=== PATIENT | female | born 1930 | race Caucasian/White ===

== ENCOUNTER → 2017-04-02 | Outpatient (CLI) | payer MEDICARE ==
[2014-11-16 15:46] VITALS: BMI 31.6
[~2017-04-02] MED LIST: ACET-2007 PO; ALEN70TA43 PO; ASPI-1471 PO; ASPI81TA86 PO; ATOR20TA65 PO; AZIT-17 PO; BISA-71 PO; BLOO-1777 MC; BLOO1EAC MC; BLOO1STR16 MC; CALC-488 PO; CARB15DR74 OP; CEFU250T67 PO; CEPH-13 PO; CHOL10005 PO; CHOL100052 PO; CHOL200038 PO; DOCU-416 PO; FLU IM; FLU150 PO; FURO-45 PO; FURO-47 PO; GLIM2TAB43 PO; GLIM4TAB50 PO; INSU100I30 SQ; INSU100I30 SUBQ; LANC-1295 MC; LANI SUBQ; LEV112 PO; LEVO-3 PO; LID5T TP; LOR5/325 PO; LOVA40TA89 PO; MAGN296S6 PO; METF-410 PO; METF-415 PO; MIRA50TA PO; MOM PO; NITR-105 PO; NYST15CR32 TP; ONDA4TAB PO; ONDA4TAB9 PO; OXYB10TA21 PO; OXYGENHOME INH; PHEN200T32 PO; PNEU0.5D3 IM; POLY17PO25 PO; POTA-23 PO; POTA10CA40 PO; POTA20TA85 PO; RIS150PT PO; SIMV-54 PO; SOLI10TA8 PO; SPIR25TA76 PO; SPIR25TA78 PO; SULF-198 PO; TERB250T74 PO; TRAM-420 PO; TRAM-627 PO; WARF-18 PO; WARF2.5T11 PO; WARF2TAB81 PO; WARF3TAB35 PO; WARF3TAB43 PO; WARF6TAB36 PO; [UNRECOGNIZED DRUG - CODE] EXT
== END ==
LOC: LAB 09:08
PROVIDERS: ATTEND Emergency Medicine
DX: J02.9 Acute pharyngitis, unspecified (principal)
CPT/HCPCS: 87070

== ENCOUNTER → 2017-04-09 | Outpatient (CLI) | payer MEDICARE ==
[2014-11-16 15:46] VITALS: BMI 31.6
[~2017-04-09] MED LIST changes: +MENT7.6L2 PO
== END ==
LOC: ZZSPRING 03:12
PROVIDERS: ATTEND Emergency Medicine
DX: R07.0 Pain in throat (principal); E11.9 Type 2 diabetes mellitus without complications

== ENCOUNTER → 2017-04-09 | Outpatient (CLI) | payer MEDICARE ==
[2014-11-16 15:46] VITALS: BMI 31.6
[2017-04-09 08:51] LABS: INR 2.54
== END ==
LOC: ZZSPRING 03:12
PROVIDERS: ATTEND Pharmacist Pharmacotherapy
DX: I26.99 Other pulmonary embolism without acute cor pulmonale (principal); Z79.01 Long term (current) use of anticoagulants
CPT/HCPCS: 36415; 85610

== ENCOUNTER → 2017-04-16 | Outpatient (CLI) | payer MEDICARE ==
[2014-11-16 15:46] VITALS: BMI 31.6
== END ==
LOC: LAB 02:34
PROVIDERS: ATTEND Emergency Medicine
DX: E11.9 Type 2 diabetes mellitus without complications (principal)
CPT/HCPCS: 36415; 83036

== ENCOUNTER → 2017-05-07 | Outpatient (CLI) | payer MEDICARE ==
[2014-11-16 15:46] VITALS: BMI 31.6
[~2017-05-07] MED LIST changes: -WARF-18 PO; +WARF3TAB14 PO; -WARF3TAB43 PO; +WARF5TAB23 PO
[2017-05-07 08:46] LABS: INR 2.32
== END ==
LOC: ZZSPRING 02:59
PROVIDERS: ATTEND Pharmacist Pharmacotherapy
DX: I26.99 Other pulmonary embolism without acute cor pulmonale (principal)
CPT/HCPCS: 36415; 85610

== ENCOUNTER → 2017-06-04 | Outpatient (CLI) | payer MEDICARE ==
[2014-11-16 15:46] VITALS: BMI 31.6
[2017-06-04 08:48] LABS: INR 1.45
== END ==
LOC: ZZSPRING 06-03 07:58
PROVIDERS: ATTEND Pharmacist Pharmacotherapy
DX: I26.99 Other pulmonary embolism without acute cor pulmonale (principal); Z79.01 Long term (current) use of anticoagulants
CPT/HCPCS: 36415; 85610

== ENCOUNTER → 2017-06-11 | Outpatient (CLI) | payer MEDICARE ==
[2014-11-16 15:46] VITALS: BMI 31.6
[2017-06-11 08:29] LABS: INR 2.31
== END ==
LOC: ZZSPRING 06-10 09:37
PROVIDERS: ATTEND Pharmacist Pharmacotherapy
DX: Z51.81 Encounter for therapeutic drug level monitoring (principal); I26.99 Other pulmonary embolism without acute cor pulmonale; Z79.01 Long term (current) use of anticoagulants
CPT/HCPCS: 36415; 85610

== ENCOUNTER → 2017-07-09 | Outpatient (CLI) | payer MEDICARE ==
[2014-11-16 15:46] VITALS: BMI 31.6
[~2017-07-09] MED LIST changes: +WARF2TAB13 PO; -WARF2TAB81 PO; +WARF6TAB13 PO; -WARF6TAB36 PO
[2017-07-09 08:42] LABS: INR 2.67
== END ==
LOC: ZZSPRING 00:18
PROVIDERS: ATTEND Pharmacist Pharmacotherapy
DX: I26.99 Other pulmonary embolism without acute cor pulmonale (principal); Z79.01 Long term (current) use of anticoagulants
CPT/HCPCS: 36415; 85610

== ENCOUNTER → 2017-08-06 | Outpatient (CLI) | payer MEDICARE ==
[2014-11-16 15:46] VITALS: BMI 31.6
[~2017-08-06] MED LIST changes: -METF-410 PO; +METF-411 PO
[2017-08-06 08:51] LABS: INR 3.05
== END ==
LOC: ZZSPRING 00:59
PROVIDERS: ATTEND Pharmacist Pharmacotherapy
DX: Z51.81 Encounter for therapeutic drug level monitoring (principal); I26.99 Other pulmonary embolism without acute cor pulmonale
CPT/HCPCS: 36415; 85610

== ENCOUNTER → 2017-09-03 | Outpatient (CLI) | payer MEDICARE ==
[2014-11-16 15:46] VITALS: BMI 31.6
[2017-09-03 09:24] LABS: INR 3.32
== END ==
LOC: ZZSPRING 00:43
PROVIDERS: ATTEND Pharmacist Pharmacotherapy
DX: I26.99 Other pulmonary embolism without acute cor pulmonale (principal)
CPT/HCPCS: 36415; 85610

== ENCOUNTER → 2017-09-17 | Outpatient (CLI) | payer MEDICARE ==
[2014-11-16 15:46] VITALS: BMI 31.6
[2017-09-17 08:49] LABS: INR 3.36
== END ==
LOC: ZZSPRING 01:37
PROVIDERS: ATTEND Pharmacist Pharmacotherapy
DX: I26.99 Other pulmonary embolism without acute cor pulmonale (principal)
CPT/HCPCS: 36415; 85610

== ENCOUNTER → 2017-10-01 | Outpatient (CLI) | payer MEDICARE ==
[2014-11-16 15:46] VITALS: BMI 31.6
[~2017-10-01] MED LIST changes: -SPIR25TA78 PO; +SPIR25TA80 PO
[2017-10-01 08:52] LABS: INR 3.19
== END ==
LOC: ZZSPRING 00:19
PROVIDERS: ATTEND Pharmacist Pharmacotherapy
DX: I26.99 Other pulmonary embolism without acute cor pulmonale (principal)
CPT/HCPCS: 36415; 85610

== ENCOUNTER → 2017-10-29 | Outpatient (CLI) | payer MEDICARE ==
[2014-11-16 15:46] VITALS: BMI 31.6
[2017-10-29 08:51] LABS: INR 1.17
== END ==
LOC: ZZSPRING 00:57
PROVIDERS: ATTEND Pharmacist Pharmacotherapy
DX: Z51.81 Encounter for therapeutic drug level monitoring (principal); Z79.01 Long term (current) use of anticoagulants; I26.99 Other pulmonary embolism without acute cor pulmonale
CPT/HCPCS: 36415; 85610

== ENCOUNTER → 2017-11-12 | Outpatient (CLI) | payer MEDICARE ==
[2014-11-16 15:46] VITALS: BMI 31.6
[2017-11-12 08:25] LABS: INR 4.09
== END ==
LOC: ZZSPRING 05:49
PROVIDERS: ATTEND Pharmacist Pharmacotherapy
DX: Z51.81 Encounter for therapeutic drug level monitoring (principal); Z79.01 Long term (current) use of anticoagulants
CPT/HCPCS: 36415; 85610

== ENCOUNTER → 2017-11-19 | Outpatient (CLI) | payer MEDICARE ==
[2014-11-16 15:46] VITALS: BMI 31.6
[2017-11-20 08:12] LABS: INR 3.7
== END ==
LOC: ZZSPRING 01:08
PROVIDERS: ATTEND Pharmacist Pharmacotherapy
DX: I26.99 Other pulmonary embolism without acute cor pulmonale (principal)
CPT/HCPCS: 36415; 85610

== ENCOUNTER → 2017-12-03 | Outpatient (CLI) | payer MEDICARE ==
[2014-11-16 15:46] VITALS: BMI 31.6
[~2017-12-03] MED LIST changes: -METF-411 PO; -METF-415 PO; +METF-450 PO; +METF-451 PO
== END ==
LOC: ZZSPRING 06:04
PROVIDERS: ATTEND Emergency Medicine
DX: E03.9 Hypothyroidism, unspecified (principal); E11.9 Type 2 diabetes mellitus without complications; M85.80 Other specified disorders of bone density and structure, unspecified site
CPT/HCPCS: 82040; 82247; 82306; 82310; 82374; 82435; 82465; 82565; 82947; 83036; 83718; 84075; 84132; 84155; 84295; 84443; 84450; 84460; 84478; 84520; 85027

== ENCOUNTER → 2017-12-10 | Outpatient (CLI) | payer MEDICARE ==
[2014-11-16 15:46] VITALS: BMI 31.6
[~2017-12-10] MED LIST changes: +AMOX-559 PO
[2017-12-10 08:24] LABS: INR 1.43
== END ==
LOC: ZZSPRING 02:00
PROVIDERS: ATTEND Pharmacist Pharmacotherapy
DX: I26.99 Other pulmonary embolism without acute cor pulmonale (principal)
CPT/HCPCS: 36415; 85610

== ENCOUNTER → 2017-12-10 | Outpatient (CLI) | payer MEDICARE ==
[2014-11-16 15:46] VITALS: BMI 31.6
[2017-12-10 16:30] LABS: PLATELET COUNT, AUTOMATED 291 K/uL (150-450)
== END ==
LOC: LAB 14:54
PROVIDERS: ATTEND Emergency Medicine
DX: L03.90 Cellulitis, unspecified (principal)
CPT/HCPCS: 36415; 82310; 82374; 82435; 82565; 82947; 84132; 84295; 84520; 85025; 86140

== ENCOUNTER 2017-12-13 09:40 | Outpatient (RCR) | payer MEDICARE ==
[2014-11-16 15:46] VITALS: BMI 31.6
[2017-12-13] MEDS ORDERED: LIDOCAINE/SOD BICARB 8.4% SYR ID PRN (09:50)
[2017-12-13] MEDS ORDERED: NS(*) 0.9% 100 ML BAG 100 ML IVPB PRN (09:50)
[2017-12-13] MEDS ORDERED: DEXTROSE 5%(*) 100 ML BAG 100 ML IVPB PRN (09:50)
[2017-12-13 10:01] VITALS: BP 145/75
[2017-12-13] MEDS ORDERED: FUROSEMIDE 40 MG/4 ML VIAL IVP ONE (10:15)
[2017-12-13] MEDS ORDERED: POTASSIUM CHL 20 MEQ TABCR PO ONE (10:15)
[2017-12-19] MEDS ORDERED: ALEN70SO PO (16:01)
[2017-12-19] MEDS ORDERED: WARF3TAB14 PO (16:01)
[2017-12-19] MEDS ORDERED: DEXT1DRO15 OP (16:19)
[2017-12-19] MEDS ORDERED: MOM PO (16:19)
[2017-12-19] MEDS ORDERED: ONDA4TAB9 PO (16:19)
[2017-12-19] MEDS ORDERED: POLY17PO25 PO (16:19)
[2017-12-19] MEDS ORDERED: CALC-488 PO (16:19)
[2017-12-19] MEDS ORDERED: CALC-630 PO (16:19)
[2017-12-19] MEDS ORDERED: GUAI-244 PO (16:19)
[2017-12-23] MEDS ORDERED: CALC-630 PO (13:55)
[2017-12-27] MEDS ORDERED: SULF1TAB24 PO (09:52)
[2017-12-27] MEDS ORDERED: WARF3TAB14 PO (09:52)
[2017-12-31] MEDS ORDERED: GLIM1TAB25 PO (15:03)
[2018-01-01] MEDS ORDERED: FLU180SY11 IM (08:59)
[2018-01-02] MEDS ORDERED: WARF3TAB14 PO (09:51)
[2018-01-17] MEDS ORDERED: DOCU-416 PO (15:55)
== END 2018-01-15 09:32 | disposition home or self-care (01) ==
LOC: SPU 09:40
PROVIDERS: ATTEND Emergency Medicine
DX: L03.90 Cellulitis, unspecified (principal)
CPT/HCPCS: 96365; A9270; J1940

== ENCOUNTER 2017-12-19 12:12 | Inpatient (IN) | payer MEDICARE ==
[~2017-12-19] VITALS: Ht 162.6 cm; Wt 83.9 kg
[~2017-12-19 12:12] MED LIST changes: -ALEN70SO PO; -CALC-630 PO; -DEXT1DRO15 OP; -GUAI-244 PO
[2017-12-19 12:32] VITALS: BP 123/56
[2017-12-19] MEDS ORDERED: POLYETHYLENE GLYCOL 17 GM PKT PO PRN (14:15)
--- NOTE | 2017-12-19 14:31 | History & Physical ---
History of Present Illness Chief Complaint Cellulitis History of Present Illness This patient was directly admitted from the clinic for cellulitis of the right big toe. She first became symptomatic 2 weeks ago after having her toe nail clipped. She reports that the toe became red, swollen, and was draining puss. She was seen at the Urgent Care and was told that a wound culture was positive for MRSA. She was placed on doxycycline at that time, but was not improving. She was changed over to Augmentin and Bactrim by Dr. Hernández on 12/10. She returned for follow up today and it was found that her CRP was increased. History Problems: (1) Type II diabetes mellitus Status: Chronic (2) Overactive bladder Status: Chronic (3) Thromboembolism of deep veins of lower extremity Status: Resolved (4) Pulmonary embolism Status: Resolved (5) Hypothyroid Status: Chronic (6) History of hysterectomy Status: Chronic (7) History of laminectomy Status: Chronic (8) History of tonsillectomy Status: Chronic (9) History of shoulder surgery Status: Chronic (10) History of foot surgery Status: Chronic (11) Presence of vena cava filter Status: Chronic Home Meds Active Scripts Potassium Chloride (POTASSIUM CHLORIDE) 10 Meq Capsule.er, 2 CAP PO QDAY, #180 CAP 3 Refills Prov:TRENT HERNÁNDEZ MD 10/10/17 Spironolactone (SPIRONOLACTONE) 25 Mg Tablet, 0.5 TAB PO DAILY, #45 TAB 3 Refills Prov:MIKO PATTERSON MD 06/27/17 Glimepiride (GLIMEPIRIDE) 4 Mg Tablet, 0.5 TAB PO QDAY, #45 TAB 4 Refills Prov:TRENT HERNÁNDEZ MD 06/18/17 Warfarin Sodium (WARFARIN SODIUM) 3 Mg Tablet, 1-2 TAB PO QDAY, #132 TAB 3 Refills Prov:TRENT HERNÁNDEZ MD 06/13/17 Diaper,Brief,Adult, Disposable (Depend Fit-Flex) 1 Each Each, EA EXT TID, #270 Depend underwear max ABS womens size large Prov:TRENT HERNÁNDEZ MD 05/30/17 Acetaminophen (MAPAP) 325 Mg Tab, 650 MG PO BID PRN for PAIN OR FEVER 100 OR GREATER, #360 TAB 11 Refills Prov:TRENT HERNÁNDEZ MD 04/16/17 Menthol (Cough Drops) 7.6 Mg Lozenge, 1 LOZENGE PO PRN, #1 BOX 0 Refills Prov:TRENT HERNÁNDEZ MD 04/05/17 Docusate Sodium (COLACE) 100 Mg Capsule, 2 CAP PO BID, #360 CAPSULE 4 Refills Prov:TRENT HERNÁNDEZ MD 12/21/16 Solifenacin Succinate (VESICARE) 10 Mg Tablet, 1 TAB PO QDAY, #90 TAB 1 Refill Prov:TRENT HERNÁNDEZ MD 12/21/16 Simvastatin (SIMVASTATIN) 40 Mg Tablet, 40 MG PO HS, #90 TAB 3 Refills Prov:TRENT HERNÁNDEZ MD 12/21/16 Calcium Carbonate (CALCIUM CARBONATE) 500 Mg Tablet, 2 TAB PO DAILY, #180 TAB 3 Refills Prov:TRENT HERNÁNDEZ MD 12/21/16 Levothyroxine Sodium (LEVOTHYROXINE SODIUM) 0.112 Mg Tab, 1 TAB PO QDAY, #90 TAB 4 Refills Prov:TRENT HERNÁNDEZ MD 12/21/16 Blood Sugar Diagnostic (FREESTYLE LITE TEST STRIPS) 1 Each Strip, 1 EACH MC DAILY PRN for as directed, #1 BOX 4 Refills Check blood sugar as needed. Prov:TRENT HERNÁNDEZ MD 12/21/16 Furosemide (FUROSEMIDE) 40 Mg Tablet, 2 TAB PO DAILY, #90 TAB 4 Refills Prov:TRENT HERNÁNDEZ MD 12/21/16 Alendronate Sodium (FOSAMAX) 70 Mg Tablet, 70 MG PO QWK, #12 TAB 4 Refills Prov:TRENT HERNÁNDEZ MD 12/21/16 Cholecalciferol (Vitamin D3) (VITAMIN D3) 1,000 Unit Tablet, 1 TAB PO DAILY, #90 TAB 4 Refills Prov:TRENT HERNÁNDEZ MD 12/21/16 Aspirin (ASPIRIN EC) 81 Mg Tabec, 1 TAB PO QDAY, #90 TAB 4 Refills Prov:TRENT HERNÁNDEZ MD 12/21/16 Polyethylene Glycol 3350 (MIRALAX) 17 Gm Powd.pack, 1 PACK PO PRN, #30 PACK 1 Refill Prov:TRENT HERNÁNDEZ MD 12/21/16 Carboxymethylcellulos/Glycerin (REFRESH OPTIVE EYE DROPS) 15 Ml Drops, 1-2 DROP OP PRN PRN for DISCOMFORT, #1 BOTTLE 6 Refills Prov:TRENT HERNÁNDEZ MD 12/21/16 Oxygen (OXYGEN) Inha, 2 L INH HS, #2 L Prov:TRENT HERNÁNDEZ MD 11/10/15 Discontinued Scripts Sulfamethoxazole/Trimet 800-160 Mg Tab (BACTRIM DS TABLET) 1 Each Tablet, 1 TAB PO Q12H, #14 TAB Prov:TRENT HERNÁNDEZ MD 12/10/17 Amoxicillin/Pot Clav 875-125 Mg Tab (AUGMENTIN 875-125 TABLET) 1 Each Tablet, 1 TAB PO Q12H, #14 TAB Prov:TRENT HERNÁNDEZ MD 12/10/17 Allergies: Coded Allergies: NSAIDS (Non-Steroidal Anti-Inflamma (Verified Allergy, Unknown, 10/10/15) codeine (Verified Allergy, Unknown, 10/10/15) tramadol (Verified Adverse Reaction, Severe, Severe nausea , 04/02/17) Patient History: Cancer of nasal cavity FH: COPD (chronic obstructive pulmonary disease) BROTHER OR SISTER, , Age:Unknown CHILD, , Age:60 years and older CHILD, , Age:60 years and older FH: heart disease FATHER, , Age:80 FH: pneumonia MOTHER, , Age:60 years and older FH: skin cancer No Family History of: FH: Alzheimers disease Hx Smoking: No Smoking Status: Never Smoker Caffeine Intake: Coffee Caffeine/Cups Per Day: 2 cups Hx Alcohol Use: No Hx Substance Use Disorder: No Social Drug Use: Never Review of Systems All Systems Reviewed/Normal: Yes Exam Vital Signs Vital Signs Date Time Temp Pulse Resp B/P (MAP) Pulse Ox O2 Delivery O2 Flow Rate FiO2 12/19/17 12:32 97.9 70 16 123/56 (78) 96 Nasal Cannula 2.0 Neuro: No Gross deficits Eyes: PERRLA Cardiovascular: Regular Rate and Rhythm Respiratory: Other (Diminished breath sounds bilateral.) GI: Abd Soft and Non-Tender Extremities: Other (Bilateral chronic skin changes to both lower legs.) Integumentary: Other (Preexisting wounds on buttocks.) Assessment and Plan Problems: (1) Cellulitis of right toe Assessment & Plan: She developed a cellulitis and open wound on her great toe approximately 2 weeks ago. She has been on treatment with doxycycline and then converted to Augmentin and Bactrim on 12/11. It is reported that a wound culture was positive for MRSA, but no results are available in our system. The wound is now closed with no surrounding erythema. However, her CRP is elevated from what it was previously. A plain radiograph has been ordered to evaluate for bone involvement. We will defer antibiotics at this time. A repeat CRP is ordered for the morning. (2) Abnormal chest x-ray Assessment & Plan: She denies any cough, fever, or other respiratory symptoms. Her x-ray was read as a possible right sided infiltrate, but it really looks unchanged compared to previous studies. (3) History of pulmonary embolism Assessment & Plan: She is on chronic treatment with warfarin, but is supra therapeutic without active bleeding. We will hold her warfarin. Daily INR is ordered. (4) Chronic edema Assessment & Plan: She is on chronic treatment with Lasix and spironolactone. (5) Type II diabetes mellitus Status: Chronic Assessment & Plan: She is on chronic treatment with glimepiride. We have also placed her on sliding scale level #1. (6) Overactive bladder Status: Chronic Assessment & Plan: She is on chronic treatment with Vesicare. Copies to: TRENT HERNÁNDEZ MD ; Venous Thromboembolism Antithrombotics Is Pt On Any Antithrombotics?: Yes BASILIO MENDOZA DO Dec 19, 2017 14:31
--- NOTE | 2017-12-19 15:03 | RADIOLOGY IMAGING REPORT ---
FACILITY: [facility] PATIENT NAME: Keyla Graves : 1930 MR: [id number] V: [id number] EXAM DATE: ORDERING PHYSICIAN: BASILIO MENDOZA TECHNOLOGIST: Location: [facility] [place] Patient: Keyla Graves : 1930 Visit/Account:[id number] Date of Sevice: 12/19/2017 FOOT 3 VIEW RIGHT Indication: Cellulitis Comparison: None Available Findings: No evidence of fracture, dislocation, or acute osseous abnormality of the right foot. The bones are diffusely osteopenic. No erosive changes are identified. Diffuse soft tissue swelling is noted over the dorsum of the foot overlying the metatarsals. There i s a moderate to severe hallux valgus deformity with underlying degenerative change. Bone screws across the medial malleolus. IMPRESSION: 1. No erosive changes are seen to suggest underlying osteomyelitis. Moderate to severe soft tissue s welling is noted over the dorsum of the foot without underlying bony abnormality. Report Dictated By: Elliott Good at 12/19/2017 2:58 PM Report E-Signed By: Elliott Good at 12/19/2017 3:00 PM WSN:[email or web address]
[2017-12-19] MEDS ORDERED: WARF3TAB14 PO (16:01)
[2017-12-19] MEDS ORDERED: ALEN70SO PO (16:01)
[2017-12-19] MEDS ORDERED: ONDA4TAB9 PO (16:19)
[2017-12-19] MEDS ORDERED: CALC-630 PO (16:19)
[2017-12-19] MEDS ORDERED: DEXT1DRO15 OP (16:19)
[2017-12-19] MEDS ORDERED: CALC-488 PO (16:19)
[2017-12-19] MEDS ORDERED: MOM PO (16:19)
[2017-12-19] MEDS ORDERED: POLY17PO25 PO (16:19)
[2017-12-19] MEDS ORDERED: GUAI-244 PO (16:19)
[2017-12-19 16:41] VITALS: BP 101/42
[2017-12-19 19:29] VITALS: BP 103/49
[2017-12-19] MEDS: SIMVASTATIN 40 MG TAB PO SCH (21:32)
[2017-12-19] MEDS: ACETAMINOPHEN 325 MG TAB PO PRN (21:32)
[2017-12-20] VITALS (11 sets, daily range): BP systolic 40–118; BP diastolic 38–59; Ht 162.6 cm; Wt 83.9 kg
[2017-12-20 06:03] LABS: PLATELET COUNT, AUTOMATED 241 K/uL (150-450)
[2017-12-20 06:30] LABS: INR 6.22
[2017-12-20] MEDS: LEVOTHYROXINE SOD 0.112 MG TAB PO SCH (07:22)
[2017-12-20] MEDS ORDERED: FUROSEMIDE 80 MG TAB PO SCH (09:00)
[2017-12-20] MEDS ORDERED: SPIRONOLACTONE 25 MG TAB PO SCH (09:00)
[2017-12-20] MEDS ORDERED: NS(*) 0.9% 500 ML BAG 500 ML ONE ×2 (09:37→11:21)
[2017-12-20] MEDS ORDERED: PHYTONADIONE 5 MG TAB PO ONE (09:50)
[2017-12-20] MEDS ORDERED: VANCOMYCIN(*) 1 GM VIAL 2 GM in NS(*) 0.9% 250 ML BAG 250 ML IVPB ONE (10:00)
[2017-12-20] MEDS: SOLIFENACIN SUCCINATE 5 MG TAB PO SCH (10:03)
[2017-12-20] MEDS: ACETAMINOPHEN 325 MG TAB PO PRN ×2 (10:03→17:02)
[2017-12-20] MEDS: GLIMEPIRIDE 2 MG TAB PO SCH (10:03)
[2017-12-20] MEDS: POTASSIUM CHL 10 MEQ TABCR PO SCH (10:10)
[2017-12-20] MEDS: INSULIN HUM LISPRO 100 UN/ML 3 ML VIAL SUBQ PRN ×3 (11:38→20:47)
--- NOTE | 2017-12-20 11:48 | Hospitalist Progress Note ---
Subjective Progress Notes Subjective The patient states she is having severe pain in her R great toe. She states it ached all night. She states the pain is getting worse. She denies cough or shortness of breath. She states she has had urinary urgency and dribbling which is new for her as well. Physical Exam Vital Signs Date Time Temp Pulse Resp B/P (MAP) Pulse Ox O2 Delivery O2 Flow Rate FiO2 12/20/17 11:02 99.0 67 16 84/44 (57) 90 Nasal Cannula 1.0 Intake and Output 12/20/17 07:00 Intake Total 220 ml Output Total 200 ml Balance 20 ml Intake Oral 220 ml Output Urine Total 200 ml # Voids 1 General Appearance: Alert, Awake, Other (Appears ill.) Neuro: No Gross deficits Eyes: PERRLA Cardiovascular: Regular Rate and Rhythm Respiratory: Clear to Auscultation GI: Soft and Non-Tender Extremities: Warm, Other (Chronic venous stasis changes bilaterally. Trace to 1+ edema.) Integumentary: Other (R great toe bright red, swollen and with increased warmth to the touch. Very tender to light touch. No obvious drainage. Buttocks with purplish discoration and superficial "abrasions" bilaterally. No redness or drainage.) Psych: Alert & Oriented X3, Appropriate Mood & Affect Result Diagram: 12/20/1754512/20/17545 Assessment and Plan Problems: (1) Cellulitis of right toe Assessment & Plan: She developed a cellulitis and open wound on her great toe approximately 2 weeks ago. She has been on treatment with doxycycline and then converted to Augmentin and Bactrim on 12/11. Wound culture (12/07 [facility]) is positive for MRSA and Acinetobacter. The wound is now closed with surrounding erythema, increased warmth and marked tenderness to palpation. Her CRP has increased from 2.1 on 12/10/17 to 18.5 today. A plain radiograph showed no evidence of bone involvement. Based on her culture results from 12/07, will start Vancomycin and Unasyn to cover (see above). (2) Abnormal chest x-ray Assessment & Plan: She denies any cough, fever, or other respiratory symptoms. Her x-ray was read as a possible right sided infiltrate, but it has not appreciably changed compared to previous studies. (3) History of pulmonary embolism Assessment & Plan: She is on chronic treatment with warfarin, but is supra therapeutic at INR > 6. She has some bruising, has dropped her BP, and has decu bitus ulcers over her sacral area that may need debriding. For these reasons, will treat with vitamin K today. We will hold her warfarin. Daily INR is ordered. She does have an IVC filter in place. (4) Chronic edema Assessment & Plan: She is on chronic treatment with Lasix and spironolactone which are on hold due to systolic BPs in the 80s. (5) Type II diabetes mellitus Status: Chronic Assessment & Plan: She is on chronic treatment with glimepiride. We have also placed her on sliding scale level #1. (6) Overactive bladder Status: Chronic Assessment & Plan: She is on chronic treatment with Vesicare. She complains of increased urgency and dribbling. UA and culture ordered, cath specimen, but the patient refused. (7) Hypotension Status: Acute Assessment & Plan: Etiology unclear. Will hold diuretics, give a 500cc bolus of NS, recheck H/H to make sure she is not having blood loss due to supratherapeutic INR and check a lactate to see if she is developing sepsis. (8) Decubitus ulcer of sacral area Status: Acute Assessment & Plan: PT wound care to stage. They will provide recs for offloading the sacrum and follow the wounds. Time Spent on Plan of Care: < 30 min Exam Sepsis Risk: No Definite Risk BRUCE BONNER MD Dec 20, 2017 11:48
--- NOTE | 2017-12-20 12:40 | EKG ---
FAC[place]: [facility] [place] PATIENT NAME: HIREN PRITCHETT : [id number] MR: [id number] V: [id number] EXAM DATE: ORDERING PHYSICIAN: BRUCE BONNER TECHNOLOGIST: Test Reason : CHEST PAIN Blood Pressure : / mmHG Vent. Rate : 068 BPM Atrial Rate : 068 BPM P-R Int : 164 ms QRS Dur : 086 ms QT Int : 402 ms P-R-T Axes : 050 067 042 degrees QTc Int : 427 ms Normal sinus rhythm Normal ECG When compared with ECG of 09-NOV-2014 10:52, No significant change was found Confirmed by BRUCE LINK ([id number]) on 12/20/2017 1:35:07 PM Referred By: Confirmed By:BRUCE LINK
[2017-12-20] MEDS: AMPICILLIN/SULBACT (*) 3 GM VL 3 GM in NS(*) 0.9% 100 ML BAG 100 ML IVPB SCH ×2 (12:41→17:16)
[2017-12-20 16:02] LABS: PLATELET COUNT, AUTOMATED 240 K/uL (150-450)
[2017-12-20] MEDS: NS(*) 0.9% 1000 ML BAG 1,000 ML IV PRN (19:29)
[2017-12-20] MEDS: SIMVASTATIN 40 MG TAB PO SCH (20:43)
[2017-12-21 00:16] VITALS: BP 106/48
[2017-12-21] MEDS: AMPICILLIN/SULBACT (*) 3 GM VL 3 GM in NS(*) 0.9% 100 ML BAG 100 ML IVPB SCH ×4 (00:16→17:36)
[2017-12-21 04:12] VITALS: BP 111/48
[2017-12-21] MEDS: LEVOTHYROXINE SOD 0.112 MG TAB PO SCH (06:08)
[2017-12-21 06:09] LABS: PLATELET COUNT, AUTOMATED 246 K/uL (150-450)
[2017-12-21 06:10] LABS: INR 1.52
[2017-12-21 07:35] VITALS: BP 103/52
[2017-12-21] MEDS ORDERED: INFLUENZA VIRUS VAC 0.5ML SYR IM ONLY ONE (09:00)
[2017-12-21] MEDS ORDERED: VANCOMYCIN(*) 1 GM VIAL 1 GM, VANCOMYCIN (*) 0.5 GM VIAL 0.25 GM in NS(*) 0.9% 250 ML B... IVPB SCH (10:00)
[2017-12-21] MEDS: SOLIFENACIN SUCCINATE 5 MG TAB PO SCH (10:25)
[2017-12-21] MEDS: GLIMEPIRIDE 2 MG TAB PO SCH (10:25)
[2017-12-21] MEDS: POTASSIUM CHL 10 MEQ TABCR PO SCH (10:25)
[2017-12-21] MEDS: ENOXAPARIN 100 MG/ML SYR SC SCH ×2 (10:26→21:13)
[2017-12-21] MEDS: NS(*) 0.9% 1000 ML BAG 1,000 ML IV PRN (10:40)
--- NOTE | 2017-12-21 10:58 | Hospitalist Progress Note ---
Subjective Progress Notes Subjective She reports "not sure" if feeling any better or worse. Still some low grade temps. Physical Exam Vital Signs Date Time Temp Pulse Resp B/P (MAP) Pulse Ox O2 Delivery O2 Flow Rate FiO2 12/21/17 07:35 99.2 72 20 103/52 (69) 90 Nasal Cannula 3.0 Intake and Output 12/21/17 06:59 Intake Total 1990 ml Balance 1990 ml Intake Oral 536 ml IV Total 1455 ml # Voids 2 General Appearance: Alert, Awake Extremities: Other (Right great toe with some erythema over distal aspect/no open areas or drainage/tender to touch) Integumentary: Generalized Fragile Skin, Other (chronic venous stasis changes both lower extremities/sacral decubitus) Result Diagram: 12/21/1755112/21/17551 Assessment and Plan Problems: (1) Cellulitis of right toe Assessment & Plan: She developed a cellulitis and open wound on her great toe approximately 2 weeks ago. She has been on treatment with doxycycline and then converted to Augmentin and Bactrim on 12/11. Wound culture (12/07 [facility]) is positive for MRSA and Acinetobacter. The wound is now closed with some surrounding erythema, increased warmth and marked tenderness to palpation. Her CRP had also increased. A plain radiograph showed no evidence of bone involvement. Based on her culture results from 12/07, she is on IV Vancomycin and Unasyn. (2) Abnormal chest x-ray Assessment & Plan: She denies any cough, fever, or other respiratory symptoms. Her x-ray was read as a possible right sided infiltrate, but it has not appreciably changed compared to previous studies. The IV antibiotics for her cellulitis would provide coverage if she had a bacterial pneumonia (3) History of pulmonary embolism Assessment & Plan: She is on chronic treatment with warfarin, but was supra therapeutic at INR > 6 yesterday and received some vitamin K yesterday. We did hold her warfarin as well. She does have an IVC filter in place. Her INR is now sub-therapeutic at 1.5. She will be started on SQ Lovenox and resume her warfarin at lower dose. Follow INR. (4) Chronic edema Assessment & Plan: She is on chronic treatment with Lasix and spironolactone which are on hold due to borderline BP readings. Watch closely. (5) Type II diabetes mellitus Status: Chronic Assessment & Plan: She is on chronic treatment with glimepiride. We have also placed her on sliding scale insulin. (6) Overactive bladder Status: Chronic Assessment & Plan: She is on chronic treatment with Vesicare. She complains of increased urgency and dribbling. UA and culture ordered (cath specimen), but the patient refused. (7) Decubitus ulcer of sacral area Status: Acute Assessment & Plan: PT wound care following sacral decubitus. Exam Sepsis Risk: No Definite Risk HAYLEY BONNER MD Dec 21, 2017 10:58
[2017-12-21] MEDS: INSULIN HUM LISPRO 100 UN/ML 3 ML VIAL SUBQ PRN (12:24)
[2017-12-21] MEDS ORDERED: WARFARIN SOD 4 MG TAB PO SCH (13:00)
[2017-12-21 15:14] VITALS: BP 109/46
[2017-12-21 19:35] VITALS: BP 106/50
[2017-12-21] MEDS: SIMVASTATIN 40 MG TAB PO SCH (21:11)
[2017-12-21 23:13] VITALS: BP 106/49
[2017-12-22] MEDS: AMPICILLIN/SULBACT (*) 3 GM VL 3 GM in NS(*) 0.9% 100 ML BAG 100 ML IVPB SCH ×2 (00:18→05:54)
[2017-12-22] MEDS: LEVOTHYROXINE SOD 0.112 MG TAB PO SCH (06:14)
[2017-12-22 06:29] LABS: INR 1.43
[2017-12-22 06:30] LABS: PLATELET COUNT, AUTOMATED 248 K/uL (150-450)
[2017-12-22] MEDS: GLIMEPIRIDE 2 MG TAB PO SCH (08:34)
[2017-12-22] MEDS: POTASSIUM CHL 10 MEQ TABCR PO SCH (08:34)
[2017-12-22] MEDS: ENOXAPARIN 100 MG/ML SYR SC SCH (08:34)
[2017-12-22] MEDS: SOLIFENACIN SUCCINATE 5 MG TAB PO SCH (08:36)
[2017-12-22] MEDS ORDERED: VANCOMYCIN(*) 1 GM VIAL 1 GM, VANCOMYCIN (*) 0.5 GM VIAL 0.25 GM in NS(*) 0.9% 250 ML B... IVPB SCH ×2 (09:00→10:00)
[2017-12-22] MEDS: WARFARIN SOD 3 MG TAB PO SCH (12:34)
[2017-12-22] MEDS: TRIMETH/SULFA DS 160-800MG TAB PO SCH ×2 (12:34→20:55)
--- NOTE | 2017-12-22 12:37 | Hospitalist Progress Note ---
Subjective Progress Notes Subjective 87F admitted for cellulitis of R great toe. Reports improvement in symptoms (pain) minimal 1cm redness on tip of toe. Physical Exam Vital Signs Date Time Temp Pulse Resp B/P (MAP) Pulse Ox O2 Delivery O2 Flow Rate FiO2 12/22/17 09:00 91 Nasal Cannula 2.0 12/22/17 08:02 99.6 71 16 12/21/17 23:13 106/49 (68) Intake and Output 12/22/17 07:00 Intake Total 2333 ml Balance 2333 ml Intake Oral 981 ml IV Total 1352 ml # Voids 5 General Appearance: Alert, Awake, No Acute Distress Neuro: No Gross deficits Eyes: PERRLA ENT: Normal Neck: No Masses Cardiovascular: Normal Rhythm & Peripheral Pulses Respiratory: No Respiratory Distress GI: Soft and Non-Tender Musculoskeletal: No Weakness/Pain (Some L hip pain after previous fall, improving) Extremities: Soft and Non Tender Integumentary: Skin Intact without Lesion / Mass Psych: Alert & Oriented X3 Result Diagram: 12/22/1754712/22/17547 Assessment and Plan Problems: (1) Cellulitis of right toe Assessment & Plan: She developed a cellulitis and open wound on her great toe approximately 2 weeks ago. She has been on treatment with doxycycline and then converted to Augmentin and Bactrim on 12/11. Wound culture (12/07 [facility]) is positive for MRSA and Acinetobacter. The wound is now closed with minimal surrounding erythema. Her CRP had also increased. A plain radiograph showed no evidence of bone involvement. Based on her culture results from 12/07, she was on IV Vancomycin and Unasyn. Narrowed 12.22.2017 to Bactrim. (2) Abnormal chest x-ray Assessment & Plan: She denies any cough, fever, or other respiratory symptoms. Her x-ray was read as a possible right sided infiltrate, but it has not appreciably changed compared to previous studies. (3) History of pulmonary embolism Assessment & Plan: She is on chronic treatment with warfarin, but was supra therapeutic at INR > 6 yesterday and received some vitamin K. We did hold her warfarin as well. She does have an IVC filter in place. Her INR is now sub- therapeutic at 1.5. She resumed her warfarin at lower dose given expected need for decrease with Bactrim. Follow INR. (4) Chronic edema Assessment & Plan: She is on chronic treatment with Lasix and spironolactone which are on hold due to borderline BP readings. Watch closely. (5) Type II diabetes mellitus Status: Chronic Assessment & Plan: She is on chronic treatment with glimepiride. We have also placed her on sliding scale insulin. (6) Overactive bladder Status: Chronic Assessment & Plan: She is on chronic treatment with Vesicare. She complains of increased urgency and dribbling. UA and culture ordered (cath specimen), but the patient refused. (7) Decubitus ulcer of sacral area Status: Acute Assessment & Plan: PT wound care following sacral decubitus. Exam Sepsis Risk: No Definite Risk EVANS TY PISANO DO Dec 22, 2017 12:37
[2017-12-22 15:02] VITALS: BP 121/58
--- NOTE | 2017-12-22 17:23 | Antimicrobial Stewardship ---
Antimicrobial Time Out Antimicrobial Stewardship MD Service: Hospitalist Indications: Cellulitis Antimicrobial Used Patient had a cellulitis and open wound on her great toe approximately 2 weeks ago. She has been on outpatient treatment with doxycycline and then changed to Augmentin and Bactrim on 12/11. Wound culture on 12/07 at [facility] was positive for MRSA and Acinetobacter. According to the hospitalist, the wound is now closed with minimal surrounding erythema. Patient's CRP was elevated on admission to [facility]. No bone involvement per plain radiograph. Based on her culture results from 12/07, she was placed on IV Vancomycin and Unasyn on admission. Patient was switched to Bactrim DS po bid 12/22/2017. Culture Results: Yes (see above) Eligible for PO Conversion Eligable for PO Conversion: Yes Reviewed with Provider Reviewed w/ Provider on Rounds: Yes Date Reviewed w/ Provider: Dec 22, 2017 Comments Comments Discussed patient with hospitalist and recommended a Vancomycin Trough be done due to patient's reduced Crcl of 42.78 ml/min. The level was drawn 2 hours late and was 21.15. The hospitalist felt that the Unasyn and Vanco could be stopped and patient started on Bactrim. Patient should receive Bactrim for 1-2 weeks depending on how the toe is healing. BERTO DIEGO Dec 22, 2017 17:23
[2017-12-22 20:15] VITALS: BP 108/64
[2017-12-22] MEDS: SIMVASTATIN 40 MG TAB PO SCH (20:55)
[2017-12-22] MEDS: INSULIN HUM LISPRO 100 UN/ML 3 ML VIAL SUBQ PRN (20:56)
[2017-12-22 23:03] VITALS: BP 111/56
[2017-12-23 04:09] VITALS: BP 125/56
[2017-12-23] MEDS: LEVOTHYROXINE SOD 0.112 MG TAB PO SCH (05:37)
[2017-12-23 05:56] LABS: INR 1.56
[2017-12-23 05:59] LABS: PLATELET COUNT, AUTOMATED 232 K/uL (150-450)
[2017-12-23 07:19] VITALS: BP 97/48
--- NOTE | 2017-12-23 09:15 | Hospitalist Progress Note ---
Subjective Progress Notes Subjective This patient was admitted for possible pneumonia and cellulitis. She had no acute events overnight. Patient Complains of: Cardiovascular: No: Chest Pain Respiratory: No: Shortness of Breath Physical Exam Vital Signs Date Time Temp Pulse Resp B/P (MAP) Pulse Ox O2 Delivery O2 Flow Rate FiO2 12/23/17 08:22 100.0 12/23/17 07:19 71 14 97/48 (64) 94 Nasal Cannula 12/23/17 04:09 2.0 Intake and Output 12/23/17 07:00 Intake Total 2202.5 ml Balance 2202.5 ml Intake Oral 840 ml IV Total 1362.5 ml # Voids 2 Integumentary: Other (Right great toe with distal erythema.) Result Diagram: 12/23/1752612/23/17526 Assessment and Plan Problems: (1) Cellulitis of right toe Assessment & Plan: She developed a cellulitis and open wound on her great toe approximately 2 weeks ago. She has been on treatment with doxycycline and then converted to Augmentin and Bactrim on 12/11. Wound culture (12/07 [facility]) is positive for MRSA and Acinetobacter. The wound is now closed with minimal surrounding erythema. A plain radiograph was negative for osteo, but her CRP was elevated. We are awaiting a repeat CRP. (2) Abnormal chest x-ray Assessment & Plan: She denies any cough, fever, or other respiratory symptoms. Her x-ray was read as a possible right sided infiltrate, but it has not appreciably changed compared to previous studies. (3) History of pulmonary embolism Assessment & Plan: She is on chronic treatment with warfarin, but was supra therapeutic at INR > 6 yesterday and received some vitamin K. We did hold her warfarin as well. She does have an IVC filter in place. Her INR is now sub- therapeutic at 1.5. She resumed her warfarin at lower dose given expected need for decrease with Bactrim. Follow INR. (4) Chronic edema Assessment & Plan: She is on chronic treatment with Lasix and spironolactone which are on hold due to borderline BP readings. Watch closely. (5) Type II diabetes mellitus Status: Chronic Assessment & Plan: She is on chronic treatment with glimepiride. We have also placed her on sliding scale insulin. (6) Overactive bladder Status: Chronic Assessment & Plan: She is on chronic treatment with Vesicare. She complains of increased urgency and dribbling. UA and culture ordered (cath specimen), but the patient refused. (7) Decubitus ulcer of sacral area Status: Acute Assessment & Plan: PT wound care following sacral decubitus. Exam Sepsis Risk: No Definite Risk BASILIO MENDOZA DO Dec 23, 2017 09:15
[2017-12-23] MEDS: GLIMEPIRIDE 2 MG TAB PO SCH (10:12)
[2017-12-23] MEDS: TRIMETH/SULFA DS 160-800MG TAB PO SCH ×2 (10:13→21:54)
[2017-12-23] MEDS: POTASSIUM CHL 10 MEQ TABCR PO SCH (10:13)
[2017-12-23] MEDS: SOLIFENACIN SUCCINATE 5 MG TAB PO SCH (10:13)
[2017-12-23] MEDS: ENOXAPARIN 40 MG/0.4ML SYR SC SCH (10:14)
[2017-12-23 13:32] VITALS: BP 100/47
[2017-12-23] MEDS: WARFARIN SOD 3 MG TAB PO SCH (13:32)
[2017-12-23] MEDS ORDERED: CALC-630 PO (13:55)
[2017-12-23 16:25] VITALS: BP 111/56
[2017-12-23] MEDS: ACETAMINOPHEN 325 MG TAB PO PRN (18:33)
[2017-12-23 18:48] VITALS: BP 136/61
[2017-12-23] MEDS: SIMVASTATIN 40 MG TAB PO SCH (21:54)
[2017-12-23] MEDS: NYSTATIN 100,000 U/GM PWD 15GM TP SCH (21:55)
[2017-12-23 23:26] VITALS: BP 113/53
[2017-12-24] MEDS: ACETAMINOPHEN 325 MG TAB PO PRN (05:56)
[2017-12-24] MEDS: LEVOTHYROXINE SOD 0.112 MG TAB PO SCH (05:56)
[2017-12-24 06:22] LABS: INR 1.7
[2017-12-24 07:43] VITALS: BP 112/52
[2017-12-24] MEDS: SOLIFENACIN SUCCINATE 5 MG TAB PO SCH (09:47)
[2017-12-24] MEDS: TRIMETH/SULFA DS 160-800MG TAB PO SCH ×2 (09:47→21:32)
[2017-12-24] MEDS: POTASSIUM CHL 10 MEQ TABCR PO SCH (09:47)
[2017-12-24] MEDS: GLIMEPIRIDE 2 MG TAB PO SCH (09:47)
[2017-12-24] MEDS: ENOXAPARIN 40 MG/0.4ML SYR SC SCH (09:48)
--- NOTE | 2017-12-24 12:34 | Hospitalist Progress Note ---
Subjective Progress Notes Subjective She has no complaints. Family is concerned that she is a bit more confused this morning. The patient reports sleeping as she usually does, which is intermittent. Physical Exam Vital Signs Date Time Temp Pulse Resp B/P (MAP) Pulse Ox O2 Delivery O2 Flow Rate FiO2 12/24/17 08:30 Nasal Cannula 2.0 12/24/17 07:43 98.7 64 16 112/52 (72) 94 Intake and Output 12/24/17 07:00 Intake Total 462 ml Balance 462 ml Intake Oral 462 ml # Voids 2 General Appearance: Alert, Awake, No Acute Distress Neuro: Other (Knows the events that led her to the hospital, but doesn't know m onth/year. It isn't clear if she knows that she is in the hospital.) Integumentary: Other (Right great toe with a 1cm diameter erythematous area. It is not tender. Not fluctuant. Over the right sacrum, she has a stage 3 pressure sore. No evidence of discharge or extension of erythema from it.) Result Diagram: 12/23/1752612/23/17526 Assessment and Plan Problems: (1) Cellulitis of right toe Assessment & Plan: She developed a cellulitis and open wound on her great toe approximately 2 weeks ago. She has been on treatment with doxycycline and then converted to Augmentin and Bactrim on 12/11. Wound culture (12/07 [facility]) is positive for MRSA and Acinetobacter. The wound is now closed with minimal surrounding erythema. A plain radiograph was negative for osteo, but her CRP is elevated and hasn't improved much since 12/20. She had a fevers yesterday, so will get blood cultures, echo and try to get an MRI of the foot (she has an IVC filter placed about 10 years ago, so trying to get records about the type). (2) Abnormal chest x-ray Assessment & Plan: She denies any cough, fever, or other respiratory symptoms. Her x-ray was read as a possible right sided infiltrate, but it has not appreciably changed compared to previous studies. (3) History of pulmonary embolism Assessment & Plan: She is on chronic treatment with warfarin, but was supra therapeutic at INR > 6 and received some vitamin K. We did hold her warfarin as well. She does have an IVC filter in place. Her INR is now sub-therapeutic at 1.7. She was resumed her warfarin at lower dose given expected need for decrease with Bactrim. Follow INR. (4) Chronic edema Assessment & Plan: She is on chronic treatment with Lasix and spironolactone which are on hold due to borderline BP readings. Watch closely. (5) Type II diabetes mellitus Status: Chronic Assessment & Plan: She is on chronic treatment with glimepiride. We have also placed her on sliding scale insulin. (6) Overactive bladder Status: Chronic Assessment & Plan: She is on chronic treatment with Vesicare. She complains of increased urgency and dribbling. UA and culture ordered (cath specimen), but the patient refused. (7) Decubitus ulcer of sacral area Status: Acute Assessment & Plan: PT wound care following sacral decubitus. Exam Sepsis Risk: No Definite Risk Problem Qualifiers (1) Decubitus ulcer of sacral area: Pressure injury stage: stage 3 Qualified Codes: L89.153 - Pressure ulcer of sacral region, stage 3 CRISTOFER CORDOBA MD Dec 24, 2017 12:34
[2017-12-24] MEDS: WARFARIN SOD 3 MG TAB PO SCH (13:02)
--- NOTE | 2017-12-24 14:16 | Medical Nutrition Therapy ---
Nutrition Anthropometrics Height (Inches): 64.00 Height (Calculated Centimeters: 162.660527 Weight (Pounds): 185 Weight (Calculated Kilograms): 83.915 Donald Nutrition Score: Adequate Donald Nutrition Risk Score: 15 Dietary Referral Nutrition Risk Factors: Nutrition Risk Comment: Physical Findings Physical Appearance: Obese BMI 30-39 Skin Appearance Skin Appearance: Edema Edema Location Modifier: Both Edema Location: Lower Extremity Type of Edema: Degree of Edema: 1+ Gastrointestinal Symptoms GI Symtoms: Change in Bowel Pattern Tube Present: Bowel Sounds: Recent Bowel Pattern: Stool Characteristics: Nutritional Diagnosis Nutritional Risk Acuity 2: St III or IV Press Ulcer (unstaged but open and possible deep tissue) Nutritional Risk Acuity 3: Fair Appetite Nutritional Risk Acuity 4: Modified Diet Past Medical History: Hypothyroid, pulmonary embolism, IVC filter, overactive bladder, hyperlipidemia, T2DM, HTN, hysterectomy, laminectomy, tonsillectomy, orthopedic surgeries x 2 Nutritional Acuity: 2-Moderate Nutrition Diagnosis: Increased Nutrient Needs Nutrition Etiology: Physiological Causes Nutrition Problem/Etiology/Sym: AEB unstaged pressure ulcer, alb 2.3 Adjusted Energy Requirement Re: 1790 (H-B adj for obesity X 1.3 SF) Protein Requirement: 100 (IBW X 1.6 SF) Fluid Requirement: 2000 (25ml/kg) Diet Type: Diabetic Nutrition Intervention: Cont diet as ordered, Encourage intake, Between meal supplement Drug: Warfarin Do Not Serve Any of the Follow: Broccoli, Brussel Sprouts, Spinach, Motley Lettuce, Cranberry Juice Additional Diet Restrictions: PUT PROTEIN POWDER IN APPROPRIATE FOODS Diet Comment To [facility]: OFFER SF NUTR SUPPLMENTS Nutrition Monitoring & Eval Nutrition Goals: Eat 75-100% Meal Nutrition Follow-Up: Fair Intake RD Patient Assessment Time: [address] Assessment Type: RD Assessment Patient Nutrition Acuity: 2-Moderate Follow Up Date: Dec 28, 2017 Nutritional Comment: 12/20 Pt admitted with cellulist to R toe. Pt is T2DM and on diabetic diet. Pt is eating 50-100% of meal.s BG ranging 107-162. H/h is low. BMI in stage 1 obesity range. Pt has 2+ edema to ankles and feet. Will cont to monitor and encourage intake. BK 12/24 Pt cont on diabetic diet. Intake averge 64% with intake improving 76-100% past 2 days. Pt has unstaged but open pressure ulcer to sacral area. Will offer nutr supplment to increase kcal and protein intakw. Alb 2.3. Will cont to monitor. CIERRA DEMARCO Dec 24, 2017 14:15
[2017-12-24 15:00] VITALS: BP 133/56
[2017-12-24 21:24] VITALS: BP 129/64
[2017-12-24] MEDS: NYSTATIN 100,000 U/GM PWD 15GM TP SCH (21:32)
[2017-12-24] MEDS: SIMVASTATIN 40 MG TAB PO SCH (21:32)
[2017-12-24] MEDS: MELATONIN 3 MG TAB PO SCH (21:32)
[2017-12-24 23:38] VITALS: BP 135/64
[2017-12-25 02:56] VITALS: BP 142/65
[2017-12-25] MEDS: LEVOTHYROXINE SOD 0.112 MG TAB PO SCH (05:37)
[2017-12-25 06:12] LABS: PLATELET COUNT, AUTOMATED 273 K/uL (150-450)
[2017-12-25 06:24] LABS: INR 2.22
[2017-12-25 07:48] VITALS: BP 101/45
[2017-12-25] MEDS: SOLIFENACIN SUCCINATE 5 MG TAB PO SCH (08:49)
[2017-12-25] MEDS: TRIMETH/SULFA DS 160-800MG TAB PO SCH ×2 (08:49→21:03)
[2017-12-25] MEDS: POTASSIUM CHL 10 MEQ TABCR PO SCH (08:49)
[2017-12-25] MEDS: ENOXAPARIN 40 MG/0.4ML SYR SC SCH (08:50)
[2017-12-25] MEDS: DOCUSATE SODIUM 100 MG CAP PO SCH ×2 (09:30→21:00)
[2017-12-25] MEDS: POLYETHYLENE GLYCOL 17 GM PKT PO SCH (09:30)
[2017-12-25] MEDS ORDERED: IOPAMIDOL 76% 75 ML INFUS BTL 75 ML ONE (09:45)
[2017-12-25 11:35] VITALS: BP 126/60
[2017-12-25] MEDS: GLIMEPIRIDE 2 MG TAB PO SCH (11:48)
--- NOTE | 2017-12-25 12:07 | RADIOLOGY IMAGING REPORT ---
FACILITY: [facility] [place] PATIENT NAME: Keyla Graves : 1930 MR: [id number] V: [id number] EXAM DATE: ORDERING PHYSICIAN: HAYLEY BONNER TECHNOLOGIST: Location: [facility] Patient: Keyla Graves : 1930 Visit/Account:[id number] Date of Sevice: 12/25/2017 Examination: Computed tomography right foot without and with contrast HISTORY: Possible soft tissue abscess. Grade 2 abscess. TECHNIQUE: Transaxial computed tomography images are obtained of the right foot before and after the administration of 75 mL Isovue 370. Multiplanar reformatted images are graded coronal and sagittal pl anes. One of the following dose optimization techniques was utilized in the performance of this exam: Autom ated exposure control; adjustment of the mA and/or kV according to the patient's size; or use of an i terative reconstruction technique. Specific details can be referenced in the facility's radiology C T exam operational policy. FINDINGS: There has been previous screw fixation of the medial malleolus of the distal tibia causing metal stre ak artifact in this region. There is circumferential subcutaneous edema about the ankle. No well-defi mireya fluid collection is seen. This edema extends to the dorsum of the forefoot most pronounced along the lateral forefoot. No well-defined fluid collection is seen in this region. There is apparent skin ulceration along the medial margin of the distal great toe seen in different p rojections. No bone destruction or cortical irregularity seen to suggest the possibility of osteomyel itis. No well-defined fluid collection to suggest a great toe abscess. There is an apparent hallux va lgus deformity. Correlate with physical exam. There is a hammertoe deformity of the second toe. Midfoot joint spaces are maintained. 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 There is diffuse atrophy of the intrinsic musculature of the foot compatible with chronic denervation change. IMPRESSION: 1. No evidence of right great toe abscess or bone destruction. 2. Soft tissue swelling circumferentially about the ankle and extending to the dorsal and lateral hin dfoot. No fluid collection or abscess. 3. Atrophy of the intrinsic musculature of the foot consistent with chronic denervation changes. Report Dictated By: Andres Carlisle at 12/25/2017 11:48 AM Report E-Signed By: Andres Carlisle at 12/25/2017 12:03 PM WSN:[id number]
--- NOTE | 2017-12-25 12:20 | Hospitalist Progress Note ---
Subjective Progress Notes Subjective Overall, she reports feeling improved. Still some pain in distal right great toe. Physical Exam Vital Signs Date Time Temp Pulse Resp B/P (MAP) Pulse Ox O2 Delivery O2 Flow Rate FiO2 12/25/17 11:35 98.2 77 20 126/60 (82) 93 Nasal Cannula 2.0 Intake and Output 12/25/17 07:00 Intake Total 880 ml Balance 880 ml Intake Oral 880 ml # Voids 3 General Appearance: Alert, Awake Cardiovascular: Regular Rate and Rhythm Respiratory: Other (few fine rales at both bases improve with deep breathing) Extremities: Other (right great toe with small area of erythema/somewhat tender to touch/possible minimal fluccuence noted) Integumentary: Generalized Fragile Skin, Other (chronic venous stasis changes both LE/sacral decubitii unchanged) Result Diagram: 12/25/1730 12/25/17529 Assessment and Plan Problems: (1) Cellulitis of right toe Assessment & Plan: She developed a cellulitis and open wound on her great toe approximately 2 weeks ago. She had been on treatment with doxycycline and then converted to Augmentin and Bactrim on 12/11. Wound culture (12/07 [facility] is positive for MRSA and Acinetobacter. The wound is now closed with minimal surrounding erythema. A plain radiograph was negative for osteo, but her CRP is elevated and hasn't improved much. She had a fever two days ago. Repeat blood cultures negative thus far. Echocardiogram pending. Unable to get an MRI of the foot - she has an IVC filter placed about 10 years ago of unknown type. Will get CT scan of foot/toes to see if any evidence of abscess/osteomyel itis. (2) Abnormal chest x-ray Assessment & Plan: She denies any cough, fever, or other respiratory symptoms. Her x-ray was read as a possible right-sided infiltrate, but it has not appreciably changed compared to previous studies. (3) History of pulmonary embolism Assessment & Plan: She is on chronic treatment with warfarin, but was supra- therapeutic at INR > 6 and received some vitamin K. We did hold her warfarin as well. She does have an IVC filter in place. Her INR is now "low" therapeutic at 2.22. She was restarted on her warfarin at lower dose (3mg daily) given expected need for decrease with Bactrim. Follow INR. (4) Chronic edema Assessment & Plan: She is on chronic treatment with Lasix and spironolactone which are on hold due to borderline BP readings. Watch closely. (5) Type II diabetes mellitus Status: Chronic Assessment & Plan: She is on chronic treatment with glimepiride. We have also placed her on sliding scale insulin. (6) Overactive bladder Status: Chronic Assessment & Plan: She is on chronic treatment with Vesicare. She complains of increased urgency and dribbling. UA and culture ordered (cath specimen), but the patient refused. (7) Decubitus ulcer of sacral area Status: Acute Assessment & Plan: PT wound care following sacral decubitus. Exam Sepsis Risk: No Definite Risk Problem Qualifiers (1) Decubitus ulcer of sacral area: Pressure injury stage: stage 3 Qualified Codes: L89.153 - Pressure ulcer of sacral region, stage 3 HAYLEY BONNER MD Dec 25, 2017 12:20
[2017-12-25] MEDS: WARFARIN SOD 3 MG TAB PO SCH (13:36)
[2017-12-25 14:34] VITALS: BP 113/53
[2017-12-25 19:57] VITALS: BP 128/59
[2017-12-25] MEDS: NYSTATIN 100,000 U/GM PWD 15GM TP SCH (19:57)
[2017-12-25] MEDS: SIMVASTATIN 40 MG TAB PO SCH (21:03)
[2017-12-25] MEDS: MELATONIN 3 MG TAB PO SCH (21:03)
[2017-12-25 23:40] VITALS: BP 116/62
[2017-12-26 03:59] VITALS: BP 128/61
[2017-12-26] MEDS: LEVOTHYROXINE SOD 0.112 MG TAB PO SCH (06:07)
[2017-12-26 06:08] LABS: PLATELET COUNT, AUTOMATED 318 K/uL (150-450)
[2017-12-26 06:11] LABS: INR 2.36
[2017-12-26 07:39] VITALS: BP 102/56
[2017-12-26] MEDS: POLYETHYLENE GLYCOL 17 GM PKT PO SCH (09:00)
[2017-12-26] MEDS: DOCUSATE SODIUM 100 MG CAP PO SCH ×2 (09:00→21:11)
[2017-12-26] MEDS: TRIMETH/SULFA DS 160-800MG TAB PO SCH ×2 (09:04→21:11)
[2017-12-26] MEDS: SOLIFENACIN SUCCINATE 5 MG TAB PO SCH (09:04)
[2017-12-26] MEDS: ENOXAPARIN 40 MG/0.4ML SYR SC SCH (09:04)
[2017-12-26] MEDS: POTASSIUM CHL 10 MEQ TABCR PO SCH (09:04)
--- NOTE | 2017-12-26 09:54 | Hospitalist Progress Note ---
Subjective Progress Notes Subjective This patient was admitted for cellulitis of the toe. She had no acute events overnight. Patient Complains of: Cardiovascular: No: Chest Pain Respiratory: No: Shortness of Breath Physical Exam Vital Signs Date Time Temp Pulse Resp B/P (MAP) Pulse Ox O2 Delivery O2 Flow Rate FiO2 12/26/17 08:08 93 Nasal Cannula 1.0 12/26/17 07:39 98.3 65 20 102/56 (71) Intake and Output 12/26/17 06:59 Intake Total 928 ml Balance 928 ml Intake Oral 928 ml # Voids 5 # Bowel Movements 2 Cardiovascular: Regular Rate and Rhythm Respiratory: Clear to Auscultation Integumentary: Other (Minimal erythema at tip of great toe.) Result Diagram: 12/26/1755212/26/17552 Assessment and Plan Problems: (1) Cellulitis of right toe Assessment & Plan: She developed a cellulitis and open wound on her great toe approximately 2 weeks ago. She had been on treatment with doxycycline and then converted to Augmentin and Bactrim on 12/11. Wound culture (12/07 [facility]) is positive for MRSA and Acinetobacter. The wound is now closed with minimal surrounding erythema. A plain radiograph was negative for osteo, but her CRP was elevated, but has been improving. She had a fever two days ago. Repeat blood cultures negative thus far. A CT scan was negative for osteomyelitis or abscess. An echocardiogram is still pending. (2) Abnormal chest x-ray Assessment & Plan: She denies any cough, fever, or other respiratory symptoms. Her x-ray was read as a possible right-sided infiltrate, but it has not appreciably changed compared to previous studies. (3) History of pulmonary embolism Assessment & Plan: She is on chronic treatment with warfarin, but was supra- therapeutic at INR > 6 and received some vitamin K. We did hold her warfarin as well. She does have an IVC filter in place. Her INR is now "low" therapeutic at 2.22. She was restarted on her warfarin at lower dose (3mg daily) given expected need for decrease with Bactrim. Follow INR. (4) Chronic edema Assessment & Plan: She is on chronic treatment with Lasix and spironolactone which are on hold due to borderline BP readings. Watch closely. (5) Type II diabetes mellitus Status: Chronic Assessment & Plan: She is on chronic treatment with glimepiride. We have also placed her on sliding scale insulin. (6) Overactive bladder Status: Chronic Assessment & Plan: She is on chronic treatment with Vesicare. She complains of increased urgency and dribbling. UA and culture ordered (cath specimen), but the patient refused. (7) Decubitus ulcer of sacral area Status: Acute Assessment & Plan: PT wound care following sacral decubitus. Exam Sepsis Risk: No Definite Risk Problem Qualifiers (1) Decubitus ulcer of sacral area: Pressure injury stage: stage 3 Qualified Codes: L89.153 - Pressure ulcer of sacral region, stage 3 BASILIO MENDOZA DO Dec 26, 2017 09:54
[2017-12-26 11:44] VITALS: BP 134/62
[2017-12-26] MEDS: WARFARIN SOD 3 MG TAB PO SCH (12:52)
[2017-12-26 14:50] VITALS: BP 126/53
[2017-12-26 19:17] VITALS: BP 123/57
[2017-12-26] MEDS: NYSTATIN 100,000 U/GM PWD 15GM TP SCH (19:26)
[2017-12-26] MEDS: MELATONIN 3 MG TAB PO SCH (21:10)
[2017-12-26] MEDS: SIMVASTATIN 40 MG TAB PO SCH (21:11)
[2017-12-26] MEDS: INSULIN HUM LISPRO 100 UN/ML 3 ML VIAL SUBQ PRN (21:12)
[2017-12-27] MEDS: LEVOTHYROXINE SOD 0.112 MG TAB PO SCH (05:19)
[2017-12-27 06:11] LABS: INR 3.2
[2017-12-27 08:21] VITALS: BP 107/49
[2017-12-27] MEDS: DOCUSATE SODIUM 100 MG CAP PO SCH (09:00)
[2017-12-27] MEDS: POLYETHYLENE GLYCOL 17 GM PKT PO SCH (09:00)
[2017-12-27] MEDS: SOLIFENACIN SUCCINATE 5 MG TAB PO SCH (09:10)
[2017-12-27] MEDS: ENOXAPARIN 40 MG/0.4ML SYR SC SCH (09:10)
[2017-12-27] MEDS: TRIMETH/SULFA DS 160-800MG TAB PO SCH (09:10)
[2017-12-27] MEDS: POTASSIUM CHL 10 MEQ TABCR PO SCH (09:10)
[2017-12-27] MEDS ORDERED: SULF1TAB24 PO (09:52)
[2017-12-27] MEDS ORDERED: WARF3TAB14 PO (09:52)
--- NOTE | 2017-12-27 10:10 | Hospitalist Depart ---
Discharge Summary Reason for Hosp/Final Diag: (1) Cellulitis of right toe Hospital Course & Plan: She developed a cellulitis and open wound on her great toe approximately 2 weeks ago. She had been on treatment with doxycycline and then converted to Augmentin and Bactrim on 12/11. Wound culture (12/07 [facility]) is positive for MRSA and Acinetobacter. The wound is now closed with minimal surrounding erythema. A plain radiograph was negative for osteo, but her CRP was elevated, but has been improving. Repeat blood cultures negative thus far. A CT scan was negative for osteomyelitis or abscess. An echocardiogram was rather unremarkable - no vegetations were seen. She was showing slow, but continual improvement. She will finish a course of oral Bactrim therapy as an outpatient. She will follow up with Dr. Wetzel. (2) Abnormal chest x-ray Hospital Course & Plan: She denies any cough, fever, or other respiratory symptoms. Her x-ray was read as a possible right-sided infiltrate, but it has not appreciably changed compared to previous studies. (3) History of pulmonary embolism Hospital Course & Plan: She is on chronic treatment with warfarin, but was supra-therapeutic at INR > 6 and received some vitamin K. We did initially hold her warfarin as well. She does have an IVC filter in place. Her INR is now in the upper therapeutic range at 3.20. She was restarted on her warfarin at lower dose (3mg daily) as she is on Bactrim for the next 7 days. She will need to follow INR closely with Dr. Wetzel and Dr. Ileana Lin PharmD. (4) Chronic edema Hospital Course & Plan: She is on chronic treatment with Lasix and spironolactone which were initially on hold due to borderline BP readings. She will resume her spironolactone, but we did continue stop the Lasix and potassium supplement. She will need to follow up closely with Dr. Wetzel regarding whether or not to restart.. (5) Type II diabetes mellitus Status: Chronic Hospital Course & Plan: She was on chronic treatment with glimepiride prior to admission. She had some hypoglycemia during admission and was otherwise under very good control while on diet alone. We have stopped her glimepiride. She will need to continue monitoring glucoses. (6) Overactive bladder Status: Chronic Hospital Course & Plan: She is on chronic treatment with Vesicare. (7) Decubitus ulcer of sacral area Status: Acute Hospital Course & Plan: PT wound care following sacral decubitus. Departure Weight (Pounds): 185 Result Diagram: 12/26/17 0553 12/26/17 0553 Item Value Date Time White Blood Count 9.2 k/uL 12/20/17 0546 Hemoglobin 11.3 g/dL L 12/20/17 0546 Hematocrit 33.8 % L 12/20/17 0546 Platelet Count 241 K/uL 12/20/17 0546 Sodium Level 136 mmol/L L 12/20/17 0546 Potassium Level 3.9 mmol/L 12/20/17 0546 Chloride Level 101 mmol/L 12/20/17 0546 Carbon Dioxide Level 28 mmol/L 12/20/17 0546 Blood Urea Nitrogen 21 mg/dl H 12/20/17 0546 Creatinine 1.00 mg/dl 12/20/17 0546 Glomerular Filtration Rate Calc 52.4 12/20/17 0546 Random Glucose 98 mg/dl 12/20/17 0546 Calcium Level 7.9 mg/dl L 12/20/17 0546 C-Reactive Protein 18.5 mg/dl H 12/20/17 0546 Lactate 1.1 mmol/L 12/20/17 1028 C-Reactive Protein 16.4 mg/dl H 12/21/17 0552 Prothrombin Time 18.9 seconds H 12/23/17 0527 Prothromb Time International Ratio 1.56 12/23/17 0527 Prothromb Time International Ratio 1.70 12/24/17 0533 Prothrombin Time 20.1 seconds H 12/24/17 0533 Prothrombin Time 25.0 seconds H 12/25/17 0530 Prothromb Time International Ratio 2.22 12/25/17 0530 Prothromb Time International Ratio 2.36 12/26/17 0553 Prothrombin Time 26.2 seconds H 12/26/17 0553 Prothrombin Time 33.5 seconds H 12/27/17 0543 Prothromb Time International Ratio 3.20 12/27/17 0543 Prothrombin Time 57.0 seconds H 12/20/17 0546 Prothromb Time International Ratio 6.22 *H 12/20/17 0546 Prothromb Time International Ratio 1.52 12/21/17 0552 Prothrombin Time 18.5 seconds H 12/21/1752 Prothrombin Time 17.6 seconds H 12/22/1748 Prothromb Time International Ratio 1.43 12/22/1748 [facility] *LIVE* [address] [place] [address] IRINEO DEUTSCH M.D., DIRECTOR OF LABORATORY SERVICES TY METCALF M.D., PATHOLOGIST RUN DATE: 12/26/17 Specimen Inquiry Report PAGE 1 RUN TIME: 1000 PATIENT: KEYAL PRITCHETT ACCT: [id number] LOC: MED U: [id number] AGE/SX: 87/F ROOM: [facility] RE12/19/[address]: BASILIO MENDOZA DO : 1930 BED: 275 DIS: STATUS: ADM IN TLOC: SPEC #: [id number] SUMAYA: 12/24/17 STATUS: RES REQ #: [id number] RECD: 12/24/[address]: CRISTOFER CORDOBA MD SOURCE: BLOOD ENTR: 12/24/17-[address]: BASILIO MENDOZA DO [facility]: TRENT WETZEL MD ORDERED: CULT BLOOD --- --------- Procedure Result Verified BLOOD CULTURE Preliminary 12/26/17-1000 NO GROWTH AFTER 2 DAYS, REINCUBATED [facility] *LIVE* [address] [place] [address] IRINEO DEUTSCH M.D., DIRECTOR OF LABORATORY SERVICES TY METCALF M.D., PATHOLOGIST RUN DATE: 12/26/17 Specimen Inquiry Report PAGE 1 RUN TIME: 1000 PATIENT: KEYLA PRITCHETT ACCT: [id number] LOC: MED U: [id number] AGE/SX: 87/F ROOM: 2275 RE12/19/[address]: BASILIO MENDOZA DO : 1930 BED: 275 DIS: STATUS: ADM IN TLOC: SPEC #: [id number] SUMAYA: 12/24/17 STATUS: RES REQ #: [id number] RECD: 12/24/[address] [facility] [address]: CRISTOFER CORDOBA MD SOURCE: BLOOD ENTR: 12/24/17 [facility] DR: BASILIO MENDOZA DO [facility]: TRENT WETZEL MD ORDERED: CULT BLOOD Procedure Result Verified BLOOD CULTURE Preliminary 12/26/17-999 NO GROWTH AFTER 2 DAYS, REINCUBATED Imaging PATIENT NAME: Keyla Pritchett : 1930 MR: [id number] V: [id number] EXAM DATE: ORDERING PHYSICIAN: HAYLEY BONNER TECHNOLOGIST: Location: [facility] Patient: Keyla Pritchett : 1930 Visit/Account:[id number] Date of Sevice: 12/25/2017 Examination: Computed tomography right foot without and with contrast HISTORY: Possible soft tissue abscess. Grade 2 abscess. TECHNIQUE: Transaxial computed tomography images are obtained of the right foot before and after the administration of 75 mL Isovue 370. Multiplanar reformatted images are graded coronal and sagittal planes. One of the following dose optimization techniques was utilized in the perf ormance of this exam: Automated exposure control; adjustment of the mA and/or kV according to the patient's size; or use of an iterative reconstruction technique. Specific details can be referenced in the facility's radiology CT exam operational policy. FINDINGS: There has been previous screw fixation of the medial malleolus of the distal tibia causing metal streak artifact in this region. There is circumferential subcutaneous edema about the ankle. No well-defined fluid collection is seen. This edema extends to the dorsum of the forefoot most pronounced along the lateral forefoot. No well-defined fluid collection is seen in this region. There is apparent skin ulceration along the medial margin of the distal great toe seen in different projections. No bone destruction or cortical irregularity seen to suggest the possibility of osteomyelitis. No well-defined fluid collection to suggest a great toe abscess. There is an apparent hallux valgus deformity. Correlate with physical exam. There is a hammertoe deformity of the second toe. Midfoot joint spaces are maintained. 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 There is diffuse atrophy of the intrinsic musculature of the foot compatible with chronic denervation change. IMPRESSION: 1. No evidence of right great toe abscess or bone destruction. 2. Soft tissue swelling circumferentially about the ankle and extending to the dorsal and lateral hindfoot. No fluid collection or abscess. 3. Atrophy of the intrinsic musculature of the foot consistent with chronic denervation changes. Report Dictated By: Andres Carlisle at 12/25/2017 11:48 AM Report E-Signed By: Andres Carlisle at 12/25/2017 12:03 PM WSN:[id number] PATIENT NAME: Keyla Pritchett : 1930 MR: [id number] V: [id number] EXAM DATE: [id number] ORDERING PHYSICIAN: BASILIO MENDOZA TECHNOLOGIST: Location: [facility] Patient: Keyla Pritchett : 1930 Visit/Account:[id number] Date of Sevice: 12/19/2017 FOOT 3 VIEW RIGHT Indication: Cellulitis Comparison: None Available Findings: No evidence of fracture, dislocation, or acute osseous abnormality of the right foot. The bones are diffusely osteopenic. No erosive changes are identified. Diffuse soft tissue swelling is noted over the dorsum of the foot overlying the metatarsals. There is a moderate to severe hallux valgus deformity with underlying degenerative change. Bone screws across the medial malleolus. IMPRESSION: 1. No erosive changes are seen to suggest underlying osteomyelitis. Moderate to severe soft tissue swelling is noted over the dorsum of the foot without underlying bony abnormality. Report Dictated By: Elliott Good at 12/19/2017 2:58 PM Report E-Signed By: Elliott Good at 12/19/2017 3:00 PM WSN:[id number] EKG PATIENT NAME: KEYLA PRITCHETT : [id number] MR: [id number] V: [id number] EXAM DATE: ORDERING PHYSICIAN: BRUCE BONNER TECHNOLOGIST: Test Reason : CHEST PAIN Blood Pressure : / mmHG Vent. Rate : 068 BPM Atrial Rate : 068 BPM P-R Int : 164 ms QRS Dur : 086 ms QT Int : 402 ms P-R-T Axes : 050 067 042 degrees QTc Int : 427 ms Normal sinus rhythm Normal ECG When compared with ECG of 09-NOV-2014 10:52, No significant change was found Confirmed by BRUCE LINK ([id number]) on 12/20/2017 1:35:07 PM Referred By: Confirmed By:BRUCE LINK Condition: Improved Discharge: Assisted Living PT/OT Follow Up For: PT Evaluation and Treat, OT Evaluation and Treat Follow-Up Labs: Finger Sticks (2-4 times a day), INR (on Saturday12/30/[address] Wetzel/Dr[address] Ileana Lin PharmD) Time Spent: > 30 min Discharge Instructions Home Meds Active Scripts Sulfamethoxazole/Trimethoprim (SULFAMETHOXAZOLE-TMP DS TABLET) 1 Each Tablet, 1 EACH PO BID for 7 Days, #14 TAB 0 Refills Prov:HAYLEY BONNER MD 12/27/17 Warfarin Sodium (WARFARIN SODIUM) 3 Mg Tablet, 3 MG PO QDAY@13 for 30 Days, #30 TAB 1 Refill Prov:HAYLEY BONNER MD 12/27/17 Calcium Carbonate (OYSTER SHELL CALCIUM) 500 Mg Tablet, 1000 MG PO DAILY, #180 T AB 3 Refills Prov:TRENT WETZEL MD 12/23/17 Spironolactone (SPIRONOLACTONE) 25 Mg Tablet, 0.5 TAB PO DAILY, #45 TAB 3 Refills Prov:MIKO PATTERSON MD 06/27/17 Diaper,Brief,Adult, Disposable (Depend Fit-Flex) 1 Each Each, EA EXT TID, #270 Depend underwear max ABS womens size large Prov:TRENT WETZEL MD 05/30/17 Acetaminophen (MAPAP) 325 Mg Tab, 650 MG PO BID PRN for PAIN OR FEVER 100 OR GREATER, #360 TAB 11 Refills Prov:TRENT WETZEL MD 04/16/17 Menthol (Cough Drops) 7.6 Mg Lozenge, 1 LOZENGE PO PRN, #1 BOX 0 Refills Prov:TRENT WETZEL MD 04/05/17 Docusate Sodium (COLACE) 100 Mg Capsule, 2 CAP PO BID, #360 CAPSULE 4 Refills Prov:TRENT WETZEL MD 12/21/16 Solifenacin Succinate (VESICARE) 10 Mg Tablet, 1 TAB PO QDAY, #90 TAB 1 Refill Prov:TRENT WETZEL MD 12/21/16 Simvastatin (SIMVASTATIN) 40 Mg Tablet, 40 MG PO HS, #90 TAB 3 Refills Prov:TRENT WETZEL MD 12/21/16 Levothyroxine Sodium (LEVOTHYROXINE SODIUM) 0.112 Mg Tab, 1 TAB PO QDAY, #90 TAB 4 Refills Prov:TRENT WETZEL MD 12/21/16 Blood Sugar Diagnostic (FREESTYLE LITE TEST STRIPS) 1 Each Strip, 1 EACH MC DAILY PRN for as directed, #1 BOX 4 Refills Check blood sugar as needed. Prov:TRENT WETZEL MD 12/21/16 Cholecalciferol (Vitamin D3) (VITAMIN D3) 1,000 Unit Tablet, 1 TAB PO DAILY, #90 TAB 4 Refills Prov:TRENT WETZEL MD 12/21/16 Aspirin (ASPIRIN EC) 81 Mg Tabec, 1 TAB PO QDAY, #90 TAB 4 Refills Prov:TRENT WETZEL MD 12/21/16 Polyethylene Glycol 3350 (MIRALAX) 17 Gm Powd.pack, 1 PACK PO PRN, #30 PACK 1 Refill Prov:TRENT WETZEL MD 12/21/16 Oxygen (OXYGEN) Inha, 2 L INH HS, #2 L Prov:TRENT WETZEL MD 11/10/15 Reported Medications Magnesium Hydroxide (MILK OF MAGNESIA) 400 Mg/5 Ml Oral.susp, 15-30 ML PO PRN for CONSTIPATION MDD 2 doses in 24 hrs, BOTTLE 12/19/17 Ondansetron (ONDANSETRON ODT) 4 Mg Tab.rapdis, 4 MG PO Q12H PRN for NAUSEA 12/19/17 Dextran 70/Hypromellose (ARTIFICIAL TEARS) 1 Each Droperette, 1 EACH OP TID Also PRN from dry eyes 12/19/17 Alendronate Sodium (ALENDRONATE SODIUM) 70 Mg/75 Ml Solution, 70 MG PO QWK, ML Give 70mg early every Saturday before breakfast and stay upright for 1/2hr. 12/19/17 Discontinued Reported Medications Guaifenesin (ROBAFEN) 100 Mg/5 Ml Liquid, 5 ML PO Q4H PRN for COUGH MDD 4 doses in 24hrs 12/19/17 Warfarin Sodium (WARFARIN SODIUM) 3 Mg Tablet, 1-1.5 TAB PO QDAY, TAB 4.5mg Sun, Mon, , Sat, , Sat 3mg Saturday12/19/17 Calcium Carbonate (CALCIUM CARBONATE) 500 Mg Tablet, 1500 MG PO Q2H PRN for HEARTBURN MDD 10 tabs in 24hrs 12/19/17 Discontinued Scripts Potassium Chloride (POTASSIUM CHLORIDE) 10 Meq Capsule.er, 2 CAP PO QDAY, #180 CAP 3 Refills Prov:TRENT WETZEL MD 10/10/17 Glimepiride (GLIMEPIRIDE) 4 Mg Tablet, 0.5 TAB PO QDAY, #45 TAB 4 Refills Prov:TRENT WETZEL MD 06/18/17 Furosemide (FUROSEMIDE) 40 Mg Tablet, 2 TAB PO DAILY, #90 TAB 4 Refills Prov:TRENT WETZEL MD 12/21/16 Follow up Referrals: Internal Medicine @ [facility] with TRENT WETZEL MD Diet: Diabetic Activity: As Tolerated, With Walker, No Exertion Special Instructions: Continue home oxygen. Follow up with Dr. Wetzel in next 5-10 days or sooner if any problems. Follow up with Dr. Wetzel's office for protime/INR on Saturday12/30/17. Copies to: TRENT WETZEL MD; ILEANA LIN PHARMD ; Venous Thromboembolism Antithrombotics Is Pt On Any Antithrombotics?: Yes [id number] Certification Face to Face Home Health Certification Institutional Provider conducted the [id number] encounter. Electronic Undersigning Physician Certifies Home Health. I certify that the patient has been under my care and that I had a [id number] encounter that meets the physician [id number]-[id number] encounter requirements with this patient. This patient is home-bound due to safety issues and continues to require assistance with ADL's. I certify that based on my findings, that PT/OT, Nursing, Aides are medically necessary: Date Face to Face Conducted: Dec 27, 2017 Problem Qualifiers (1) Decubitus ulcer of sacral area: Pressure injury stage: stage 3 Qualified Codes: L89.153 - Pressure ulcer of sacral region, stage 3 HAYLEY BONNER MD Dec 27, 2017 10:10
[2017-12-27] MEDS: WARFARIN SOD 3 MG TAB PO SCH (13:00)
== END 2017-12-27 13:50 | disposition home or self-care (01) | DRG 602 ==
LOC: MED 12:12
PROVIDERS: ADMIT Family Medicine; ATTEND Family Medicine
DX: L03.031 Cellulitis of right toe (principal); L89.153 Pressure ulcer of sacral region, stage 3; E11.9 Type 2 diabetes mellitus without complications; N32.81 Overactive bladder; I87.8 Other specified disorders of veins; R79.1 Abnormal coagulation profile; E03.9 Hypothyroidism, unspecified; R60.9 Edema, unspecified; Z79.01 Long term (current) use of anticoagulants; Z79.84 Long term (current) use of oral hypoglycemic drugs; Z86.711 Personal history of pulmonary embolism; Z86.718 Personal history of other venous thrombosis and embolism; Z90.710 Acquired absence of both cervix and uterus; Z95.828 Presence of other vascular implants and grafts; Z88.8 Allergy status to other drugs, medicaments and biological substances; Z86.14 Personal history of Methicillin resistant Staphylococcus aureus infection
CPT/HCPCS: 36415; 36416; 71046; 80202; 82040; 82247; 82310; 82374; 82435; 82565; 82947; 82948; 83605; 83880; 84075; 84132; 84155; 84295; 84450; 84460; 84520; 85025; 85379; 85610; 86140; 87040; 93005; 93306; 97161; 97162; 97165; J0295; J1650; J3370; J7030; J7040; J7050; Q9967

== ENCOUNTER → 2017-12-19 | Outpatient (CLI) | payer MEDICARE ==
[2014-11-16 15:46] VITALS: BMI 31.6
[~2017-12-19] MED LIST changes: +ALEN70SO PO; +CALC-630 PO; +DEXT1DRO15 OP; +GUAI-244 PO
[2017-12-19 11:15] LABS: PLATELET COUNT, AUTOMATED 294 K/uL (150-450)
[2017-12-19 11:22] LABS: INR 6.79
--- NOTE | 2017-12-19 13:01 | RADIOLOGY IMAGING REPORT ---
FACILITY: [facility] PATIENT NAME: Keyla Graves : 1930 MR: [id number] V: [id number] EXAM DATE: ORDERING PHYSICIAN: TRENT HERNÁNDEZ TECHNOLOGIST: [facility] [place] Patient: Keyla Graves : 1930 Visit/Account:[id number] Date of Sevice: 12/19/2017 ADDENDUM #1 Results were discussed with TRENT HERNÁNDEZ at 12/19/2017 1:02 PM. Report Dictated By: Elliott Good at 12/19/2017 1:02 PM Report E-Signed By: Elliott Good at 12/19/2017 1:02 PM ORIGINAL REPORT CHEST PA AND LAT INDICATION: dyspnea COMPARISON: November 17, 2014 FINDINGS: Heart size within normal limits. There is a hazy opacity present within the right upper lobe. Chronic interstitial changes are reiden tified at the lung bases. There is no pneumothorax or pleural effusion. IMPRESSION: 1. Hazy right upper lobe opacity concerning for infiltrate 2. Stable chronic interstitial changes at the lung bases Report Dictated By: Elliott Good at 12/19/2017 12:50 PM Report E-Signed By: Elliott Good at 12/19/2017 12:57 PM WSN:[email or web address]
== END ==
LOC: LAB 10:42
PROVIDERS: ATTEND Emergency Medicine
DX: R91.8 Other nonspecific abnormal finding of lung field (principal); L03.90 Cellulitis, unspecified; R06.00 Dyspnea, unspecified
CPT/HCPCS: 36415; 71046; 82310; 82374; 82435; 82565; 82947; 83880; 84132; 84295; 84520; 85025; 85379; 85610; 86140

== ENCOUNTER → 2017-12-24 | Outpatient (CLI) | payer MEDICARE ==
[2017-12-20 13:07] VITALS: BMI 31.8
[~2017-12-24] MED LIST changes: +ALEN70SO PO; +CALC-630 PO; +DEXT1DRO15 OP; +GUAI-244 PO
== END ==
LOC: ZZSPRING 00:21
PROVIDERS: ATTEND Pharmacist Pharmacotherapy
DX: I26.99 Other pulmonary embolism without acute cor pulmonale (principal)

== ENCOUNTER → 2017-12-30 | Outpatient (CLI) | payer MEDICARE ==
[2017-12-20 13:07] VITALS: BMI 31.8
[~2017-12-30] MED LIST changes: +GLIM1TAB25 PO; +SULF1TAB24 PO
[2017-12-30 13:52] LABS: INR 3.01
== END ==
LOC: LAB 10:33
PROVIDERS: ATTEND Emergency Medicine
DX: E11.9 Type 2 diabetes mellitus without complications (principal); Z79.01 Long term (current) use of anticoagulants
CPT/HCPCS: 36415; 82040; 82247; 82310; 82374; 82435; 82565; 82947; 84075; 84132; 84155; 84295; 84450; 84460; 84520; 85610

== ENCOUNTER → 2018-01-02 | Outpatient (CLI) | payer MEDICARE ==
[2017-12-20 13:07] VITALS: BMI 31.8
[~2018-01-02] MED LIST changes: +FLU180SY11 IM
[2018-01-02 10:41] LABS: PLATELET COUNT, AUTOMATED 480 K/uL (150-450)
== END ==
LOC: LAB 10:08
PROVIDERS: ATTEND Emergency Medicine
DX: D64.9 Anemia, unspecified (principal); E83.52 Hypercalcemia; L53.9 Erythematous condition, unspecified
CPT/HCPCS: 36415; 82040; 82247; 82310; 82374; 82435; 82565; 82607; 82746; 82947; 83540; 83550; 84075; 84132; 84155; 84295; 84450; 84460; 84520; 85025; 86140

== ENCOUNTER → 2018-01-07 | Outpatient (CLI) | payer MEDICARE ==
[2017-12-20 13:07] VITALS: BMI 31.8
[2018-01-07 08:31] LABS: INR 2.16
== END ==
LOC: ZZSPRING 01-06 15:45
PROVIDERS: ATTEND Pharmacist Pharmacotherapy
DX: Z51.81 Encounter for therapeutic drug level monitoring (principal); Z86.711 Personal history of pulmonary embolism; Z79.01 Long term (current) use of anticoagulants
CPT/HCPCS: 36415; 85610; 86140

== ENCOUNTER → 2018-01-14 | Outpatient (CLI) | payer MEDICARE ==
[2017-12-20 13:07] VITALS: BMI 31.8
== END ==
LOC: ZZSPRING 02:43
PROVIDERS: ATTEND Emergency Medicine
DX: R09.02 Hypoxemia (principal); L03.116 Cellulitis of left lower limb; L03.115 Cellulitis of right lower limb
CPT/HCPCS: 36415; 82040; 82247; 82310; 82374; 82435; 82565; 82607; 82746; 82947; 83540; 83550; 84075; 84132; 84155; 84295; 84450; 84460; 84520; 85027

== ENCOUNTER → 2018-01-14 | Outpatient (CLI) | payer MEDICARE ==
[2017-12-20 13:07] VITALS: BMI 31.8
[2018-01-14 08:20] LABS: INR 2.48
== END ==
LOC: ZZSPRING 02:43
PROVIDERS: ATTEND Pharmacist Pharmacotherapy
DX: I26.99 Other pulmonary embolism without acute cor pulmonale (principal)
CPT/HCPCS: 83970; 85610

== ENCOUNTER → 2018-01-14 | Outpatient (CLI) | payer MEDICARE ==
[2017-12-20 13:07] VITALS: BMI 31.8
--- NOTE | 2018-01-14 11:41 | RADIOLOGY IMAGING REPORT ---
FACILITY: [facility] [place] PATIENT NAME: Keyla Graves : 1930 MR: [id number] V: [id number] EXAM DATE: ORDERING PHYSICIAN: TRENT HERNÁNDEZ TECHNOLOGIST: Location: [facility] [place] Patient: Keyla Graves : 1930 Visit/Account:[id number] Date of Sevice: 01/14/2018 Exam type: CHEST PA AND LAT History: Abnormal chest X ray on 12/19 Comparison: 12/19/2017. Findings: There is mild chronic peribronchial thickening bilaterally. There is no evidence of focal infiltrate s, pleural effusions or pulmonary edema. The cardiac silhouette appears stable. There are moderate spondylotic changes of the thoracic spine IMPRESSION: 1. Chronic peribronchial thickening bilaterally although no focal infiltrates identified Report Dictated By: Riri Bright MD at 01/14/2018 11:34 AM Report E-Signed By: Riri Bright MD at 01/14/2018 11:35 AM WSN:[id number]
== END ==
LOC: RAD 09:54
PROVIDERS: ATTEND Family Medicine
DX: R93.89 Abnormal findings on diagnostic imaging of other specified body structures (principal)
CPT/HCPCS: 71046

== ENCOUNTER → 2018-01-22 | Outpatient (REF) | payer MEDICARE ==
[2017-12-20 13:07] VITALS: BMI 31.8
== END ==
LOC: ZZSPRING 16:30
PROVIDERS: ATTEND Emergency Medicine
DX: R09.02 Hypoxemia (principal); L03.115 Cellulitis of right lower limb; L03.116 Cellulitis of left lower limb
CPT/HCPCS: 82274

== ENCOUNTER → 2018-01-28 | Outpatient (CLI) | payer MEDICARE ==
[2017-12-20 13:07] VITALS: BMI 31.8
[2018-01-28 08:09] LABS: INR 2.69
== END ==
LOC: ZZSPRING 01:37
PROVIDERS: ATTEND Pharmacist Pharmacotherapy
DX: Z51.81 Encounter for therapeutic drug level monitoring (principal); Z79.01 Long term (current) use of anticoagulants; Z86.711 Personal history of pulmonary embolism
CPT/HCPCS: 36415; 85610

== ENCOUNTER 2018-02-14 14:38 | Emergency (ER) | payer MEDICARE ==
[2017-12-20 13:07] VITALS: BMI 31.8
--- NOTE | 2018-02-14 15:04 | ER Report ---
History and Physical Time Seen By MD: 15:05 Hx. of Stated Complaint: PATIENT REPORTS THAT SHE WAS SENT OVER BY HER PRIMARY CARE PROVIDER FOR A CONCERN ABOUT AN INFECTION IN HER LEG. PATIENT REPORTS THAT HER LEGS HAVE BEEN LIKE THIS FOR YEARS HPI/ROS CHIEF COMPLAINT: crackles in lungs, leg changes HISTORY OF PRESENT ILLNESS: Patient is an 87 year old female that came to the ED from [facility]. Patient states a new nurse told her her legs were a lot worse but patient states the nurse has never seen her legs before. Patient feels that her legs are unchanged. Patient also states the nurses heard crackles in the bases of her lungs. Patient states she was in the hospital about one week ago and has been on 2 L NC since that time. Patient does not feel like she is ill. REVIEW OF SYSTEMS: General: No fevers/chills Respiratory: No cough, no dyspnea. Cardiovascular: No chest pain, no palpitations. Gastrointestinal: No vomiting, no abdominal pain. Musculoskeletal: No back pain. Allergies: Coded Allergies: NSAIDS (Non-Steroidal Anti-Inflamma (Verified Allergy, Unknown, 10/10/15) codeine (Verified Allergy, Unknown, 10/10/15) tramadol (Verified Adverse Reaction, Severe, Severe nausea , 04/02/17) Home Meds Active Scripts Aspirin (ASPIRIN EC) 81 Mg Tabec, 1 TAB PO QDAY, #90 TAB 4 Refills Prov:TRENT HERNÁNDEZ MD 02/12/18 Spironolactone (SPIRONOLACTONE) 25 Mg Tablet, 1 TAB PO DAILY, #30 TAB 3 Refills Prov:TRENT HERNÁNDEZ MD 01/28/18 Docusate Sodium (COLACE) 100 Mg Capsule, 2 CAP PO BID, #360 CAPSULE 3 Refills Prov:TRENT HERNÁNDEZ MD 01/17/18 Warfarin Sodium (WARFARIN SODIUM) 3 Mg Tablet, 3 MG PO QDAY@13 for 30 Days, #90 TAB 3 Refills Prov:TRENT HERNÁNDEZ MD 01/02/18 Glimepiride (GLIMEPIRIDE) 1 Mg Tablet, 1 MG PO QDAY, #90 TAB 3 Refills Prov:TRENT HERNÁNDEZ MD 12/31/17 Calcium Carbonate (OYSTER SHELL CALCIUM) 500 Mg Tablet, 1000 MG PO DAILY, #180 TAB 3 Refills Prov:TRENT HERNÁNDEZ MD 12/23/17 Diaper,Brief,Adult, Disposable (Depend Fit-Flex) 1 Each Each, EA EXT TID, #270 Depend underwear max ABS womens size large Prov:TRENT HERNÁNDEZ MD 05/30/17 Acetaminophen (MAPAP) 325 Mg Tab, 650 MG PO BID PRN for PAIN OR FEVER 100 OR GREATER, #360 TAB 11 Refills Prov:TRENT HERNÁNDEZ MD 04/16/17 Menthol (Cough Drops) 7.6 Mg Lozenge, 1 LOZENGE PO PRN, #1 BOX 0 Refills Prov:TRENT HERNÁNDEZ MD 04/05/17 Solifenacin Succinate (VESICARE) 10 Mg Tablet, 1 TAB PO QDAY, #90 TAB 1 Refill Prov:TRENT HERNÁNDEZ MD 12/21/16 Simvastatin (SIMVASTATIN) 40 Mg Tablet, 40 MG PO HS, #90 TAB 3 Refills Prov:TRENT HERNÁNDEZ MD 12/21/16 Levothyroxine Sodium (LEVOTHYROXINE SODIUM) 0.112 Mg Tab, 1 TAB PO QDAY, #90 TAB 4 Refills Prov:TRENT HERNÁNDEZ MD 12/21/16 Blood Sugar Diagnostic (FREESTYLE LITE TEST STRIPS) 1 Each Strip, 1 EACH MC DAILY PRN for as directed, #1 BOX 4 Refills Check blood sugar as needed. Prov:TRENT HERNÁNDEZ MD 12/21/16 Cholecalciferol (Vitamin D3) (VITAMIN D3) 1,000 Unit Tablet, 1 TAB PO DAILY, #90 TAB 4 Refills Prov:TRENT HERNÁNDEZ MD 12/21/16 Polyethylene Glycol 3350 (MIRALAX) 17 Gm Powd.pack, 1 PACK PO PRN, #30 PACK 1 Refill Prov:TRENT HERNÁNDEZ MD 12/21/16 Oxygen (OXYGEN) Inha, 2 L INH HS, #2 L Prov:TRENT HERNÁNDEZ MD 11/10/15 Reported Medications Magnesium Hydroxide (MILK OF MAGNESIA) 400 Mg/5 Ml Oral.susp, 15-30 ML PO PRN for CONSTIPATION MDD 2 doses in 24 hrs, BOTTLE 12/19/17 Ondansetron (ONDANSETRON ODT) 4 Mg Tab.rapdis, 4 MG PO Q12H PRN for NAUSEA 12/19/17 Dextran 70/Hypromellose (ARTIFICIAL TEARS) 1 Each Droperette, 1 EACH OP TID Also PRN from dry eyes 12/19/17 Alendronate Sodium (ALENDRONATE SODIUM) 70 Mg/75 Ml Solution, 70 MG PO QWK, ML Give 70mg early every Saturday before breakfast and stay upright for 1/2hr. 12/19/17 Past Medical/Surgical History Patient past medical history of neuropathy, edema, internal carotid artery aneurysm, DVT, hypertension, hypercholesterolemia, pulmonary embolism, constipation, arthritis, diabetes type II, and hypothyroidism. Patient has a surgical history of appendectomy, hysterectomy, laminectomy, right ankle leg, and surgeries on each arm. Hx Smoking: No Smoking Status: Never Smoker Hx Substance Use Disorder: No Hx Alcohol Use: No Physical Exam General Appearance: The patient is alert, has no immediate need for airway protection and no current signs of toxicity. Respiratory: Chest is non tender, lungs crackles bilaterally in the bases Cardiac: regular rate and rhythm Gastrointestinal: Abdomen is soft and non tender, no masses, bowel sounds normal. Lower extremities: 1+ pitting edema, pedal pulses palpable [DIFFERENTIAL DIAGNOSIS: After history and physical exam differential diagnosis was considered for pneumonia, bronchitis, congestive heart failure. Medical Decision Making Data Points Result Diagram: 02/14/18 1537 02/14/18 1537 Laboratory Hematology Test 02/14/18 15:37 Red Blood Count 4.46 M/uL (4.17-5.56) Mean Corpuscular Volume 90.1 fL (80.0-96.0) Mean Corpuscular Hemoglobin 30.2 pg (26.0-33.0) Mean Corpuscular Hemoglobin Concent 33.5 g/dL (32.0-36.0) Red Cell Distribution Width 14.5 % (11.5-14.5) Mean Platelet Volume 7.9 fL (7.2-11.1) Neutrophils (%) (Auto) 62.8 % (39.4-72.5) Lymphocytes (%) (Auto) 22.9 % (17.6-49.6) Monocytes (%) (Auto) 9.1 % (4.1-12.4) Eosinophils (%) (Auto) 4.0 % (0.4-6.7) Basophils (%) (Auto) 1.2 % (0.3-1.4) Nucleated RBC Relative Count (auto) 0.0 /100WBC Neutrophils # (Auto) 6.8 K/uL (2.0-7.4) Lymphocytes # (Auto) 2.5 K/uL (1.3-3.6) Monocytes # (Auto) 1.0 K/uL (0.3-1.0) Eosinophils # (Auto) 0.4 K/uL (0.0-0.5) Basophils # (Auto) 0.1 K/uL (0.0-0.1) Nucleated RBC Absolute Count (auto) 0.01 K/uL Sodium Level 137 mmol/L (137-145) Potassium Level 4.4 mmol/L (3.5-5.0) Chloride Level 104 mmol/L (98-107) Carbon Dioxide Level 26 mmol/L (22-31) Blood Urea Nitrogen 24 mg/dl (7-18) Creatinine 0.90 mg/dl (0.52-1.04) Glomerular Filtration Rate Calc 59.2 Random Glucose 135 mg/dl (75-110) Calcium Level 9.7 mg/dl (8.4-10.2) Total Bilirubin 0.2 mg/dl (0.2-1.3) Aspartate Amino Transf (AST/SGOT) 20 U/L (0-35) Alanine Aminotransferase (ALT/SGPT) 14 U/L (0-56) Alkaline Phosphatase 119 U/L (0-126) B-Type Natriuretic Peptide 123 pg/ml (0-100) Total Protein 7.1 g/dl (6.3-8.2) Albumin 3.7 g/dl (3.5-5.0) Chemistry Test 02/14/18 15:37 White Blood Count 10.9 k/uL (4.5-11.0) Red Blood Count 4.46 M/uL (4.17-5.56) Hemoglobin 13.5 g/dL (12.0-16.0) Hematocrit 40.2 % (34.0-47.0) Mean Corpuscular Volume 90.1 fL (80.0-96.0) Mean Corpuscular Hemoglobin 30.2 pg (26.0-33.0) Mean Corpuscular Hemoglobin Concent 33.5 g/dL (32.0-36.0) Red Cell Distribution Width 14.5 % (11.5-14.5) Platelet Count 271 K/uL (150-450) Mean Platelet Volume 7.9 fL (7.2-11.1) Neutrophils (%) (Auto) 62.8 % (39.4-72.5) Lymphocytes (%) (Auto) 22.9 % (17.6-49.6) Monocytes (%) (Auto) 9.1 % (4.1-12.4) Eosinophils (%) (Auto) 4.0 % (0.4-6.7) Basophils (%) (Auto) 1.2 % (0.3-1.4) Nucleated RBC Relative Count (auto) 0.0 /100WBC Neutrophils # (Auto) 6.8 K/uL (2.0-7.4) Lymphocytes # (Auto) 2.5 K/uL (1.3-3.6) Monocytes # (Auto) 1.0 K/uL (0.3-1.0) Eosinophils # (Auto) 0.4 K/uL (0.0-0.5) Basophils # (Auto) 0.1 K/uL (0.0-0.1) Nucleated RBC Absolute Count (auto) 0.01 K/uL Glomerular Filtration Rate Calc 59.2 Calcium Level 9.7 mg/dl (8.4-10.2) Total Bilirubin 0.2 mg/dl (0.2-1.3) Aspartate Amino Transf (AST/SGOT) 20 U/L (0-35) Alanine Aminotransferase (ALT/SGPT) 14 U/L (0-56) Alkaline Phosphatase 119 U/L (0-126) B-Type Natriuretic Peptide 123 pg/ml (0-100) Total Protein 7.1 g/dl (6.3-8.2) Albumin 3.7 g/dl (3.5-5.0) EKG/Imaging Imaging EXAMINATION: Chest radiographs 2 views HISTORY: Crackles in lungs. COMPARISON: Chest radiographs from 12/19/2017 and 01/14/2018. FINDINGS: PA and lateral views of the chest are submitted. Lines/tubes: None. Lungs/pleura: There are a few coarse reticular opacities peripherally at the lung bases which are similar to previous exams. No focal consolidation or pleural effusion. Heart: Negative. Mediastinum: Atherosclerotic calcifications of the aorta. Bony structures/body wall: Negative. Visualized upper abdomen: An IVC filter is visualized on the lateral image. IMPRESSION: 1. Coarse reticular opacities at the lung bases are similar to previous exams and are suspicious for chronic fibrosis. 2. No radiographic evidence of acute cardiopulmonary disease. Report Dictated By: Renetta Banegas MD at 02/14/2018 4:01 PM Report E-Signed By: Renetta Banegas MD at 02/14/2018 4:05 PM ED Course/Re-evaluation ED Course Patient was brought from [facility] via their bus. Patient was placed in a room. History and physical was obtained. Differential diagnoses were considered. Upon examination, patient lungs were found to have crackles bi laterally in the bases. Patient lower legs were 1+ edema. Patient stated her legs were unchanged. Venipuncture was performed and a CMP, CBC, and BNP was obtained. Lab work was unremarkable. Chest x-ray was obtain. Opacities were visualized at the bases of the lungs but they are similar to previous exams. Results were discussed with the patient. Patient would like to go back to [facility]. Patient warnings signs were given and discharged back to [facility]. Decision to Disposition Date: Feb 14, 2018 Decision to Disposition Time: 16:30 Depart Departure Impression: Primary Impression: Dehydration Condition: Improved Disposition: HOME OR SELF-CARE Referrals: JOLYNN LIN PHARMD (PCP) Patient Instructions: Dehydration (ED) Additional Instructions: Try increasing your fluid intake. Get plenty of rest. Continue with normal activities. Follow up with your Primary care Provider in the next week. Return to the ER if condition worsens. BRET MONTALVO Feb 14, 2018 15:04
[2018-02-14 15:46] LABS: PLATELET COUNT, AUTOMATED 271 K/uL (150-450)
--- NOTE | 2018-02-14 16:09 | RADIOLOGY IMAGING REPORT ---
FACILITY: [facility] PATIENT NAME: Keyla Graves : 1930 MR: [id number] V: [id number] EXAM DATE: ORDERING PHYSICIAN: BRET MONTALVO TECHNOLOGIST: Location: [facility] Patient: Keyla Graves : 1930 Visit/Account:[id number] Date of Sevice: 02/14/2018 EXAMINATION: Chest radiographs 2 views HISTORY: Crackles in lungs. COMPARISON: Chest radiographs from 12/19/2017 and 01/14/2018. FINDINGS: PA and lateral views of the chest are submitted. Lines/tubes: None. Lungs/pleura: There are a few coarse reticular opacities peripherally at the lung bases which are si milar to previous exams. No focal consolidation or pleural effusion. Heart: Negative. Mediastinum: Atherosclerotic calcifications of the aorta. Bony structures/body wall: Negative. Visualized upper abdomen: An IVC filter is visualized on the lateral image. IMPRESSION: 1. Coarse reticular opacities at the lung bases are similar to previous exams and are suspicious for chronic fibrosis. 2. No radiographic evidence of acute cardiopulmonary disease. Report Dictated By: Renetta Banegas MD at 02/14/2018 4:01 PM Report E-Signed By: Renetta Banegas MD at 02/14/2018 4:05 PM WSN:[id number]
[2018-02-17] MEDS ORDERED: ALEN70TA2 PO (11:12)
== END 2018-02-14 16:40 | disposition home or self-care (01) ==
LOC: ER 15:07
DX: E86.0 Dehydration (principal); R60.0 Localized edema
CPT/HCPCS: 71046; 82040; 82247; 82310; 82374; 82435; 82565; 82947; 83880; 84075; 84132; 84155; 84295; 84450; 84460; 84520; 85025; 99283

== ENCOUNTER → 2018-02-25 | Outpatient (CLI) | payer MEDICARE ==
[2017-12-20 13:07] VITALS: BMI 31.8
[~2018-02-25] MED LIST changes: +ALEN70TA2 PO
[2018-02-25 08:29] LABS: INR 1.51
== END ==
LOC: ZZSPRING 01:22
PROVIDERS: ATTEND Pharmacist Pharmacotherapy
DX: Z51.81 Encounter for therapeutic drug level monitoring (principal); Z79.01 Long term (current) use of anticoagulants; Z86.711 Personal history of pulmonary embolism
CPT/HCPCS: 36415; 85610

== ENCOUNTER → 2018-03-20 | Outpatient (CLI) | payer MEDICARE ==
[2017-12-20 13:07] VITALS: BMI 31.8
[~2018-03-20] MED LIST changes: +CIPR-214 PO; +LACT237L63 PO
[2018-03-20 08:21] LABS: INR 3.89
== END ==
LOC: ZZSPRING 01:10
PROVIDERS: ATTEND Pharmacist Pharmacotherapy
DX: Z86.711 Personal history of pulmonary embolism (principal)
CPT/HCPCS: 36415; 85610

== ENCOUNTER → 2018-03-25 | Outpatient (CLI) | payer MEDICARE ==
[2017-12-20 13:07] VITALS: BMI 31.8
[~2018-03-25] MED LIST changes: +BARIUM SULFATE 176 GM BTL PO ONE; +BARIUM SULFATE 340 GM POWD ONE; +CARB15DR95 OP
--- NOTE | 2018-03-25 16:00 | RADIOLOGY IMAGING REPORT ---
[place] [facility] [place] NAME: Keyla Graves : 1930 MR: [id number] V: [id number] EXAM DATE: ORDERING PHYSICIAN: TRENT HERNÁNDEZ TECHNOLOGIST: Location: [facility] [place] Patient: Keyla Graves : 1930 Visit/Account:[id number] Date of Sevice: 03/25/2018 Exam type: ESOPHAGRAM History: Dysphasia Comparison: None. Findings: Single contrast esophagram was performed with thin barium only. The patient was unable to stand and had difficulty laying on the table. The patient drank thin barium through a straw while laying in th e right lateral decubitus position. 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 There also appear to be subtle indentations along the posterior wall the upper thoracic esophagus likely related to adjacent anterior osteophytes with in the thoracic spine. There is a small hiatal hernia with mild narrowing at the lower esophageal sp hincter. There appear to be spontaneous retrograde reflux of barium from the midesophagus into the u pper esophagus. No mucosal erosions were identified. The dose area product was 262.23 micro-Newman pe r meter squared IMPRESSION: 1. Study was limited due to the patient's inability to stand and difficulty laying on the fluoroscop y table. 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 There also appear to be subtle indentations along the posterior wall the upper thoracic esophagus likely re lated to adjacent anterior osteophytes within the thoracic spine Small hiatal hernia with mild narrowing at the lower esophageal sphincter There appear to be spontaneous retrograde reflux of barium from the midesophagus into the upper esoph tobin Report Dictated By: Riri Bright MD at 03/25/2018 3:52 PM Report E-Signed By: Riri Bright MD at 03/25/2018 3:56 PM WSN:[id number]
== END ==
LOC: RAD 03-17 03:54
PROVIDERS: ATTEND Emergency Medicine
DX: K44.9 Diaphragmatic hernia without obstruction or gangrene (principal); R13.10 Dysphagia, unspecified; K21.9 Gastro-esophageal reflux disease without esophagitis
CPT/HCPCS: 74220

== ENCOUNTER → 2018-04-01 | Outpatient (CLI) | payer MEDICARE ==
[2017-12-20 13:07] VITALS: BMI 31.8
[~2018-04-01] MED LIST changes: -ALEN70TA2 PO; +ALEN70TA46 PO; -BARIUM SULFATE 176 GM BTL PO ONE; -BARIUM SULFATE 340 GM POWD ONE
[2018-04-01 08:47] LABS: INR 2.03
== END ==
LOC: ZZSPRING 00:39
PROVIDERS: ATTEND Pharmacist Pharmacotherapy
DX: Z86.711 Personal history of pulmonary embolism (principal)
CPT/HCPCS: 36415; 85610

== ENCOUNTER → 2018-04-09 | Outpatient (CLI) | payer MEDICARE ==
[2017-12-20 13:07] VITALS: BMI 31.8
== END ==
LOC: LAB 10:13
PROVIDERS: ATTEND Surgery
DX: E11.9 Type 2 diabetes mellitus without complications (principal)
CPT/HCPCS: 36415; 83036

== ENCOUNTER → 2018-04-22 | Outpatient (CLI) | payer MEDICARE ==
[2017-12-20 13:07] VITALS: BMI 31.8
[2018-04-22 09:02] LABS: INR 2.48
== END ==
LOC: ZZSPRING 01:06
PROVIDERS: ATTEND Pharmacist Pharmacotherapy
DX: I82.409 Acute embolism and thrombosis of unspecified deep veins of unspecified lower extremity (principal)
CPT/HCPCS: 36415; 85610

== ENCOUNTER → 2018-05-06 | Outpatient (CLI) | payer MEDICARE ==
[2017-12-20 13:07] VITALS: BMI 31.8
[2018-05-06 08:41] LABS: INR 4.28
== END ==
LOC: ZZSPRING 01:15
PROVIDERS: ATTEND Pharmacist Pharmacotherapy
DX: I82.402 Acute embolism and thrombosis of unspecified deep veins of left lower extremity (principal); Z86.711 Personal history of pulmonary embolism
CPT/HCPCS: 36415; 85610

== ENCOUNTER → 2018-05-08 | Outpatient (CLI) | payer MEDICARE ==
[2017-12-20 13:07] VITALS: BMI 31.8
[~2018-05-08] MED LIST changes: +CALC1TAB24 PO; +DOCU100T13 PO
[2018-05-08 14:46] LABS: INR 2.68
== END ==
LOC: LAB 14:13
PROVIDERS: ATTEND Pharmacist Pharmacotherapy
DX: I82.409 Acute embolism and thrombosis of unspecified deep veins of unspecified lower extremity (principal); Z86.711 Personal history of pulmonary embolism
CPT/HCPCS: 36415; 85610

== ENCOUNTER → 2018-05-15 | Outpatient (CLI) | payer MEDICARE ==
[2017-12-20 13:07] VITALS: BMI 31.8
[~2018-05-15] MED LIST changes: +PANT40TA65 PO
[2018-05-15 13:45] LABS: INR 1.21
== END ==
LOC: LAB 12:49
PROVIDERS: ATTEND Surgery
DX: Z51.81 Encounter for therapeutic drug level monitoring (principal); Z86.711 Personal history of pulmonary embolism; Z79.01 Long term (current) use of anticoagulants
CPT/HCPCS: 36415; 85610

== ENCOUNTER 2018-05-16 02:00 | Day surgery (SDC) | payer MEDICARE ==
[2017-12-20 13:07] VITALS: Ht 162.6 cm; Wt 70.8 kg
[2018-05-16] VITALS (8 sets, daily range): BP systolic 94–133; BP diastolic 47–64
[~2018-05-16] VITALS: Ht 162.6 cm; Wt 70.8 kg
[~2018-05-16 02:00] MED LIST changes: -PANT40TA65 PO
[2018-05-16] MEDS ORDERED: NORMOSOL R SOLN(*) 1000 ML BAG 1,000 ML IV PRN (08:40)
[2018-05-16] MEDS ORDERED: GLYCOPYRROLATE 0.2MG/ML 1 ML INJ ONE (08:46)
[2018-05-16] MEDS ORDERED: KETAMINE HCL 500 MG/10 ML VIAL ONE (08:46)
[2018-05-16] MEDS ORDERED: PROPOFOL EMUL(*) 10MG/ML 20 ML 40 ML ONE (08:46)
[2018-05-16] MEDS ORDERED: LIDOCAINE/SOD BICARB 8.4% SYR ID ONE (09:10)
[2018-05-16] MEDS ORDERED: MIDAZOLAM 2 MG/2 ML VIAL IVP PRN (09:15)
--- NOTE | 2018-05-16 10:04 | NUR ---
4242 SBAR REPORT WAS RECEIVED FROM DR. LANDRUM AND JESES MIJARES. PATIENT IS IN A SEMIFOWLERS POSITION. SHE IS ON 3 LITERS NASAL CANNULA. LUNGS ARE DIMINISHED IN THE BASES. SHE IS COUGHING FREQUENTLY. BOWEL SOUNDS ARE ACTIVE. SHE HAS SWELLING IN HER LOWER LEGS AND BRUISING ON B. ARMS. SHE DENIES ANY PAIN OR NAUSEA AT THIS TIME. 1005 PATIENT IS STILL COUGHING FREQUENTLY.
--- NOTE | 2018-05-16 10:10 | NUR ---
1009 PATIENT BEGAN DRINKING WATER
[2018-05-16] MEDS ORDERED: PANT40TA65 PO (10:12)
--- NOTE | 2018-05-16 10:14 | Short(Outpt) Discharge Summary ---
Discharge Summary Reason for Hosp/Final Diag: (1) Dysphagia Hospital Course & Plan: pt presented for egd. she tolerated the procedure adequately. path pending. pt will be discharged when criteria met. Discharge Instructions Home Meds Active Scripts Pantoprazole Sodium (PANTOPRAZOLE SODIUM) 40 Mg Tablet.dr, 1 TAB PO DAILY, #60 CAP 1 Refill Prov:CAIN PADILLA 05/16/18 Sulfamethoxazole/Trimet 800-160 Mg Tab (BACTRIM DS TABLET) 1 Each Tablet, 1 TAB PO Q12H, #14 TAB Prov:TRENT HERNÁNDEZ MD 05/06/18 Warfarin Sodium (WARFARIN SODIUM) 3 Mg Tablet, 3 MG PO QDAY for 30 Days, #30 TAB 5 Refills Prov:JOLYNN LIN PHARMD 03/28/18 Alendronate Sodium (ALENDRONATE SODIUM) 70 Mg Tablet, 1 TAB PO QWEEK for 90 Days, #12 TAB 3 Refills Give dose early every Saturday morning before breakfast, and remain upright for half an hour. Prov:TRENT HERNÁNDEZ MD 02/17/18 Aspirin (ASPIRIN EC) 81 Mg Tabec, 1 TAB PO QDAY, #90 TAB 4 Refills Prov:TRENT HERNÁNDEZ MD 02/12/18 Glimepiride (GLIMEPIRIDE) 1 Mg Tablet, 1 MG PO QDAY, #90 TAB 3 Refills Prov:TRENT HERNÁNDEZ MD 12/31/17 Calcium Carbonate (OYSTER SHELL CALCIUM) 500 Mg Tablet, 1000 MG PO DAILY, #180 TAB 3 Refills Prov:TRENT HERNÁNDEZ MD 12/23/17 Diaper,Brief,Adult, Disposable (Depend Fit-Flex) 1 Each Each, EA EXT TID, #270 Depend underwear max ABS womens size large Prov:TRENT HERNÁNDEZ MD 05/30/17 Acetaminophen (MAPAP) 325 Mg Tab, 650 MG PO BID PRN for PAIN OR FEVER 100 OR GREATER, #360 TAB 11 Refills Prov:TRENT HERNÁNDEZ MD 04/16/17 Solifenacin Succinate (VESICARE) 10 Mg Tablet, 1 TAB PO QDAY, #90 TAB 1 Refill Prov:TRENT HERNÁNDEZ MD 12/21/16 Simvastatin (SIMVASTATIN) 40 Mg Tablet, 40 MG PO HS, #90 TAB 3 Refills Prov:TRENT HERNÁNDEZ MD 12/21/16 Levothyroxine Sodium (LEVOTHYROXINE SODIUM) 0.112 Mg Tab, 1 TAB PO QDAY, #90 TAB 4 Refills Prov:TRENT HERNÁNDEZ MD 12/21/16 Blood Sugar Diagnostic (FREESTYLE LITE TEST STRIPS) 1 Each Strip, 1 EACH MC DAILY PRN for as directed, #1 BOX 4 Refills Check blood sugar as needed. Prov:TRENT HERNÁNDEZ MD 12/21/16 Cholecalciferol (Vitamin D3) (VITAMIN D3) 1,000 Unit Tablet, 1 TAB PO DAILY, #90 TAB 4 Refills Prov:TRENT HERNÁNDEZ MD 12/21/16 Oxygen (OXYGEN) Inha, 2 L INH HS, #2 L Prov:TRENT HERNÁNDEZ MD 11/10/15 Reported Medications Spironolactone (SPIRONOLACTONE) 25 Mg Tablet, 25 MG PO QDAY, TAB 05/09/18 Docusate Sodium (DOCUSATE SODIUM) 100 Mg Tablet, 2 TAB PO BID 05/09/18 Calcium Carbonate/Mag Hydrox (ANTACID CHEWABLE TABLET) 1 Each Tab.chew, 750 MG PO PRN, TAB.CHEW 05/09/18 Ondansetron 4 Mg Odt (ONDANSETRON 4 MG ODT) 4 Mg Tab.rapdis, 4 MG PO Q12H PRN for NAUSEA 12/19/17 Dextran 70/Hypromellose (ARTIFICIAL TEARS) 1 Each Droperette, 1 EACH OP TID Also PRN from dry eyes 12/19/17 Discontinued Scripts Ciprofloxacin 500 Mg Tab (CIPROFLOXACIN 500 MG TAB) 500 Mg Tablet, 500 MG PO Q12H, #10 TAB 0 Refills Prov:TRENT HERNÁNDEZ MD 03/05/18 Diet: Regular Activity: As Tolerated Special Instructions: we will call you in 10 days with biopsy results. CAIN PADILLA May 16, 2018 10:14
[2018-05-16] MEDS ORDERED: LABETALOL HCL 25 MG/5 ML SYRINGE ONE (10:17)
[2018-05-16] MEDS ORDERED: METOPROLOL TART 5 MG/5 ML VIAL ONE (10:17)
--- NOTE | 2018-05-16 10:34 | NUR ---
1025 PATIENT STATES SHE WAS COLD. WARM BLANKETS WERE APPLIED 1031 PATIENT BEGAN EATING PUDDING AND IS TOLERATING THIS WELL
--- NOTE | 2018-05-16 11:45 | NUR ---
1145 CALLED REPORT TO NURSE KALEN AT [facility]: FINDINGS, PLAN, POST-OP ACTIONS, AND NEW PRESCRIPTION. ALL QUESTIONS ANSWERED.
--- NOTE | 2018-05-16 11:54 | NUR ---
1110 BEGAN DOING ORTHOSTATICS WITH PATIENT. SHE DENIES ANY DIZZINESS OR LIGHTHEADEDNESS 1111 IV WAS SALINE LOCKED. BEGAN HELPING PATIENT GET DRESSED WHILE SHE WAS SITTING 1124 PATIENT WAS DRESSED AND STOOD FOR ORTHOSTATICS. SHE WAS ABLE TO STAND WITH ASSISTANCE AND WAS ABLE TO MOVE TO HER WHEELCHAIR AFTERWARDS. 1138 IV WAS DC'D WITH CATH INTACT 1140 SBAR REPORT WAS GIVEN TO HOWARD QUIROZ. LUNGS WERE DIMINISHED IN THE BASES. SHE DENIES ANY PAIN OR NAUSEA. SHE REMAINS ON 2 LITERS NASAL CANNULA. SEE DISCHARGE ASSESSMENT. 1154 PATIENT WAS DC'D VIA WHEELCHAIR AND WAS ACCOMPANIED JOVANNA METER READING CLERK AND Irma QUIROZ RN.
== END 2018-05-16 11:54 | disposition home or self-care (01) ==
LOC: OR 02:00
PROVIDERS: ATTEND Surgery
DX: K21.0 Gastro-esophageal reflux disease with esophagitis (principal); K29.70 Gastritis, unspecified, without bleeding; K25.9 Gastric ulcer, unspecified as acute or chronic, without hemorrhage or perforation; K26.3 Acute duodenal ulcer without hemorrhage or perforation
CPT/HCPCS: 36416; 43239; 43249; 82948; 87077; 88305; 88313; 88344; C1726; J2250; J2704; J3490

== ENCOUNTER → 2018-05-22 | Outpatient (CLI) | payer MEDICARE ==
[2017-12-20 13:07] VITALS: BMI 31.8
[~2018-05-22] MED LIST changes: +PANT40TA65 PO
[2018-05-22 13:38] LABS: INR 1.69
== END ==
LOC: LAB 13:04
PROVIDERS: ATTEND Pharmacist Pharmacotherapy
DX: Z51.81 Encounter for therapeutic drug level monitoring (principal); Z79.01 Long term (current) use of anticoagulants; Z86.711 Personal history of pulmonary embolism
CPT/HCPCS: 36415; 85610

== ENCOUNTER → 2018-06-02 | Outpatient (REF) | payer MEDICARE ==
[2017-12-20 13:07] VITALS: BMI 31.8
[~2018-06-02] MED LIST changes: +OSE75 PO
== END ==
LOC: ZZSPRING 14:52
PROVIDERS: ATTEND Nurse Practitioner Family
DX: R60.0 Localized edema (principal)

== ENCOUNTER → 2018-06-03 | Outpatient (CLI) | payer MEDICARE ==
[2017-12-20 13:07] VITALS: BMI 31.8
== END ==
LOC: ZZSPRING 01:25
PROVIDERS: ATTEND Nurse Practitioner Family
DX: R60.0 Localized edema (principal)
CPT/HCPCS: 36415; 82040; 82247; 82310; 82374; 82435; 82565; 82947; 84075; 84132; 84155; 84295; 84450; 84460; 84520; 85027

== ENCOUNTER → 2018-06-10 | Outpatient (CLI) | payer MEDICARE ==
[2017-12-20 13:07] VITALS: BMI 31.8
[2018-06-10 08:55] LABS: INR 1.73
== END ==
LOC: ZZSPRING 01:31
PROVIDERS: ATTEND Pharmacist Pharmacotherapy
DX: Z86.711 Personal history of pulmonary embolism (principal)
CPT/HCPCS: 36415; 85610

== ENCOUNTER → 2018-06-24 | Outpatient (CLI) | payer MEDICARE ==
[2017-12-20 13:07] VITALS: BMI 31.8
[2018-06-24 08:22] LABS: INR 1.45
== END ==
LOC: ZZSPRING 01:35
PROVIDERS: ATTEND Pharmacist Pharmacotherapy
DX: Z51.81 Encounter for therapeutic drug level monitoring (principal); Z86.711 Personal history of pulmonary embolism; Z79.01 Long term (current) use of anticoagulants
CPT/HCPCS: 36415; 85610

== ENCOUNTER → 2018-07-01 | Outpatient (CLI) | payer MEDICARE ==
[2017-12-20 13:07] VITALS: BMI 31.8
[2018-07-01 08:33] LABS: INR 1.31
== END ==
LOC: ZZSPRING 02:12
PROVIDERS: ATTEND Pharmacist Pharmacotherapy
DX: Z86.711 Personal history of pulmonary embolism (principal)
CPT/HCPCS: 36415; 85610

== ENCOUNTER → 2018-07-08 | Outpatient (CLI) | payer MEDICARE ==
[2017-12-20 13:07] VITALS: BMI 31.8
[2018-07-08 08:37] LABS: INR 2.16
== END ==
LOC: ZZSPRING 02:36
PROVIDERS: ATTEND Pharmacist Pharmacotherapy
DX: Z51.81 Encounter for therapeutic drug level monitoring (principal); Z86.711 Personal history of pulmonary embolism
CPT/HCPCS: 36415; 85610

== ENCOUNTER → 2018-07-22 | Outpatient (CLI) | payer MEDICARE ==
[2017-12-20 13:07] VITALS: BMI 31.8
[2018-07-22 08:27] LABS: INR 1.9
== END ==
LOC: ZZSPRING 01:00
PROVIDERS: ATTEND Pharmacist Pharmacotherapy
DX: Z51.81 Encounter for therapeutic drug level monitoring (principal); Z86.711 Personal history of pulmonary embolism; Z79.01 Long term (current) use of anticoagulants
CPT/HCPCS: 36415; 85610

== ENCOUNTER → 2018-08-05 | Outpatient (CLI) | payer MEDICARE ==
[2017-12-20 13:07] VITALS: BMI 31.8
[~2018-08-05] MED LIST changes: -CALC-488 PO; +CALC-743 PO
[2018-08-05 08:44] LABS: INR 3.18
== END ==
LOC: ZZSPRING 16:15
PROVIDERS: ATTEND Pharmacist Pharmacotherapy
DX: Z51.81 Encounter for therapeutic drug level monitoring (principal); Z79.01 Long term (current) use of anticoagulants; Z86.711 Personal history of pulmonary embolism
CPT/HCPCS: 36415; 85610

== ENCOUNTER → 2018-09-02 | Outpatient (CLI) | payer MEDICARE ==
[2017-12-20 13:07] VITALS: BMI 31.8
[2018-09-02 08:54] LABS: INR 3.57
== END ==
LOC: ZZSENDIN 08:05
PROVIDERS: ATTEND Pharmacist Pharmacotherapy
DX: I82.409 Acute embolism and thrombosis of unspecified deep veins of unspecified lower extremity (principal)
CPT/HCPCS: 36415; 85610

== ENCOUNTER → 2018-09-02 | Outpatient (CLI) | payer MEDICARE ==
[2017-12-20 13:07] VITALS: BMI 31.8
== END ==
LOC: ZZSPRING 01:36
PROVIDERS: ATTEND Nurse Practitioner Family
DX: Z02.9 Encounter for administrative examinations, unspecified (principal)
CPT/HCPCS: 36415; 85610

== ENCOUNTER → 2018-09-09 | Outpatient (CLI) | payer MEDICARE ==
[2017-12-20 13:07] VITALS: BMI 31.8
[2018-09-09 09:16] LABS: INR 2.33
== END ==
LOC: ZZSPRING 02:03
PROVIDERS: ATTEND Pharmacist Pharmacotherapy
DX: I82.409 Acute embolism and thrombosis of unspecified deep veins of unspecified lower extremity (principal)
CPT/HCPCS: 36415; 85610

== ENCOUNTER → 2018-09-23 | Outpatient (CLI) | payer MEDICARE ==
[2017-12-20 13:07] VITALS: BMI 31.8
[2018-09-23 08:42] LABS: INR 2.73
== END ==
LOC: ZZSPRING 00:59
PROVIDERS: ATTEND Emergency Medicine
DX: I82.409 Acute embolism and thrombosis of unspecified deep veins of unspecified lower extremity (principal)
CPT/HCPCS: 36415; 85610

== ENCOUNTER → 2018-10-14 | Outpatient (CLI) | payer MEDICARE ==
[2017-12-20 13:07] VITALS: BMI 31.8
[~2018-10-14] MED LIST changes: +CEFT1VIA63 IV
== END ==
LOC: ZZSPRING
PROVIDERS: ATTEND Emergency Medicine
DX: R60.9 Edema, unspecified (principal)
CPT/HCPCS: 36415; 82310; 82374; 82435; 82565; 82947; 84132; 84295; 84520

== ENCOUNTER → 2018-10-21 | Outpatient (CLI) | payer MEDICARE ==
[2017-12-20 13:07] VITALS: BMI 31.8
[~2018-10-21] MED LIST changes: -CEFT1VIA63 IV
[2018-10-21 08:52] LABS: INR 2.49
== END ==
LOC: ZZSPRING 01:25
PROVIDERS: ATTEND Pharmacist Pharmacotherapy
DX: Z51.81 Encounter for therapeutic drug level monitoring (principal); Z86.711 Personal history of pulmonary embolism; Z79.01 Long term (current) use of anticoagulants
CPT/HCPCS: 36415; 85610

== ENCOUNTER 2018-10-28 11:32 | Inpatient (IN) | payer MEDICARE ==
[2017-12-20 13:07] VITALS: Ht 172.7 cm; Wt 83.0 kg
[2018-10-28] VITALS (21 sets, daily range): BP systolic 66–131; BP diastolic 34–53
[~2018-10-28] VITALS: Ht 172.7 cm; Wt 83.0 kg
[2018-10-28] MEDS ORDERED: NS(*) 0.9% 500 ML BAG 500 ML IV ONE (11:40)
--- NOTE | 2018-10-28 11:40 | ER Report ---
History and Physical Time Seen By MD: 11:36 HPI/ROS CHIEF COMPLAINT: Bilateral leg pain HISTORY OF PRESENT ILLNESS: 87-year-old female patient presents to emergency room with complaint of bilateral lower leg pain. Patient states this been going on for quite some time. States that they've gotten more swollen. States the pain is worsened today. She states she's not talked with her primary care provider about this. She denies having fevers, but states she is always cold. She denies any nausea, vomiting or diarrhea. Patient states pain is significant. She has not taken any medication for this. Patient was referred up by the assisted living where she is at with altered mental status. REVIEW OF SYSTEMS: Respiratory: No cough, no dyspnea. Cardiovascular: No chest pain, no palpitations. Gastrointestinal: No vomiting, no abdominal pain. Musculoskeletal: As noted above Allergies: Coded Allergies: NSAIDS (Non-Steroidal Anti-Inflamma (Verified Allergy, Unknown, 10/28/18) codeine (Verified Allergy, Unknown, 10/28/18) tramadol (Verified Adverse Reaction, Severe, Severe nausea , 10/28/18) Home Meds Active Scripts Levothyroxine Sodium (LEVOTHYROXINE SODIUM) 0.112 Mg Tab, 1 TAB PO QDAY, #90 TAB 3 Refills Prov:TRENT HERNÁNDEZ MD 10/24/18 Pantoprazole Sodium (PANTOPRAZOLE SODIUM) 40 Mg Tablet.dr, 1 TAB PO DAILY, #90 CAP 3 Refills Prov:TRENT HERNÁNDEZ MD 10/23/18 Simvastatin (SIMVASTATIN) 40 Mg Tablet, 40 MG PO HS, #90 TAB 3 Refills Prov:TRENT HERNÁNDEZ MD 09/11/18 Diaper,Brief,Adult, Disposable (Depend Fit-Flex) 1 Each Each, EA EXT TID, #270 Depend underwear max ABS womens size large Prov:TRENT HERNÁNDEZ MD 07/23/18 Cholecalciferol (Vitamin D3) (VITAMIN D3) 1,000 Unit Tablet, 1 TAB PO DAILY, #90 TAB 4 Refills Prov:TRENT HERNÁNDEZ MD 07/23/18 Spironolactone (SPIRONOLACTONE) 25 Mg Tablet, 25 MG PO QDAY, #90 TAB 1 Refill Prov:TRENT HERNÁNDEZ MD 06/24/18 Solifenacin Succinate (VESICARE) 10 Mg Tablet, 1 TAB PO QDAY, #90 TAB 1 Refill Prov:TRENT HERNÁNDEZ MD 06/11/18 Alendronate Sodium (ALENDRONATE SODIUM) 70 Mg Tablet, 1 TAB PO QWEEK for 90 Days, #12 TAB 3 Refills Give dose early every Saturday morning before breakfast, and remain upright for half an hour. Prov:TRENT HERNÁNDEZ MD 02/17/18 Aspirin (ASPIRIN EC) 81 Mg Tabec, 1 TAB PO QDAY, #90 TAB 4 Refills Prov:TRENT HERNÁNDEZ MD 02/12/18 Glimepiride (GLIMEPIRIDE) 1 Mg Tablet, 1 MG PO QDAY, #90 TAB 3 Refills Prov:TRENT HERNÁNDEZ MD 12/31/17 Calcium Carbonate (OYSTER SHELL CALCIUM) 500 Mg Tablet, 1000 MG PO DAILY, #180 TAB 3 Refills Prov:TRENT HERNÁNDEZ MD 12/23/17 Acetaminophen (MAPAP) 325 Mg Tab, 650 MG PO BID PRN for PAIN OR FEVER 100 OR GREATER, #360 TAB 11 Refills Prov:TRENT HERNÁNDEZ MD 04/16/17 Blood Sugar Diagnostic (FREESTYLE LITE TEST STRIPS) 1 Each Strip, 1 EACH MC DAILY PRN for as directed, #1 BOX 4 Refills Check blood sugar as needed. Prov:TRENT HERNÁNDEZ MD 12/21/16 Oxygen (OXYGEN) Inha, 2 L INH HS, #2 L Prov:TRENT HERNÁNDEZ MD 11/10/15 Reported Medications Polyethylene Glycol 3350 (MIRALAX) 17 Gm Powd.pack, 17 GM PO QDAY, PKT 10/28/18 Warfarin Sodium (WARFARIN SODIUM) 3 Mg Tablet, 4.5 MG PO MON,WED,FRI, TAB 10/28/18 Warfarin Sodium (WARFARIN SODIUM) 3 Mg Tablet, 3 MG PO SAT,SAT,SAT,SAT, TAB 10/28/18 Docusate Sodium (DOCUSATE SODIUM) 100 Mg Tablet, 2 TAB PO BID 05/09/18 Calcium Carbonate/Mag Hydrox (ANTACID CHEWABLE TABLET) 1 Each Tab.chew, 750 MG PO PRN, TAB.CHEW 05/09/18 Ondansetron 4 Mg Odt (ONDANSETRON 4 MG ODT) 4 Mg Tab.rapdis, 4 MG PO Q12H PRN for NAUSEA 12/19/17 Dextran 70/Hypromellose (ARTIFICIAL TEARS) 1 Each Droperette, 1 EACH OP TID Also PRN from dry eyes 12/19/17 Discontinued Scripts Furosemide (FUROSEMIDE) 40 Mg Tablet, 2 TAB PO DAILY, #60 TAB 11 Refills Prov:TRENT HERNÁNDEZ MD 10/22/18 Oseltamivir Phosphate (TAMIFLU) 75 Mg Cap, 75 MG PO DAILY, #7 CAP Prov:TRENT HERNÁNDEZ MD 05/26/18 Warfarin Sodium (WARFARIN SODIUM) 3 Mg Tablet, 3 MG PO QDAY for 30 Days, #30 TAB 5 Refills Prov:JOLYNN LIN PHARMD 03/28/18 Past Medical/Surgical History Patient has a past medical history of diabetic neuropathy, edema, hyper lipidemia, pulmonary embolus, overactive bladder, osteopenia, ulcer on lower leg, type 2 diabetes, chronic phlebitis, DVT, cellulitis. Patient has surgical history of vena cava filter, fibroids, right ankle fracture, laminectomy. Patient has a family medical history of COPD, heart disease, pneumonia, skin cancer, Alzheimer's. Reviewed Nurses Notes: Yes Hx Smoking: No Smoking Status: Never Smoker Hx Substance Use Disorder: No Hx Alcohol Use: No Constitutional Vital Sign - Last 24 Hours 10/28/18 10/28/18 10/28/18 10/28/18 11:46 12:00 12:30 13:00 Temp 98.7 Pulse 110 108 104 108 Resp 18 B/P (MAP) 140/74 120/47 (71) 142/38 (72) Pulse Ox 95 95 94 93 O2 Delivery Nasal Cannula 10/28/18 14:51 B/P (MAP) 155/148 (150) Physical Exam General Appearance: The patient is alert, has no immediate need for airway protection and no current signs of toxicity. Respiratory: Chest is non tender, lungs are clear to auscultation. Cardiac: regular rate and rhythm Gastrointestinal: Abdomen is soft and tender in bilateral lower quadrants, no masses, bowel sounds normal. Musculoskeletal: Neck: Neck is supple and non tender. Extremities have full range of motion and are non tender. Patient has swelling, heat to the left lower leg, swelling to the right lower leg. Patient has significant tenderness to palpation bilateral legs. Skin: No rashes or lesions. DIFFERENTIAL DIAGNOSIS: After history and physical exam differential diagnosis was considered for cellulitis, congestive heart failure, fracture, lower extremity edema. Medical Decision Making Data Points Result Diagram: 10/28/18 1217 10/28/18 1217 Laboratory Hematology Test 10/28/18 12:17 White Blood Count 16.4 k/uL (4.5-11.0) H Red Blood Count 4.97 M/uL (4.17-5.56) Hemoglobin 14.5 g/dL (12.0-16.0) Hematocrit 43.5 % (34.0-47.0) Mean Corpuscular Volume 87.5 fL (80.0-96.0) Mean Corpuscular Hemoglobin 29.2 pg (26.0-33.0) Mean Corpuscular Hemoglobin Concent 33.4 g/dL (32.0-36.0) Red Cell Distribution Width 15.4 % (11.5-14.5) H Platelet Count 272 K/uL (150-450) Mean Platelet Volume 7.9 fL (7.2-11.1) Neutrophils (%) (Auto) 95.1 % (39.4-72.5) H Lymphocytes (%) (Auto) 2.6 % (17.6-49.6) L Monocytes (%) (Auto) 2.1 % (4.1-12.4) L Eosinophils (%) (Auto) 0.0 % (0.4-6.7) L Basophils (%) (Auto) 0.2 % (0.3-1.4) L Nucleated RBC Relative Count (auto) 0.0 /100WBC Neutrophils # (Auto) 15.5 K/uL (2.0-7.4) H Lymphocytes # (Auto) 0.4 K/uL (1.3-3.6) L Monocytes # (Auto) 0.3 K/uL (0.3-1.0) Eosinophils # (Auto) 0.0 K/uL (0.0-0.5) Basophils # (Auto) 0.0 K/uL (0.0-0.1) Nucleated RBC Absolute Count (auto) 0.01 K/uL Chemistry Test 10/28/18 00:00 10/28/18 12:17 Thyroid Stimulating Hormone (TSH) 1.85 uIU/ml (0.46-4.68) Sodium Level 139 mmol/L (137-145) Potassium Level 3.9 mmol/L (3.5-5.0) Chloride Level 98 mmol/L (98-107) Carbon Dioxide Level 26 mmol/L (22-31) Blood Urea Nitrogen 34 mg/dl (7-18) Creatinine 1.00 mg/dl (0.52-1.04) Glomerular Filtration Rate Calc 52.4 Random Glucose 230 mg/dl (75-110) Calcium Level 9.0 mg/dl (8.4-10.2) Total Bilirubin 0.7 mg/dl (0.2-1.3) Aspartate Amino Transf (AST/SGOT) 27 U/L (0-35) Alanine Aminotransferase (ALT/SGPT) 15 U/L (0-56) Alkaline Phosphatase 129 U/L (0-126) Ammonia < 9 UMOL/L (9-33) Troponin I 0.023 ng/ml B-Type Natriuretic Peptide 66 pg/ml (0-100) Total Protein 7.9 g/dl (6.3-8.2) Albumin 4.4 g/dl (3.5-5.0) Toxicology Test 10/28/18 12:17 10/28/18 15:03 Serum Alcohol < 10 mg/dl Urine Opiates Screen Negative Urine Barbiturates Screen Negative Ur Tricyclic Antidepressants Screen Negative Urine Phencyclidine Screen Negative Urine Amphetamines Screen Negative Urine Benzodiazepines Screen Negative Urine Cocaine Screen Negative Urine Cannabinoids Screen Positive Urinalysis Test 10/28/18 15:03 Urine Color Straw Urine Clarity Slightly-cloudy Urine pH 5.0 pH (4.8-9.5) Urine Specific [place] 1.009 Urine Protein Negative mg/dL (NEGATIVE) Urine Glucose (UA) Negative mg/dL (NEGATIVE) Urine Ketones Negative mg/dL (NEGATIVE) Urine Blood Small (NEGATIVE) Urine Nitrite Negative (NEGATIVE) Urine Bilirubin Negative (NEGATIVE) Urine Urobilinogen Negative mg/dL (0.2-1.9) Urine Leukocyte Esterase Moderate (NEGATIVE) Urine RBC 2 /HPF (0-2/HPF) Urine WBC 160 /HPF (0-5/HPF) Urine Squamous Epithelial Cells Few /LPF (NONE-FEW) Urine Bacteria Negative /HPF (NONE-FEW) Urine Hyaline Casts Few /LPF (NONE-FEW) Urine Mucus None /HPF (NONE-FEW) EKG/Imaging EKG Interpretation 12 lead EKG: Rhythm: Sinus tachycardia with a ventricular rate of 110 bpm [place]: normal QRS: normal ST segments: Nonspecific ST abnormality. Imaging Exam type: CHEST SINGLE AP History: AMS Comparison: February 14, 2018. Findings: Chronic interstitial changes are again seen throughout the lungs. There is no evidence of acute pulmonary consolidation pleural effusions or overt pulmonary edema. Cardiac silhouette is normal in size. IMPRESSION: 1. Chronic interstitial changes noted throughout the lungs Report Dictated By: Riri Bright MD at 10/28/2018 1:22 PM Report E-Signed By: Riri Bright MD at 10/28/2018 1:[address] scan without contrast HISTORY: AMS COMPARISONS: None TECHNIQUE: Non-contrast head CT was performed with sagittal and coronal reformations. One of the following dose optimization techniques was utilized in the performance of this exam: automated exposure control; adjustment of the mA and/or kV according to patient size; or use of iterative reconstruction techniqu e. Specific details can be referenced in the facility's radiology CT exam operational policy. FINDINGS: There is no intracranial hemorrhage, hydrocephalus or midline shift. The basal cisterns, newman-white differentiation, and convexity sulci are maintained. Cataract postsurgical change noted. Mild parenchymal atrophy. Moderate patchy white matter hypoattenuation. Clear mastoid air cells, small left maxillary sinus mucous retention cyst and normal osseous structures. IMPRESSION: No acute intracranial abnormality. Moderate chronic small vessel ischemic change. Report Dictated By: Sudeep Guardado MD at 10/28/2018 2:22 PM Report E-Signed By: Sudeep Guardado MD at 10/28/2018 2:31 PM Examination: Computed tomography left tibia-fibula with contrast HISTORY: Cellulitis. Evaluate for soft tissue abscess. TECHNIQUE: Transaxial computed tomography images are obtained of the left lower leg following the administration of 75 mL Isovue-370. Multiplanar reformatted images were created in the coronal and sagittal planes. One of the following dose optimization techniques was utilized in the performance of this exam: Automated exposure control; adjustment of the mA and/or kV according to the patient's size; or use of an iterative reconstruction technique. Specific details can be referenced in the facility's radiology CT exam operational policy. COMPARISON: None. FINDINGS: Beginning just distal to the knee joint, there is circumferential subcutaneous edema identified within the lower leg. There is circumferential skin thickening identified. These findings progressively worsen distally towards the ankle. No well-defined fluid collection is seen to suggest an abscess. There are no flecks of gas within the soft tissues. There is atrophy involving the medial head of the gastrocnemius musculature. This is either reflective of chronic denervation change or possibly an old injury. The lateral head appears intact. The distal soleus musculature also demonstrates fatty atrophy consistent with chronic denervation change or prior injury. The anterior and lateral compartment musculature is maintained. The skin thickening and circumferential edema extends about the included hindfoot and dorsum of the midfoot. No evidence of acute fracture of the tibia or the fibula. At the knee joint, there are changes of meniscal chondrocalcinosis. No definitive joint effusion. Tibiotalar joint and subtalar joints at the ankle appear intact. IMPRESSION: 1. Circumferential skin thickening and subcutaneous edema involving the left lower leg. This is most pronounced within the distal third of the lower leg extending about the ankle and the included foot. This would be consistent with the stated history of cellulitis. No evidence of soft tissue abscess, fluid collection or soft tissue gas. 2. Fatty atrophy of the medial head of the gastrocnemius muscle as well as the distal soleus musculature within the posterior compartment. Appearance would favor chronic denervation change. This could also be sequela of an old injury. Correlate clinically. Report Dictated By: Andres Carlisle at 10/28/2018 4:43 PM Report E-Signed By: Andres Carlisle at 10/28/2018 4:52 PM Exam type: PICC LINE INSERTION, US GUIDANCE VASCULAR ACCESS History: iv access, sepsis Comparison: None. Findings: Informed consent was obtained. The patient's right arm was prepped and draped usual sterile fashion. Local anesthesia was accomplished with 1% lidocaine. Under direct and continuous sonographic guidance the patent right brachial vein was accessed with a micropuncture needle. Guidewire was inserted through the needle with the distal tip resting in superior vena cava under fluoroscopic and sonographic guidance. Needle was removed and a peel-away sheath was advanced over the guidewire. The guidewire was removed and a 31 cm long trimmed 5 [place] double lumen power PICC was inserted via the peel-away sheath with the distal tip resting at the caval atrial junction. The peel-away sheath was removed. Both lumens of power PICC were flushed with 5 mL of saline flush. The proximal portion PICC line was adhered to the patient's arm the sterile dressing. Sonographic images were saved to PACS. The procedure was accomplished without apparent competition. The dose area product was 25.18 micro-Newman per meter squared. IMPRESSION: 1. Successful placement of a 31 cm long trimmed 5 Norwegian double lumen power PICC inserted via the patent right brachial vein with the distal tip resting at the caval atrial junction Report Dictated By: Riri Bright MD at 10/28/2018 5:00 PM Report E-Signed By: Riri Bright MD at 10/28/2018 5:03 PM ED Course/Re-evaluation ED Course Patient was admitted to an exam room, history and physical were obtained. Differential diagnoses were considered. On examination lungs are clear, heart is regular, abdomen is soft and nontender. Patient does have seemed have swelling and heat especially to the left lower extremity. Patient was tachycardic. An IV was started, CBC, CMP, lactate, EKG, troponin, chest x-ray, CT scan of the head was done. I did order blood cultures. Those were obtained after the patient had a PICC line placed. We will able to get a 22-gauge IV started in the left hand. That was accidentally DC'd. Lactate came back at 4.1. Patient had a creatinine of one. Patient was started on cefazolin. I did discuss the case with Dr. Rodriguez, hospitalist, who did come down to the emergency room evaluated the patient. He requested that a CT scan of the lower leg be done to look for a gas producing bacteria. Those were ordered but he did accept the patient for a dmission. Patient was diagnosed with sepsis and cellulitis. Decision to Disposition Date: Oct 28, 2018 Decision to Disposition Time: 14:39 Depart Departure Latest Vital Signs Vital Signs Date Time Temp Pulse Resp B/P (MAP) Pulse Ox O2 Delivery O2 Flow Rate FiO2 10/28/18 14:51 155/148 (150) 10/28/18 13:00 108 93 10/28/18 11:46 98.7 18 Nasal Cannula Impression: Primary Impression: Sepsis Additional Impression: Cellulitis Condition: Condition Unchanged Disposition: Admitted from ER Referrals: TRENT HERNÁNDEZ MD (PCP) Problem Qualifiers Primary Impression: Sepsis Sepsis type: sepsis due to unspecified organism Sepsis acute organ dy sfunction status: without acute organ dysfunction Qualified Codes: A41.9 - Sepsis, unspecified organism Additional Impression: Cellulitis Site of cellulitis: extremity Site of cellulitis of extremity: lower extremity Laterality: left Qualified Codes: L03.116 - Cellulitis of left lower limb BRET MONTALVO Oct 28, 2018 11:40
[2018-10-28 12:33] LABS: PLATELET COUNT, AUTOMATED 272 K/uL (150-450)
[2018-10-28] MEDS ORDERED: NS(*) 0.9% 1000 ML BAG 1,000 ML IV ONE (13:00)
[2018-10-28] MEDS ORDERED: CEFAZOLIN IVP ONE (13:00)
[2018-10-28] MEDS ORDERED: WATER STERILE IVP ONE (13:00)
--- NOTE | 2018-10-28 13:27 | EKG ---
FACILITY: [facility] PATIENT NAME: HIREN PRITCHETT : [id number] MR: [id number] V: [id number] EXAM DATE: ORDERING PHYSICIAN: BRET MONTALVO TECHNOLOGIST: Test Reason : AMS Blood Pressure : / mmHG Vent. Rate : 110 BPM Atrial Rate : 110 BPM P-R Int : 160 ms QRS Dur : 084 ms QT Int : 334 ms P-R-T Axes : 061 060 048 degrees QTc Int : 452 ms Sinus tachycardia Nonspecific ST and T wave abnormality Abnormal ECG When compared with ECG of 20-DEC-2017 12:32, Vent. rate has increased BY 42 BPM Confirmed by CRISTOFER CORDOBA ([id number]) on 10/28/2018 10:01:09 PM Referred By: Confirmed By:CRISTOFER CORDOBA
--- NOTE | 2018-10-28 13:32 | RADIOLOGY IMAGING REPORT ---
FACILITY: [facility] [place] PATIENT NAME: Keyla Graves : 1930 MR: [id number] V: [id number] EXAM DATE: ORDERING PHYSICIAN: BRET MONTALVO TECHNOLOGIST: Location: [facility] [place] Patient: Keyla Graves : 1930 Visit/Account:[id number] Date of Sevice: 10/28/2018 Exam type: CHEST SINGLE AP History: AMS Comparison: February 14, 2018. Findings: Chronic interstitial changes are again seen throughout the lungs. There is no evidence of acute pulm onary consolidation pleural effusions or overt pulmonary edema. Cardiac silhouette is normal in size . IMPRESSION: 1. Chronic interstitial changes noted throughout the lungs Report Dictated By: Riri Bright MD at 10/28/2018 1:22 PM Report E-Signed By: Riri Bright MD at 10/28/2018 1:23 PM WSN:[email or web address]
--- NOTE | 2018-10-28 14:41 | RADIOLOGY IMAGING REPORT ---
FACILITY: [facility] PATIENT NAME: Keyla Graves : 1930 MR: [id number] V: [id number] EXAM DATE: ORDERING PHYSICIAN: BRET MONTALVO TECHNOLOGIST: Location: [facility] Patient: Keyla Graves : 1930 Visit/Account:[id number] Date of Sevice: 10/28/[address] scan without contrast HISTORY: AMS COMPARISONS: None TECHNIQUE: Non-contrast head CT was performed with sagittal and coronal reformations. One of the following dose optimization techniques was utilized in the performance of this exam: autom ated exposure control; adjustment of the mA and/or kV according to patient size; or use of iterative reconstruction technique. Specific details can be referenced in the facility's radiology CT exam ope rational policy. FINDINGS: There is no intracranial hemorrhage, hydrocephalus or midline shift. The basal cisterns, gonzales-white differentiation, and convexity sulci are maintained. Cataract postsurgical change noted. Mild parench ymal atrophy. Moderate patchy white matter hypoattenuation. Clear mastoid air cells, small left maxillary sinus mucous retention cyst and normal osseous structur es. IMPRESSION: No acute intracranial abnormality. Moderate chronic small vessel ischemic change. Report Dictated By: Sudeep Guardado MD at 10/28/2018 2:22 PM Report E-Signed By: Sudeep Guardado MD at 10/28/2018 2:31 PM WSN:[email or web address]
[2018-10-28] MEDS ORDERED: INFLUENZA VIRUS VAC 0.5ML SYR IM ONLY ONE (15:00)
[2018-10-28] MEDS ORDERED: NS 0.9% IV ONE (15:00)
[2018-10-28] MEDS ORDERED: IOPAMIDOL 76% 100 ML INFUS BTL 100 ML ONE (15:36)
[2018-10-28] MEDS ORDERED: WARF3TAB14 PO ×2 (16:01)
[2018-10-28] MEDS ORDERED: POLY17PO25 PO (16:01)
--- NOTE | 2018-10-28 16:04 | History & Physical ---
History of Present Illness History of Present Illness 87yo female with a h/o PE, T2DM, and diabetic neuropathy who came to the ER for confusion and bilateral leg pain. The history is from the ER provider and the patient. She reports about 3 days of bilateral whole leg pain. She was apparently sent to the ER from assisted living because of concern of AMS. She denies nausea, sob, cp, orthopnea, diarrhea, or constipation. She has had some fevers. She is unable to give any more detail about the leg pain. She had follow up with Dr. Wetzel for worsening bilateral LE edema on 10/22. Her furosemide was increased from 40 to 80mg and the spironolactone was continued. In the ER, the patient was given about 400cc of NS and a dose of Cefazolin. Blood cultures were drawn after the Cefazolin because of concern of getting the antibiotics going quickly. History Problems: (1) Type II diabetes mellitus Status: Chronic (2) History of pulmonary embolism Status: Chronic (3) Hypothyroid Status: Chronic (4) Overactive bladder Status: Chronic (5) Grade II diastolic dysfunction Status: Chronic (6) Chronic edema Status: Chronic (7) Presence of vena cava filter Status: Chronic Home Meds Active Scripts Levothyroxine Sodium (LEVOTHYROXINE SODIUM) 0.112 Mg Tab, 1 TAB PO QDAY, #90 TAB 3 Refills Prov:TRENT WETZEL MD 10/24/18 Pantoprazole Sodium (PANTOPRAZOLE SODIUM) 40 Mg Tablet.dr, 1 TAB PO DAILY, #90 CAP 3 Refills Prov:TRENT WETZEL MD 10/23/18 Furosemide (FUROSEMIDE) 40 Mg Tablet, 2 TAB PO DAILY, #60 TAB 11 Refills Prov:TRENT WETZEL MD 10/22/18 Simvastatin (SIMVASTATIN) 40 Mg Tablet, 40 MG PO HS, #90 TAB 3 Refills Prov:TRENT WETZEL MD 09/11/18 Diaper,Brief,Adult, Disposable (Depend Fit-Flex) 1 Each Each, EA EXT TID, #270 Depend underwear max ABS womens size large Prov:TRENT WETZEL MD 07/23/18 Cholecalciferol (Vitamin D3) (VITAMIN D3) 1,000 Unit Tablet, 1 TAB PO DAILY, #90 TAB 4 Refills Prov:TRENT WETZEL MD 07/23/18 Spironolactone (SPIRONOLACTONE) 25 Mg Tablet, 25 MG PO QDAY, #90 TAB 1 Refill Prov:TRENT WETZEL MD 06/24/18 Solifenacin Succinate (VESICARE) 10 Mg Tablet, 1 TAB PO QDAY, #90 TAB 1 Refill Prov:TRENT WETZEL MD 06/11/18 Oseltamivir Phosphate (TAMIFLU) 75 Mg Cap, 75 MG PO DAILY, #7 CAP Prov:TRENT WETZEL MD 05/26/18 Warfarin Sodium (WARFARIN SODIUM) 3 Mg Tablet, 3 MG PO QDAY for 30 Days, #30 TAB 5 Refills Prov:JOLYNN LIN PHARMD 03/28/18 Alendronate Sodium (ALENDRONATE SODIUM) 70 Mg Tablet, 1 TAB PO QWEEK for 90 Days, #12 TAB 3 Refills Give dose early every Saturday morning before breakfast, and remain upright for half an hour. Prov:TRENT WETZEL MD 02/17/18 Aspirin (ASPIRIN EC) 81 Mg Tabec, 1 TAB PO QDAY, #90 TAB 4 Refills Prov:TRENT WETZEL MD 02/12/18 Glimepiride (GLIMEPIRIDE) 1 Mg Tablet, 1 MG PO QDAY, #90 TAB 3 Refills Prov:TRENT WETZEL MD 12/31/17 Calcium Carbonate (OYSTER SHELL CALCIUM) 500 Mg Tablet, 1000 MG PO DAILY, #180 TAB 3 Refills Prov:TRENT WETZEL MD 12/23/17 Acetaminophen (MAPAP) 325 Mg Tab, 650 MG PO BID PRN for PAIN OR FEVER 100 OR GREATER, #360 TAB 11 Refills Prov:TRENT WETZEL MD 04/16/17 Blood Sugar Diagnostic (FREESTYLE LITE TEST STRIPS) 1 Each Strip, 1 EACH MC DAILY PRN for as directed, #1 BOX 4 Refills Check blood sugar as needed. Prov:TRENT WETZEL MD 12/21/16 Oxygen (OXYGEN) Inha, 2 L INH HS, #2 L Prov:TRENT WETZEL MD 11/10/15 Reported Medications Docusate Sodium (DOCUSATE SODIUM) 100 Mg Tablet, 2 TAB PO BID 05/09/18 Calcium Carbonate/Mag Hydrox (ANTACID CHEWABLE TABLET) 1 Each Tab.chew, 750 MG PO PRN, TAB.CHEW 05/09/18 Ondansetron 4 Mg Odt (ONDANSETRON 4 MG ODT) 4 Mg Tab.rapdis, 4 MG PO Q12H PRN for NAUSEA 12/19/17 Dextran 70/Hypromellose (ARTIFICIAL TEARS) 1 Each Droperette, 1 EACH OP TID Also PRN from dry eyes 12/19/17 Allergies: Coded Allergies: NSAIDS (Non-Steroidal Anti-Inflamma (Verified Allergy, Unknown, 10/28/18) codeine (Verified Allergy, Unknown, 10/28/18) tramadol (Verified Adverse Reaction, Severe, Severe nausea , 10/28/18) Patient History: Cancer of nasal cavity FH: COPD (chronic obstructive pulmonary disease) BROTHER OR SISTER, , Age:Unknown CHILD, , Age:60 years and older CHILD, , Age:60 years and older FH: heart disease FATHER, , Age:80 FH: pneumonia MOTHER, , Age:60 years and older FH: skin cancer No Family History of: FH: Alzheimers disease Hx Smoking: No Smoking Status: Never Smoker Caffeine Intake: Coffee Caffeine/Cups Per Day: 2 cups Hx Alcohol Use: No Hx Substance Use Disorder: No Social Drug Use: Never Review of Systems All Systems Reviewed/Normal: Yes, Except as Noted Exam Vital Signs Vital Signs Date Time Temp Pulse Resp B/P (MAP) Pulse Ox O2 Delivery O2 Flow Rate FiO2 10/28/18 11:46 98.7 110 18 140/74 95 Nasal Cannula General Appearance: Alert, Awake, Other (Pale and tired appearing. ) Neuro: Other (Knows where she is and some idea of why she is in the ER.) Cardiovascular: Other (Tachy, reg. No m/r/g) Respiratory: Clear to Auscultation (Breathing comfortably) GI: Abd Soft and Non-Tender Extremities: Edema (2-3+ in ankles to mid shins) Integumentary: Other (Erythema on both shins. Left foot/reynaga with more diffuse erythema and ecchymosis. Some open sores on leg. Very tender to touch on ecchymotic areas. R leg also tender to touch, but not as tender as left. Some erythema on post/lat thigh that was isolated and about midway) Medical Decision Making Data Points Result Diagram: 10/28/18 1217 10/28/18 1217 Item Value Date Time Whole Blood Glucose 283 mg/DL H 11/10/14 1653 Whole Blood Glucose 328 mg/DL H 11/10/14 2105 Whole Blood Glucose 312 mg/DL H 11/11/14 0729 Neutrophils (%) (Auto) 95.1 % H 10/28/18 1217 Lymphocytes (%) (Auto) 2.6 % L 10/28/18 1217 Monocytes (%) (Auto) 2.1 % L 10/28/18 1217 Eosinophils (%) (Auto) 0.0 % L 10/28/18 1217 Basophils (%) (Auto) 0.2 % L 10/28/18 1217 Total Bilirubin 0.7 mg/dl 10/28/18 1217 Aspartate Amino Transf (AST/SGOT) 27 U/L 10/28/18 1217 Alanine Aminotransferase (ALT/SGPT) 15 U/L 10/28/18 1217 Alkaline Phosphatase 129 U/L H 10/28/18 1217 Ammonia < 9 UMOL/L L 10/28/18 1217 Troponin I 0.023 ng/ml 10/28/18 1217 B-Type Natriuretic Peptide 66 pg/ml 10/28/18 1217 Lactate 4.1 mmol/L *H 10/28/18 0000 Thyroid Stimulating Hormone (TSH) 1.85 uIU/ml 10/28/18 0000 Blood Urea Nitrogen 26 mg/dl H 10/14/18 0739 Creatinine 1.00 mg/dl 10/14/18 0739 Blood Urea Nitrogen 34 mg/dl H 10/28/18 1217 Creatinine 1.00 mg/dl 10/28/18 1217 EKG / Imaging EKG Interpretation Vent. Rate : 110 BPM Atrial Rate : 110 BPM P-R Int : 160 ms QRS Dur : 084 ms QT Int : 334 ms P-R-T Axes : 061 060 048 degrees QTc Int : 452 ms Sinus tachycardia T flattening inferiorly When compared with ECG of 20-DEC-2017 12:32, Vent. rate has increased BY [address] of LLE is pending CXR - 1. Chronic interstitial changes noted throughout the lungs Head CT - No acute intracranial abnormality. Moderate chronic small vessel ischemic change. Assessment and Plan Problems: (1) Sepsis Status: Acute Assessment & Plan: She presented with reported mental status changes, an elevated lactate, leukocytosis, and tachycardia. She appears to have LLE cellulitis. She was given Ancef in the ER before the blood cultures were done because of concern about severity of infection. She only received 400cc of IVF resuscitation secondary to loss of IV access. She is currently getting a PICC line. Repeat lactate after the 2100cc NS total bolus. (2) Cellulitis Status: Acute Assessment & Plan: She reports that she has had bilateral leg pain for 3 days prior to admission. The LLE has ecchymosis/erythema/swelling/extreme tenderness from the foot to knee. The erythema appears to be extending above the knee and marked boundaries at the time of my exam. There is an isolated erythematous area on the post/lat thigh. Because of the rapid progression and extreme pain, I asked that a CT be done of the leg to look for evidence of necrotizing fascitis. She will be switched to Unasyn and Vancomycin because she is diabetic. (3) Type II diabetes mellitus Status: Chronic Assessment & Plan: Chronically on glimepiride, which will be held for now. She will be on AC and HS glucose with SSI level 2 to cover. (4) History of pulmonary embolism Status: Chronic Assessment & Plan: She is chronically on warfarin and reportedly has an IVC filter. INR ordered and will check daily. Will reorder warfarin based on INR. (5) Chronic edema Status: Chronic Assessment & Plan: Followed by Dr. Wetzel. Was increased from Lasix 40mg to 80mg and was continued on spironolactone on 10/22. BNP and Troponin wnl. Holding Lasix and spironolactone. (6) Overactive bladder Status: Chronic Assessment & Plan: Holding solifenacin for now. (7) Carotid stenosis Status: Chronic Assessment & Plan: Holding chronic ASA and simvastatin. (8) Grade II diastolic dysfunction Status: Chronic Copies to: TRENT WETZEL MD ; Venous Thromboembolism Antithrombotics Is Pt On Any Antithrombotics?: Yes Exam Sepsis Risk: No Definite Risk CRISTOFER CORDOBA MD Oct 28, 2018 16:04
[2018-10-28] MEDS: AMPICILLIN/SULBACT (*) 3 GM VL 3 GM in NS(*) 0.9% 100 ML MINI-BAG 100 ML IVPB SCH ×2 (16:23→21:40)
[2018-10-28] MEDS: ACETAMINOPHEN(*)1000 MG/100 ML 100 ML IVPB PRN (16:59)
[2018-10-28] MEDS ORDERED: VANCOMYCIN(*) 1 GM VIAL 1 GM, VANCOMYCIN HCL 0.750 GM VIAL 0.75 GM in NS(*) 0.9% 250 ML... IVPB ONE (17:00)
--- NOTE | 2018-10-28 17:00 | RADIOLOGY IMAGING REPORT ---
FACILITY: [facility] [place] PATIENT NAME: Keyla Graves : 1930 MR: [id number] V: [id number] EXAM DATE: ORDERING PHYSICIAN: BRET MONTALVO TECHNOLOGIST: Location: [facility] - [place] Patient: Keyla Graves : 1930 Visit/Account:[id number] Date of Sevice: 10/28/2018 Examination: Computed tomography left tibia-fibula with contrast HISTORY: Cellulitis. Evaluate for soft tissue abscess. TECHNIQUE: Transaxial computed tomography images are obtained of the left lower leg following the adm inistration of 75 mL Isovue-370. Multiplanar reformatted images were created in the coronal and sagit annette planes. One of the following dose optimization techniques was utilized in the performance of this exam: Autom ated exposure control; adjustment of the mA and/or kV according to the patient's size; or use of an i terative reconstruction technique. Specific details can be referenced in the facility's radiology C T exam operational policy. COMPARISON: None. FINDINGS: Beginning just distal to the knee joint, there is circumferential subcutaneous edema identified withi n the lower leg. There is circumferential skin thickening identified. These findings progressively wo rsen distally towards the ankle. No well-defined fluid collection is seen to suggest an abscess. Ther e are no flecks of gas within the soft tissues. There is atrophy involving the medial head of the gastrocnemius musculature. This is either reflectiv e of chronic denervation change or possibly an old injury. The lateral head appears intact. The dista l soleus musculature also demonstrates fatty atrophy consistent with chronic denervation change or pr ior injury. The anterior and lateral compartment musculature is maintained. The skin thickening and circumferential edema extends about the included hindfoot and dorsum of the m idfoot. No evidence of acute fracture of the tibia or the fibula. At the knee joint, there are changes of men iscal chondrocalcinosis. No definitive joint effusion. Tibiotalar joint and subtalar joints at the an kle appear intact. IMPRESSION: 1. Circumferential skin thickening and subcutaneous edema involving the left lower leg. This is most pronounced within the distal third of the lower leg extending about the ankle and the included foot. This would be consistent with the stated history of cellulitis. No evidence of soft tissue abscess, f luid collection or soft tissue gas. 2. Fatty atrophy of the medial head of the gastrocnemius muscle as well as the distal soleus musculat ure within the posterior compartment. Appearance would favor chronic denervation change. This could a lso be sequela of an old injury. Correlate clinically. Report Dictated By: Andres Carlisle at 10/28/2018 4:43 PM Report E-Signed By: Andres Carlisle at 10/28/2018 4:52 PM WSN:[email or web address]
--- NOTE | 2018-10-28 17:02 | Pharmacy Note ---
Vancomycin Management Note Vanco Dosing Note Pharmacy Services Pharmacokinetic Dosing Consult, Vancomycin Pharmacy has been consulted for dosing and monitoring of vancomycin for 87 yo female for cellulitis/sepsis. Pertinent Past Medical History: DM type 2, PE Antibiotics prior to admission; unknown Additional Antimicrobials: unasyn 3g Q6H Start 10/28 Patient Information: Height (cm): 172.7 cm Actual Body Weight (ABW): 72.6kg Pertinent Lab Tests WHITE BLOOD COUNT 16.4 NEUTROPHILS 95.1% BLOOD UREA NITROGEN 34 SCR 1.0 VANCOMYCIN TROUGH VANCOMYCIN RANDOM Culture Results: BLOOD URINE SPUTUM WOUND Assessment: CrCl ~35ml/min Renal function is stable Vancomycin Monitoring Assessment Goal Vancomycin Trough Level: 15-20 Plan: 1) Vancomycin 25 mg/kg loading dose (based on ABW): 1750 mg IV x 1 2) Vancomycin maintenance dose (based on ABW): 1250mg Q24h 3) Vancomycin monitoring: Random vanco level planned for 10/30 at 1600, 1 hour before the 3rd dose. Pharmacy will continue to monitor daily and adjust regimen as appropriate. Thank you for the consult. JAHAIRA RAMÍREZ Oct 28, 2018 17:02
--- NOTE | 2018-10-28 17:11 | RADIOLOGY IMAGING REPORT ---
FACILITY: [facility] - [place] PATIENT NAME: Keyla Graves : 1930 MR: [id number] V: [id number] EXAM DATE: ORDERING PHYSICIAN: BRET MONTALVO TECHNOLOGIST: Location: [facility] [place] Patient: Keyla Graves : 1930 Visit/Account:[id number] Date of Sevice: 10/28/2018 Exam type: PICC LINE INSERTION, US GUIDANCE VASCULAR ACCESS History: iv access, sepsis Comparison: None. Findings: Informed consent was obtained. The patient's right arm was prepped and draped usual sterile fashion. Local anesthesia was accomplished with 1% lidocaine. Under direct and continuous sonographic mariia nce the patent right brachial vein was accessed with a micropuncture needle. Guidewire was inserted through the needle with the distal tip resting in superior vena cava under fluoroscopic and sonograph ic guidance. Needle was removed and a peel-away sheath was advanced over the guidewire. The guidewi re was removed and a 31 cm long trimmed 5 [place] double lumen power PICC was inserted via the peel-aw ay sheath with the distal tip resting at the caval atrial junction. The peel-away sheath was removed . Both lumens of power PICC were flushed with 5 mL of saline flush. The proximal portion PICC line was adhered to the patient's arm the sterile dressing. Sonographic images were saved to PACS. The p rocedure was accomplished without apparent competition. The dose area product was 25.18 micro-Newman p er meter squared. IMPRESSION: 1. Successful placement of a 31 cm long trimmed 5 [place] double lumen power PICC inserted via the pa tent right brachial vein with the distal tip resting at the caval atrial junction Report Dictated By: Riri Bright MD at 10/28/2018 5:00 PM Report E-Signed By: Riri Bright MD at 10/28/2018 5:03 PM WSN:[email or web address]
--- NOTE | 2018-10-28 17:12 | RADIOLOGY IMAGING REPORT ---
FACILITY: [facility] PATIENT NAME: Keyla Graves : 1930 MR: [id number] V: [id number] EXAM DATE: ORDERING PHYSICIAN: BRET MONTALVO TECHNOLOGIST: Location: [facility] Patient: Keyla Graves : 1930 Visit/Account:[id number] Date of Sevice: 10/28/2018 Exam type: PICC LINE INSERTION, US GUIDANCE VASCULAR ACCESS History: iv access, sepsis Comparison: None. Findings: Informed consent was obtained. The patient's right arm was prepped and draped usual sterile fashion. Local anesthesia was accomplished with 1% lidocaine. Under direct and continuous sonographic mariia nce the patent right brachial vein was accessed with a micropuncture needle. Guidewire was inserted through the needle with the distal tip resting in superior vena cava under fluoroscopic and sonograph ic guidance. Needle was removed and a peel-away sheath was advanced over the guidewire. The guidewi re was removed and a 31 cm long trimmed 5 [place] double lumen power PICC was inserted via the peel-aw ay sheath with the distal tip resting at the caval atrial junction. The peel-away sheath was removed . Both lumens of power PICC were flushed with 5 mL of saline flush. The proximal portion PICC line was adhered to the patient's arm the sterile dressing. Sonographic images were saved to PACS. The p rocedure was accomplished without apparent competition. The dose area product was 25.18 micro-Newman p er meter squared. IMPRESSION: 1. Successful placement of a 31 cm long trimmed 5 [place] double lumen power PICC inserted via the pa tent right brachial vein with the distal tip resting at the caval atrial junction Report Dictated By: Riri Bright MD at 10/28/2018 5:00 PM Report E-Signed By: Riri Bright MD at 10/28/2018 5:03 PM WSN:[email or web address]
[2018-10-28 18:15] LABS: INR 3.28
[2018-10-28] MEDS: HYDROCORTISONE 100 MG/2 ML IVP SCH (19:40)
[2018-10-28] MEDS ORDERED: NOREPINE BITAR* 4 MG/4 ML AMP 4 MG in D5W(*) 250 ML BAG 246 ML IV PRN (19:45)
[2018-10-28] MEDS ORDERED: NS(*) 0.9% 500 ML BAG 500 ML ONE (20:06)
--- NOTE | 2018-10-28 20:09 | Miscellaneous Provider Note ---
Miscellaneous Provider Note Note Item Value Date Time Lactate 1.9 mmol/L 10/28/18 1753 Whole Blood Glucose 94 mg/DL 10/28/18 1659 Urine Leukocyte Esterase Moderate H 10/28/18 1503 Urine RBC 2 /HPF 10/28/18 1503 Urine WBC 160 /HPF 10/28/18 1503 Urine Squamous Epithelial Cells Few /LPF 10/28/18 1503 Urine Bacteria Negative /HPF 10/28/18 1503 Prothromb Time International Ratio 3.28 10/28/[address] of LLE - 1. Circumferential skin thickening and subcutaneous edema involving the left lower leg. This is most pronounced within the distal third of the lower leg extending about the ankle and the included foot. This would be consistent with the stated history of cellulitis. No evidence of soft tissue abscess, fluid collection or soft tissue gas. 2. Fatty atrophy of the medial head of the gastrocnemius muscle as well as the distal soleus musculature within the posterior compartment. Appearance would favor chronic denervation change. This could also be sequela of an old injury. Correlate clinically. While finishing NS fluid bolus, her SBP started decreasing into the 70's. She was sleeping but would awaken easily. She has been moved down to the ICU and will be started on Levophed. She is a DNR/DNI. She has been started on hydrocortisone 100mg IV q8osobx. I notified her grandson Jermaine who is the pharmaceutical salesperson per records. CRISTOFER CORDOBA MD Oct 28, 2018 20:09
[2018-10-28] MEDS: LR(*) 1000 ML BAG 1,000 ML IV PRN (20:21)
[2018-10-29] VITALS (86 sets, daily range): BP systolic 66–126; BP diastolic 38–97
[2018-10-29] MEDS ORDERED: NOREPINEPH BITAR 4 MG/4 ML AMP ONE (01:05)
[2018-10-29] MEDS ORDERED: D5W(*) 500 ML BAG 500 ML IV ONE (01:05)
[2018-10-29] MEDS: ACETAMINOPHEN(*)1000 MG/100 ML 100 ML IVPB PRN (01:13)
[2018-10-29] MEDS: LR(*) 1000 ML BAG 1,000 ML IV PRN (01:19)
[2018-10-29] MEDS: HYDROCORTISONE 100 MG/2 ML IVP SCH ×2 (03:15→16:11)
[2018-10-29] MEDS: AMPICILLIN/SULBACT (*) 3 GM VL 3 GM in NS(*) 0.9% 100 ML MINI-BAG 100 ML IVPB SCH ×4 (04:37→22:36)
[2018-10-29 05:06] LABS: PLATELET COUNT, AUTOMATED 246 K/uL (150-450)
[2018-10-29 05:32] LABS: INR 3.73
[2018-10-29] MEDS: LEVOTHYROXINE SOD 0.112 MG TAB PO SCH (06:01)
[2018-10-29] MEDS: INSULIN HUM LISPRO 100 UN/ML 3 ML VIAL SUBQ PRN ×3 (08:35→21:20)
[2018-10-29] MEDS: PANTOPRAZOLE SOD 40 MG TABEC PO SCH (08:35)
--- NOTE | 2018-10-29 08:36 | Hospitalist Progress Note ---
Subjective Progress Notes Subjective She is awake and alert. She reports feeling much improved. Physical Exam Vital Signs Date Time Temp Pulse Resp B/P (MAP) Pulse Ox O2 Delivery O2 Flow Rate FiO2 10/29/18 06:30 71 20 104/53 (70) 93 Nasal Cannula 2.0 10/29/18 03:45 98.2 Intake and Output 10/29/18 07:04 Intake Total 4335 ml Output Total 2100 ml Balance 2235 ml Intake IV Total 4335 ml Output Urine Total 2100 ml General Appearance: Alert, Awake Cardiovascular: Regular Rate and Rhythm Respiratory: Clear to Auscultation GI: Soft and Non-Tender Extremities: Warm Integumentary: Other (Dramatic chronic venous stasis changes of both LE below the knees. LLE has significantly more edema with a few small open areas with serous drainage. Diffuse tenderness with palpation of LLE. She has diminished ROM through ankle, but denies pain.) Psych: Alert & Oriented X3 Result Diagram: 10/29/1845310/29/18453 Assessment and Plan Problems: (1) Sepsis Status: Acute Assessment & Plan: She presented with reported mental status changes, an elevated lactate, leukocytosis, and tachycardia. She appears to have LLE cell ulitis and may have UTI. She was given Ancef in the ER before the blood cultures were done because of concern about severity of infection. She is already growing GNR in her blood cultures. She is now on IV Unasyn and vancomycin. She has required Levophed for BP support as well. She had a PICC line placed yesterday. CT scan of LLE was negative for necrotic changes/abscess. Repeat lactates are now normal. No changes at this time. (2) Cellulitis Status: Acute Assessment & Plan: She reported she had bilateral leg pain for 3 days prior to admission. The LLE has ecchymosis/erythema/swelling/extreme tenderness from the foot to knee. The erythema appeared to have extended above the knee (boundaries marked at the time of initial exam). There was an isolated erythematous area on the posterior/lateral thigh. CT negative for evidence of necrotizing fascitis. She is improved clinically. She is currently on IV Unasyn and Vancomycin. (3) Type II diabetes mellitus Status: Chronic Assessment & Plan: Chronically on glimepiride (will be held for now). She is on AC and HS glucose monitoring with SSI level 2 to cover. (4) History of pulmonary embolism Status: Chronic Assessment & Plan: She is chronically on warfarin and reportedly has an IVC filter. INR ordered and will check daily (up slightly today to 3.73). Will restart warfarin based on INR. (5) Chronic edema Status: Chronic Assessment & Plan: Followed by Dr. Wetzel. Lasix was recently increased 40mg to 80mg daily (and continued on spironolactone). BNP and Troponin in normal range. Holding Lasix and spironolactone at this time. (6) Overactive bladder Status: Chronic Assessment & Plan: Holding solifenacin for now. (7) Carotid stenosis Status: Chronic Assessment & Plan: Holding chronic ASA and simvastatin. (8) Grade II diastolic dysfunction Status: Chronic Exam Sepsis Risk: Severe Sepsis Risk Problem Qualifiers (1) Sepsis: Sepsis type: sepsis due to unspecified organism Sepsis acute organ dysfunction status: without acute organ dysfunction Qualified Codes: A41.9 - Sepsis, unspecified organism (2) Cellulitis: Site of cellulitis: extremity Site of cellulitis of extremity: lower extremity Laterality: left Qualified Codes: L03.116 - Cellulitis of left lower limb HAYLEY BONNER MD Oct 29, 2018 08:36
[2018-10-29] MEDS ORDERED: KCL (*) 20 MEQ/100 ML PREMIX 100 ML IV ONE (08:40)
[2018-10-29] MEDS: ACETAMINOPHEN 325 MG TAB PO PRN ×3 (08:57→23:43)
--- NOTE | 2018-10-29 09:40 | NUR ---
Physical Therapy Impression Non-excisional debridement completed with the use of tweezers to a depth of dermis in order to remove yellow slough and non-viable tissue. Wound cleansed with sterile saline and periwound skin of entire lower leg treated with vasaline moisture barrier with aloe, vit A&D. Edema is already notably improved according to hospitalist report and wound is demonstrating decreased weeping. Pt encouraged to return to previous education for edema and venous insufficiency management, which was reviewed, to include monitoring salt intake, elevation of LE's throughout the day and preferably at night as well, taking medication as prescribed and wearing compression stockings for B) lower legs with donning after shower and lotion application. Pt notes that assisted living staff can facilitate this as well. No further debridement indicated and B) LE's left open to air. Compression wrap not indicated at this time, as weeping is currently controlled and L) LE is painful to touch. PT will certainly consult further if changes develop. Physical Therapy Goals Patient's Goals
[2018-10-29] MEDS: VANCOMYCIN(*) 1 GM VIAL 1 GM, VANCOMYCIN (*) 0.5 GM VIAL 0.25 GM in NS(*) 0.9% 250 ML B... IVPB SCH ×2 (10:15→21:17)
[2018-10-29] MEDS: KCL IV SCH ×2 (10:16→21:16)
[2018-10-29] MEDS: LR IV SCH ×2 (10:16→21:16)
--- NOTE | 2018-10-29 15:45 | Medical Nutrition Therapy ---
Nutrition Anthropometrics Height (Inches): 68.00 Height (Calculated Centimeters: 172.252664 Weight (Pounds): 168 Weight (Calculated Kilograms): 76.430 BMI: 25.6 Donald Nutrition Score: Adequate Donald Nutrition Risk Score: 15 Dietary Referral Nutrition Risk Factors: Nutrition Risk Comment: Physical Findings Physical Appearance: Overweight BMI 25-29 Skin Appearance Skin Appearance: Edema Edema Location Modifier: Both Edema Location: Lower Extremity Type of Edema: Degree of Edema: 2+ Gastrointestinal Symptoms GI Symtoms: Tube Present: Bowel Sounds: Recent Bowel Pattern: Stool Characteristics: Nutritional Diagnosis Nutritional Risk Acuity 2: Sepsis Nutritional Risk Acuity 3: Fair Appetite Nutritional Risk Acuity 4: Modified Diet Past Medical History: Hypothyroid, pulmonary embolism, IVC filter, overactive bladder, hyperlipidemia, T2DM, HTN, hysterectomy, laminectomy, tonsillectomy, orthopedic surgeries x 2 Nutritional Acuity: 2-Moderate Nutrition Diagnosis: Increased Nutrient Needs Nutrition Etiology: Physiological Causes Nutrition Problem/Etiology/Sym: AEB sepsis Energy Requirement: 1864 (MSJ) Protein Requirement: 91.2 (1.2g/kg) Fluid Requirement: 1900 (5850-6293; 25ml/kg/day-30ml/kg/day) Diet Type: Diabetic Nutrition Intervention: Cont diet as ordered Drug: Warfarin Do Not Serve Any of the Follow: Broccoli, Brussel Sprouts, Spinach, [place] Lettuce, Cranberry Juice Diet Comment To RSA: Offer Boost or Ensure Nutrition Monitoring & Eval Nutrition Goals: Eat 75-100% Meal RD Patient Assessment Time: [address] Assessment Type: RD Assessment Patient Nutrition Acuity: 2-Moderate Follow Up Date: Oct 31, 2018 Nutritional Comment: 10/29/2018: Pt admitted for cellulitis, but presents with chronic edema, diabetes, and sepsis. Pt does not report any N&V. Laboratory values indicate: high blood glucose of 168, high WBC of 15, low RBC of 4, and low HGB of 11.7. Pt reported taking Lasix and Warfarin, but medications are on hold. A PICC line was placed as part of the plan to help with the treatment of sepsis. Meal intake has not been reported currently, but a supplement is recommended to help with the increased caloric needs. Will continue to monitor weight, laboratory values, and intake. NICOLE BARRIOS Oct 29, 2018 12:47
[2018-10-29] MEDS ORDERED: VANCOMYCIN(*) 1 GM VIAL 1 GM, VANCOMYCIN (*) 0.5 GM VIAL 0.25 GM in NS(*) 0.9% 250 ML B... IVPB SCH (17:00)
--- NOTE | 2018-10-29 19:56 | Antimicrobial Stewardship ---
Antimicrobial Time Out Antimicrobial Stewardship MD Service: Hospitalist Indications: Cellulitis Antimicrobial Used Unasyn 3g and Vanco IV Start Date: Oct 28, 2018 Culture Results: Yes (gram neg growth - pending sens.) Eligible for PO Conversion Eligable for PO Conversion: No Reviewed with Provider Reviewed w/ Provider on Rounds: No Comments Comments Patient admitted for cellulitis/sepsis and has gram neg organism growing in urine and blood. Patient covered with broad abx until MRSA is ruled out as the cellulitis was purulent. Patient improving clinically and can evaluate for narrowed therapy with continued improvement. JAHAIRA RAMÍREZ Oct 29, 2018 19:56
[2018-10-30] VITALS (86 sets, daily range): BP systolic 84–161; BP diastolic 35–105
[2018-10-30] MEDS: AMPICILLIN/SULBACT (*) 3 GM VL 3 GM in NS(*) 0.9% 100 ML MINI-BAG 100 ML IVPB SCH ×4 (03:25→22:00)
[2018-10-30] MEDS: HYDROCORTISONE 100 MG/2 ML IVP SCH ×2 (03:25→15:22)
[2018-10-30 05:09] LABS: PLATELET COUNT, AUTOMATED 234 K/uL (150-450)
[2018-10-30 05:14] LABS: INR 3.51
[2018-10-30] MEDS: LEVOTHYROXINE SOD 0.112 MG TAB PO SCH (06:04)
[2018-10-30] MEDS: ACETAMINOPHEN 325 MG TAB PO PRN ×3 (06:04→22:19)
[2018-10-30] MEDS: KCL (*) 20 MEQ/100 ML PREMIX 100 ML IV SCH ×2 (08:51→11:37)
[2018-10-30] MEDS: PANTOPRAZOLE SOD 40 MG TABEC PO SCH (08:51)
--- NOTE | 2018-10-30 08:53 | Hospitalist Progress Note ---
Subjective Progress Notes Subjective She reports continued bilateral leg pain. Still on Levophed. Physical Exam Vital Signs Date Time Temp Pulse Resp B/P (MAP) Pulse Ox O2 Delivery O2 Flow Rate FiO2 10/30/18 08:34 73 10/30/18 08:30 16 114/59 (77) 95 10/30/18 08:00 98.0 Nasal Cannula 2.0 Intake and Output 10/30/18 07:04 Intake Total 6270 ml Output Total 1310 ml Balance 4960 ml Intake Oral 2760 ml IV Total 3510 ml Output Urine Total 1310 ml # Bowel Movements 2 General Appearance: Alert, Awake, No Acute Distress Cardiovascular: Regular Rate and Rhythm Respiratory: Clear to Auscultation Extremities: Edema (2+ in legs bilaterally. Much pain with movement of legs bilaterally. Erythema on left leg is within the margins and is now similar to the other leg.) Result Diagram: 10/30/1844310/30/18443 Assessment and Plan Problems: (1) Sepsis Status: Acute Assessment & Plan: She presented with reported mental status changes, an elevated lactate, leukocytosis, and tachycardia. She appears to have LLE cellulitis and may have UTI. She was given Ancef in the ER before the blood cultures were done because of concern about severity of infection. She is jay wing GNR in her blood cultures. She is now on IV Unasyn and vancomycin. She has required Levophed for BP support as well. Weaning it down. She had a PICC line placed on 10/28. CT scan of LLE was negative for necrotic changes/abscess. Repeat lactates are now normal. No changes at this time. (2) Cellulitis Status: Acute Assessment & Plan: She reported she had bilateral leg pain for 3 days prior to admission. The LLE has ecchymosis/erythema/swelling/extreme tenderness from the foot to knee. The erythema appeared to have extended above the knee (boundaries marked at the time of initial exam). There was an isolated erythematous area on the posterior/lateral thigh. CT negative for evidence of necrotizing fascitis. The erythema is now within the boundaries and is similar to the other leg. Wound care is following some skin breakdown on the left. She is currently on IV Unasyn and Vancomycin. (3) Type II diabetes mellitus Status: Chronic Assessment & Plan: Chronically on glimepiride (will be held for now). She is on AC and HS glucose monitoring with SSI level 2 to cover. (4) History of pulmonary embolism Status: Chronic Assessment & Plan: She is chronically on warfarin and reportedly has an IVC filter. INR ordered and will check daily (up slightly today to 3.73). Will restart warfarin based on INR. (5) Chronic edema Status: Chronic Assessment & Plan: Followed by Dr. Wetzel. Lasix was recently increased 40mg to 80mg daily (and continued on spironolactone). BNP and Troponin in normal range. Holding Lasix and spironolactone at this time. When off Levophed, will try to diurese. (6) Overactive bladder Status: Chronic Assessment & Plan: Holding solifenacin for now. (7) Carotid stenosis Status: Chronic Assessment & Plan: Holding chronic ASA and simvastatin. (8) Grade II diastolic dysfunction Status: Chronic Exam Sepsis Risk: No Definite Risk Problem Qualifiers (1) Sepsis: Sepsis type: sepsis due to unspecified organism Sepsis acute organ dysfunction status: without acute organ dysfunction Qualified Codes: A41.9 - Sepsis, unspecified organism (2) Cellulitis: Site of cellulitis: extremity Site of cellulitis of extremity: lower extremity Laterality: left Qualified Codes: L03.116 - Cellulitis of left low er limb CRISTOFER CORDOBA MD Oct 30, 2018 08:53
[2018-10-30] MEDS: INSULIN HUM LISPRO 100 UN/ML 3 ML VIAL SUBQ PRN ×3 (08:59→21:05)
[2018-10-30] MEDS: VANCOMYCIN(*) 1 GM VIAL 1 GM in NS(*) 0.9% 250 ML BAG 250 ML IVPB SCH ×2 (09:17→21:04)
--- NOTE | 2018-10-30 09:51 | Pharmacy Note ---
Vancomycin Management Note Vanco Dosing Note Vanco trough 22.48 on 10/30/18. Reduced dose to 1 gm IV q12h with trough to be drawn on 10/31/18 at 0800. BERTO DIEGO Oct 30, 2018 09:51
[2018-10-30] MEDS ORDERED: LR IV SCH (15:30)
[2018-10-30] MEDS ORDERED: KCL IV SCH (15:30)
[2018-10-30] MEDS: traMADol 50 MG TAB PO PRN (17:58)
[2018-10-30] MEDS: MELATONIN 3 MG TAB PO SCH (21:04)
[2018-10-30] MEDS ORDERED: NOREPINE BITAR* 4 MG/4 ML AMP 4 MG in D5W(*) 250 ML BAG 246 ML IV PRN (22:30)
[2018-10-30] MEDS ORDERED: LEVOPHED KIT (*) 1 IVSOL 1 KIT IV ONE (22:45)
[2018-10-30] MEDS ORDERED: NS(*) 0.9% 500 ML BAG 500 ML ONE (22:53)
[2018-10-31] VITALS (42 sets, daily range): BP systolic 94–132; BP diastolic 37–98
[2018-10-31] MEDS: HYDROCORTISONE 100 MG/2 ML IVP SCH (03:26)
[2018-10-31] MEDS: AMPICILLIN/SULBACT (*) 3 GM VL 3 GM in NS(*) 0.9% 100 ML MINI-BAG 100 ML IVPB SCH ×2 (03:49→10:36)
[2018-10-31 04:55] LABS: PLATELET COUNT, AUTOMATED 248 K/uL (150-450)
[2018-10-31 05:52] LABS: INR 2.87
[2018-10-31] MEDS: LEVOTHYROXINE SOD 0.112 MG TAB PO SCH (06:25)
[2018-10-31] MEDS: PANTOPRAZOLE SOD 40 MG TABEC PO SCH (08:22)
[2018-10-31] MEDS: INSULIN HUM LISPRO 100 UN/ML 3 ML VIAL SUBQ PRN ×2 (08:22→11:36)
[2018-10-31] MEDS: VANCOMYCIN(*) 1 GM VIAL 1 GM in NS(*) 0.9% 250 ML BAG 250 ML IVPB SCH (09:08)
[2018-10-31] MEDS: ACETAMINOPHEN 325 MG TAB PO PRN ×2 (09:12→15:25)
[2018-10-31] MEDS: traMADol 50 MG TAB PO PRN ×2 (09:12→15:24)
--- NOTE | 2018-10-31 09:23 | NUR ---
Occupational Therapy Impression OT evaluation completed. Pt. would benefit from OT services 5x/ week to increase independence with ADL's. Pt. may need to d/c to [facility] subacute rehab/ placement. Occupational Therapy Goals 1. Pt. to perform dressing activities with Mod A. 2. Pt.to perform showering activities with Mod A. 3. Pt. to peform toileting activities with Min A. 4. Pt. to perform grooming/ hygiene with BLANK. Patient's Goal
--- NOTE | 2018-10-31 14:15 | Hospitalist Progress Note ---
Subjective Progress Notes Subjective 88F admitted for sepsis. TEODORO overnight, reports continued pain in leg which is severe and "in the bone". She has pain with even light touch to the LLE. Patient Complains of: Cardiovascular: No: Chest Pain Gastrointestinal: No Nausea, No Vomiting Musculoskeletal: Pain Physical Exam Vital Signs Date Time Temp Pulse Resp B/P (MAP) Pulse Ox O2 Delivery O2 Flow Rate FiO2 10/31/18 13:00 80 21 132/64 (86) 95 Nasal Cannula 2.0 10/31/18 11:30 97.9 Intake and Output 10/31/18 07:04 Intake Total 2624.4 ml Output Total 1220 ml Balance 1404.4 ml Intake Oral 930 ml IV Total 1694.4 ml Output Urine Total 1220 ml # Bowel Movements 3 General Appearance: Alert, Awake, No Acute Distress Neuro: No Gross deficits Cardiovascular: Normal Rhythm & Peripheral Pulses Respiratory: No Respiratory Distress GI: Soft and Non-Tender Extremities: Warm, Pulses, Perfused, Edema (severe to above knee b/l. Venous stasis changes b/l le) Result Diagram: 10/31/18 0435 10/31/18 0435 Assessment and Plan Problems: (1) Sepsis Status: Acute Assessment & Plan: She presented with reported mental status changes, an elevated lactate, leukocytosis, and tachycardia. She appears to have LLE cellulitis. She was given Ancef in the ER before the blood cultures were done because of concern about severity of infection. She is growing Morganella mor ganii in her blood cultures. She is off levophed and BP doing well. She had a PICC line placed on 10/28. CT scan of LLE was negative for necrotic changes/abscess. Repeat lactates are now normal. Unasyn and vancomycin were discontinued based on C&S data. Ceftriaxone started. (2) Cellulitis Status: Acute Assessment & Plan: She reported she had bilateral leg pain for 3 days prior to admission. The LLE has ecchymosis/erythema/swelling/extreme tenderness from the foot to knee. The erythema appeared to have extended above the knee (boundaries marked at the time of initial exam). There was an isolated erythematous area on the posterior/lateral thigh. CT negative for evidence of necrotizing fascitis. The erythema is now within the boundaries and is similar to the other leg. Wound care is following some skin breakdown on the left. (3) Type II diabetes mellitus Status: Chronic Assessment & Plan: Chronically on glimepiride (will be held for now). She is o n AC and HS glucose monitoring with SSI level 2 to cover. (4) History of pulmonary embolism Status: Chronic Assessment & Plan: She is chronically on warfarin and reportedly has an IVC filter. Will restart warfarin based on INR. (5) Chronic edema Status: Chronic Assessment & Plan: Followed by Dr. Wetzel. Lasix was recently increased 40mg to 80mg daily (and continued on spironolactone). BNP and Troponin in normal range. Holding Lasix and spironolactone at this time. (6) Overactive bladder Status: Chronic Assessment & Plan: Holding solifenacin for now. (7) Carotid stenosis Status: Chronic Assessment & Plan: Chronic ASA and simvastatin. (8) Grade II diastolic dysfunction Status: Chronic Exam Sepsis Risk: No Definite Risk Problem Qualifiers (1) Sepsis: Sepsis type: sepsis due to unspecified organism Sepsis acute organ dysfunction status: without acute organ dysfunction Qualified Codes: A41.9 - Sepsis, unspecified organism (2) Cellulitis: Site of cellulitis: extremity Site of cellulitis of extremity: lower extremity Laterality: left Qualified Codes: L03.116 - Cellulitis of left lower limb TY HARP DO Oct 31, 2018 14:15
[2018-10-31] MEDS: CEFTRIAXONE IVP SCH (14:39)
[2018-10-31] MEDS: WATER STERILE IVP SCH (14:39)
--- NOTE | 2018-10-31 15:43 | Medical Nutrition Therapy ---
Nutrition Anthropometrics Height (Inches): 68.00 Height (Calculated Centimeters: 172.096030 Weight (Pounds): 177 Weight (Calculated Kilograms): 80.286 BMI: 25.6 Donald Nutrition Score: Adequate Donald Nutrition Risk Score: 15 Dietary Referral Nutrition Risk Factors: Nutrition Risk Comment: Physical Findings Physical Appearance: Overweight BMI 25-29 Skin Appearance Skin Appearance: Edema Edema Location Modifier: Both Edema Location: Lower Extremity Type of Edema: Degree of Edema: 2+ Gastrointestinal Symptoms GI Symtoms: Tube Present: Bowel Sounds: Hypoactive Recent Bowel Pattern: Stool Characteristics: Nutritional Diagnosis Nutritional Risk Acuity 1: No Appetite Nutritional Risk Acuity 2: Sepsis Past Medical History: Hypothyroid, pulmonary embolism, IVC filter, overactive bladder, hyperlipidemia, T2DM, HTN, hysterectomy, laminectomy, tonsillectomy, orthopedic surgeries x 2 Nutritional Acuity: 1-High Nutrition Diagnosis: Increased Nutrient Needs Nutrition Etiology: Physiological Causes Nutrition Problem/Etiology/Sym: AEB sepsis Energy Requirement: 1864 (MSJ) Protein Requirement: 91.2 (1.2g/kg) Fluid Requirement: 1900 (0470-0800; 25ml/kg/day-30ml/kg/day) Diet Type: Diabetic Nutrition Intervention: Cont diet as ordered Drug: Warfarin Do Not Serve Any of the Follow: Broccoli, Brussel Sprouts, Spinach, [place] Lettuce, Cranberry Juice Diet Comment To RSA: Offer Boost or Ensure Nutrition Monitoring & Eval Nutrition Goals: Eat 75-100% Meal Nutrition Follow-Up: Poor Intake Nutrition Monitoring: Weight, intake RD Patient Assessment Time: [address] Assessment Type: RD Re-Assessment Patient Nutrition Acuity: 2-Moderate Follow Up Date: Nov 03, 2018 Nutritional Comment: 10/29/2018: Pt admitted for cellulitis, but presents with chronic edema, diabetes, and sepsis. Pt does not report any N&V. Laboratory values indicate: high blood glucose of 168, high WBC of 15, low RBC of 4, and low HGB of 11.7. Pt reported taking Lasix and Warfarin, but medications are on hold. A PICC line was placed as part of the plan to help with the treatment of sepsis. Meal intake has not been reported currently, but a supplement is recommended to help with the increased caloric needs. Will continue to monitor weight, laboratory values, and intake. 10/31/2018: Pt continues to have sepsis, per MD note. Pt intake has been poor with an average consumption percentage of 47%. Pt laboratory values indicate: low chloride at 109, high random glucose at 156, low calcium at 7.4, low albumin at 2.3, high WBC at 14.6, low RBC at 3.69, low Hgb at 10.4, and low Hct at 32.5. A supplement is recommended to help meet energy needs. Visited with pt to discuss intake and poor appetite. Pt said that she has a decreased appetite due to her age. Recommended drinking boost or ensure to meet caloric needs. Oumou also suggested small frequent meals to help with early satiety. Pt said that she enjoys the meals provided, especially the potato soup, but has a hard time finishing her meals. Will continue to monitor pt for weight loss, intake, and laboratory values. - NICOLE WIGGINS Oct 31, 2018 09:22
--- NOTE | 2018-10-31 16:34 | NUR ---
Physical Therapy Impression PT eval complete. Pt currently requires Mod A x2 for supine<>sit transfers and Min-Mod A x2 for stand pivot transfers bed<>commode. Pt unable to ambulate. Recommend long-term rehab at this time. Physical Therapy Goals 1. SBA bed mobility. 2. SBA transfers. 3. SBA gait x 150' with RW. Patient's Goals
[2018-10-31] MEDS: MELATONIN 3 MG TAB PO SCH (21:19)
[2018-10-31] MEDS: SIMVASTATIN 40 MG TAB PO SCH (21:19)
[2018-11-01] MEDS: traMADol 50 MG TAB PO PRN ×4 (02:27→22:00)
[2018-11-01] MEDS: ACETAMINOPHEN 325 MG TAB PO PRN ×3 (02:27→23:29)
[2018-11-01 02:29] VITALS: BP 104/51
[2018-11-01 05:10] LABS: INR 2.61
[2018-11-01 05:17] LABS: PLATELET COUNT, AUTOMATED 231 K/uL (150-450)
[2018-11-01] MEDS: LEVOTHYROXINE SOD 0.112 MG TAB PO SCH (06:15)
[2018-11-01 07:32] VITALS: BP 97/48
[2018-11-01] MEDS: PANTOPRAZOLE SOD 40 MG TABEC PO SCH (09:09)
[2018-11-01] MEDS: ASPIRIN 81 MG ENTERIC COATED PO SCH (09:09)
--- NOTE | 2018-11-01 09:41 | Hospitalist Progress Note ---
Subjective Progress Notes Subjective This patient was admitted for cellulitis. She had no acute changes overnight. Patient Complains of: Cardiovascular: No: Chest Pain Respiratory: No: Shortness of Breath Physical Exam Vital Signs Date Time Temp Pulse Resp B/P (MAP) Pulse Ox O2 Delivery O2 Flow Rate FiO2 11/01/18 08:30 93 Nasal Cannula 2.0 11/01/18 07:32 97.9 71 18 97/48 (64) Intake and Output 11/01/18 07:04 Intake Total 1785.4 ml Output Total 655 ml Balance 1130.4 ml Intake Oral 1350 ml IV Total 435.4 ml Output Urine Total 655 ml # Bowel Movements 2 Cardiovascular: Regular Rate and Rhythm Respiratory: Clear to Auscultation Extremities: Other (Bilateral edema of the legs. Bilateral purple discoloration of the legs. Pulses present.) Result Diagram: 11/01/1844411/01/18444 Assessment and Plan Problems: (1) Cellulitis Status: Acute Assessment & Plan: She reported she had bilateral leg pain for 3 days prior to admission and continues to complain of bilateral leg pain, which is worse on the left. Her cultures grew Morganella. She is on antibiotics as below. (2) Septic shock Assessment & Plan: She did have an elevated WBC and lactate. She also was hypotensive and required a norepinephrine infusion. She has now weaned from vasopressor support and her labs are normalizing. A CT scan showed findings consistent with cellulitis, but no evidence of osteomyelitis. She remains on ceftriaxone. An echocardiogram is pending for today. (3) Type II diabetes mellitus Status: Chronic Assessment & Plan: Chronically on glimepiride (will be held for now). She is on AC and HS glucose monitoring with SSI level 2 to cover. (4) History of pulmonary embolism Status: Chronic Assessment & Plan: She is chronically on warfarin and reportedly has an IVC filter. Her INR was elevated at admission, and warfarin was on hold. It is scheduled to restart tomorrow. (5) Chronic edema Status: Chronic Assessment & Plan: She is on chronic treatment with Lasix, which has been on hold secondary to her sepsis and hypotension. (6) Overactive bladder Status: Chronic Assessment & Plan: Holding solifenacin for now. (7) Carotid stenosis Status: Chronic Assessment & Plan: She is on chronic treatment with aspirin and simvastatin. (8) Grade II diastolic dysfunction Status: Chronic Exam Sepsis Risk: No Definite Risk Problem Qualifiers (1) Cellulitis: Site of cellulitis: extremity Site of cellulitis of extremity: lower extremity Laterality: left Qualified Codes: L03.116 - Cellulitis of left lower limb BASILIO MENDOZA DO Nov 01, 2018 09:41
[2018-11-01 12:02] VITALS: BP 109/61
[2018-11-01] MEDS: CEFTRIAXONE IVP SCH (14:17)
[2018-11-01] MEDS: WATER STERILE IVP SCH (14:17)
--- NOTE | 2018-11-01 15:21 | NUR ---
Physical Therapy Impression PT assisted with transport from ICU to Med/Surg unit. Pt just completed stand/pivot transfer to/from [facility] with nursing requiring 2 person Max assist. Pt notes extreme pain in L) LE still. PT provided inspection of B) LE's. Both appear significantly more edematous that during wound eval completed last week. Pt now with weight gain as well and ailyn hose stockings applied earlier today by nursing. Physical Therapy Goals 1. SBA bed mobility. 2. SBA transfers. 3. SBA gait x 150' with RW. Patient's Goals
[2018-11-01 15:37] VITALS: BP 136/53
[2018-11-01] MEDS: SIMVASTATIN 40 MG TAB PO SCH (20:31)
[2018-11-01] MEDS: MELATONIN 3 MG TAB PO SCH (20:31)
[2018-11-01 20:36] VITALS: BP 119/59
[2018-11-01] MEDS ORDERED: METOPROLOL TART 5 MG/5 ML VIAL IVP ONE (22:40)
[2018-11-01 23:15] VITALS: BP 103/53
[2018-11-02 03:26] VITALS: BP 96/50
[2018-11-02] MEDS: traMADol 50 MG TAB PO PRN ×2 (05:37→18:52)
[2018-11-02] MEDS: LEVOTHYROXINE SOD 0.112 MG TAB PO SCH (06:27)
[2018-11-02 06:47] LABS: INR 1.76
[2018-11-02 07:43] VITALS: BP 113/67
[2018-11-02] MEDS: PANTOPRAZOLE SOD 40 MG TABEC PO SCH (09:00)
[2018-11-02] MEDS: ASPIRIN 81 MG ENTERIC COATED PO SCH (09:00)
[2018-11-02] MEDS: ACETAMINOPHEN 325 MG TAB PO PRN (09:05)
[2018-11-02] MEDS ORDERED: PROMETHAZINE 25 MG/ML 1 ML AMP IVP PRN (09:40)
--- NOTE | 2018-11-02 10:32 | Hospitalist Progress Note ---
Subjective Progress Notes Subjective She complains of pain in her left leg/foot. No fever. WBC count has normalized. Edema has lessened. Physical Exam Vital Signs Date Time Temp Pulse Resp B/P (MAP) Pulse Ox O2 Delivery O2 Flow Rate FiO2 11/02/18 07:43 98.6 80 14 113/67 (82) 95 Nasal Cannula 1.0 Intake and Output 11/02/18 07:04 Intake Total 890 ml Output Total 1250 ml Balance -360 ml Intake Oral 890 ml Output Urine Total 1250 ml General Appearance: Alert, Awake Extremities: Other (Dramatic venous stasis changes both LE below the knees. Left has somewhat more edema. Erythema has essentially resolved. She does report tenderness with virtually any palpation. Pedal pulses difficult to palpate due to ongoing edema, but cap refill appears acceptable.) Result Diagram: 11/01/1844411/01/18444 Assessment and Plan Problems: (1) Septic shock Assessment & Plan: She did have an elevated WBC and lactate. She also was hypotensive and required a norepinephrine infusion. She has now weaned from vasopressor support and her labs are normalizing. CT scan showed findings consistent with cellulitis, but no evidence of osteomyelitis/abscess. She re maxim on IV ceftriaxone. Echocardiogram final report is pending. (2) Cellulitis Status: Acute Assessment & Plan: She reported she had bilateral leg pain for 3 days prior to admission and continues to complain of bilateral leg pain, which is worse on the left. Her cultures grew Morganella species. She is on IV ceftriaxone as noted above. She is still having pain. Clinically, her leg looks much improved and her labs have also improved. We discussed repeat CT scan to evaluate for any developing problems, but she did not wish to pursue at this time. (3) Type II diabetes mellitus Status: Chronic Assessment & Plan: Chronically on glimepiride (currently being held). She is on AC and HS glucose monitoring with SSI level 2 to cover. (4) History of pulmonary embolism Status: Chronic Assessment & Plan: She is chronically on warfarin and reportedly has an IVC filter. Her INR was elevated at admission, and warfarin was on hold. It is scheduled to restart today. (5) Chronic edema Status: Chronic Assessment & Plan: She is on chronic treatment with Lasix, which has been on hold secondary to her sepsis and hypotension. (6) Overactive bladder Status: Chronic Assessment & Plan: Holding solifenacin for now. (7) Carotid stenosis Status: Chronic Assessment & Plan: She is on chronic treatment with aspirin and simvastatin. (8) Grade II diastolic dysfunction Status: Chronic Exam Sepsis Risk: No Definite Risk Problem Qualifiers (1) Cellulitis: Site of cellulitis: extremity Site of cellulitis of extremity: lower extremity Laterality: left Qualified Codes: L03.116 - Cellulitis of left lower limb HAYLEY BONNER MD Nov 02, 2018 10:32
[2018-11-02] MEDS: APAP/HYDROCODONE 325/5 TAB PO PRN ×2 (10:35→20:59)
[2018-11-02 11:38] VITALS: BP 108/50
[2018-11-02] MEDS ORDERED: WARFARIN SOD 3 MG TAB PO SCH (13:00)
[2018-11-02] MEDS: WATER STERILE IVP SCH (13:24)
[2018-11-02] MEDS: CEFTRIAXONE IVP SCH (13:24)
[2018-11-02 14:06] VITALS: BP 102/48
[2018-11-02 19:30] VITALS: BP 111/51
[2018-11-02] MEDS: INSULIN HUM LISPRO 100 UN/ML 3 ML VIAL SUBQ PRN (20:59)
[2018-11-02] MEDS: SIMVASTATIN 40 MG TAB PO SCH (20:59)
[2018-11-02] MEDS: MELATONIN 3 MG TAB PO SCH (20:59)
[2018-11-02 23:48] VITALS: BP 99/46
[2018-11-03 02:30] VITALS: BP 116/86
[2018-11-03 05:42] LABS: PLATELET COUNT, AUTOMATED 282 K/uL (150-450)
[2018-11-03 05:46] LABS: INR 1.57
[2018-11-03] MEDS: LEVOTHYROXINE SOD 0.112 MG TAB PO SCH (06:59)
[2018-11-03] MEDS: ASPIRIN 81 MG ENTERIC COATED PO SCH (08:36)
[2018-11-03] MEDS: traMADol 50 MG TAB PO PRN ×3 (08:37→20:28)
[2018-11-03] MEDS: PANTOPRAZOLE SOD 40 MG TABEC PO SCH (08:38)
[2018-11-03 10:11] VITALS: BP 114/52
--- NOTE | 2018-11-03 11:22 | Hospitalist Progress Note ---
Subjective Progress Notes Subjective TEODORO overnight, continues to have significant leg pain. Otherwise reports doing well. May be to high a level of care for spring per report, may need placement in SNF. Patient Complains of: Respiratory: No: Cough Gastrointestinal: No Nausea, No Vomiting Musculoskeletal: Pain Physical Exam Vital Signs Date Time Temp Pulse Resp B/P (MAP) Pulse Ox O2 Delivery O2 Flow Rate FiO2 11/03/18 10:11 98.3 80 20 114/52 (72) 94 Nasal Cannula 2.0 Intake and Output 11/03/18 07:04 Intake Total 236 ml Output Total 1975 ml Balance -1739 ml Intake Oral 236 ml Output Urine Total 1975 ml General Appearance: Alert, Awake, No Acute Distress, Afebrile Neuro: No Gross deficits Cardiovascular: Other (irregularly irregular) Respiratory: No Respiratory Distress GI: Soft and Non-Tender : Normal (+ Cheng) Extremities: Soft and Non Tender, Warm, Pulses, Perfused, Edema (with chronic venous stasis changes) Result Diagram: 11/03/1815 11/03/1815 Assessment and Plan Problems: (1) Septic shock Assessment & Plan: Resolved. She did have an elevated WBC and lactate. She also was hypotensive and required a norepinephrine infusion. CT scan showed findings consistent with cellulitis, but no evidence of osteomyelitis/abscess. She remains on IV ceftriaxone. (2) Cellulitis Status: Acute Assessment & Plan: She reported she had bilateral leg pain for 3 days prior to admission and continues to complain of bilateral leg pain, which is worse on the left. Her cultures grew Morganella species. She is on IV ceftriaxone as noted above. She is still having pain. Clinically, her leg looks much improved and her labs have also improved. We discussed repeat CT scan to evaluate for any developing problems, but she did not wish to pursue at this time. Repeat blood culture ordered. (3) Type II diabetes mellitus Status: Chronic Assessment & Plan: Chronically on glimepiride (currently being held). She is on AC and HS glucose monitoring with SSI level 2 to cover. (4) History of pulmonary embolism Status: Chronic Assessment & Plan: She is chronically on warfarin and reportedly has an IVC filter. Her INR was elevated at admission, and warfarin was on hold. Resumed warfarin on home dosing. (5) Chronic edema Status: Chronic Assessment & Plan: She is on chronic treatment with Lasix, which has been on hold secondary to her sepsis and hypotension. (6) Overactive bladder Status: Chronic Assessment & Plan: Holding solifenacin for now. (7) Carotid stenosis Status: Chronic Assessment & Plan: She is on chronic treatment with aspirin and simvastatin. (8) Grade II diastolic dysfunction Status: Chronic Exam Sepsis Risk: No Definite Risk Problem Qualifiers (1) Cellulitis: Site of cellulitis: extremity Site of cellulitis of extremity: lower extremity Laterality: left Qualified Codes: L03.116 - Cellulitis of left lower limb TY HARP DO Nov 03, 2018 11:22
--- NOTE | 2018-11-03 11:47 | NUR ---
Physical Therapy Impression Pt seen for PT tx. Pt declines participation today. Physical Therapy Goals 1. SBA bed mobility. 2. SBA transfers. 3. SBA gait x 150' with RW. Patient's Goals
[2018-11-03] MEDS ORDERED: WARFARIN SOD 3 MG TAB PO SCH (13:00)
[2018-11-03 13:03] VITALS: BP 139/60
[2018-11-03] MEDS: WARFARIN SOD 2.5 MG TAB 2.5 MG, WARFARIN SOD 2 MG TAB 2 MG PO SCH (13:30)
[2018-11-03] MEDS: CEFTRIAXONE IVP SCH (13:30)
[2018-11-03] MEDS: WATER STERILE IVP SCH (13:30)
--- NOTE | 2018-11-03 16:33 | Medical Nutrition Therapy ---
Nutrition Anthropometrics Height (Inches): 68.00 Height (Calculated Centimeters: 172.052548 Weight (Pounds): 185 Weight (Calculated Kilograms): 83.915 BMI: 25.6 Hx Weight Gain: Yes (25 lb in 6 days ) Donald Nutrition Score: Adequate Donald Nutrition Risk Score: 14 Dietary Referral Nutrition Risk Factors: Nutrition Risk Comment: Physical Findings Physical Appearance: Overweight BMI 25-29 Skin Appearance Skin Appearance: Edema Edema Location Modifier: Right Edema Location: Lower Extremity Type of Edema: Degree of Edema: 2+ Gastrointestinal Symptoms GI Symtoms: Tube Present: Bowel Sounds: Recent Bowel Pattern: Stool Characteristics: Nutritional Diagnosis Nutritional Risk Acuity 1: No Appetite Nutritional Risk Acuity 2: Sepsis Past Medical History: Hypothyroid, pulmonary embolism, IVC filter, overactive bladder, hyperlipidemia, T2DM, HTN, hysterectomy, laminectomy, tonsillectomy, orthopedic surgeries x 2 Nutritional Acuity: 1-High Nutrition Diagnosis: Increased Nutrient Needs Nutrition Etiology: Physiological Causes Nutrition Problem/Etiology/Sym: AEB sepsis Energy Requirement: 1864 (MSJ) Protein Requirement: 91.2 (1.2g/kg) Fluid Requirement: 1900 (1046-8761; 25ml/kg/day-30ml/kg/day) Diet Type: Diet as Tolerated [place]/REG Nutrition Intervention: Cont diet as ordered Drug: Warfarin Do Not Serve Any of the Follow: Broccoli, Brussel Sprouts, Spinach, [place] Lettuce, Cranberry Juice Diet Comment To RSA: Offer Boost or Ensure Nutrition Monitoring & Eval Nutrition Goals: Eat 75-100% Meal Nutrition Follow-Up: Poor Intake Nutrition Monitoring: intake, weight RD Patient Assessment Time: [address] Assessment Type: RD Re-Assessment Patient Nutrition Acuity: 2-Moderate Follow Up Date: Nov 03, 2018 Nutritional Comment: 10/29/2018: Pt admitted for cellulitis, but presents with chronic edema, diabetes, and sepsis. Pt does not report any N&V. Laboratory values indicate: high blood glucose of 168, high WBC of 15, low RBC of 4, and low HGB of 11.7. Pt reported taking Lasix and Warfarin, but medications are on hold. A PICC line was placed as part of the plan to help with the treatment of sepsis. Meal intake has not been reported currently, but a supplement is recommended to help with the increased caloric needs. Will continue to monitor weight, laboratory values, and intake. 10/31/2018: Pt continues to have sepsis, per MD note. Pt intake has been poor with an average consumption percentage of 47%. Pt laboratory values indicate: low chloride at 109, high random glucose at 156, low calcium at 7.4, low albumin at 2.3, high WBC at 14.6, low RBC at 3.69, low Hgb at 10.4, and low Hct at 32.5. A supplement is recommended to help meet energy needs. Visited with pt to discuss intake and poor appetite. Pt said that she has a decreased appetite due to her age. Recommended drinking boost or ensure to meet caloric needs. Oumou also suggested small frequent meals to help with early satiety. Pt said that she enjoys the meals provided, especially the potato soup, but has a hard time finishing her meals. Will continue to monitor pt for weight loss, intake, and laboratory values. - JOSH 11/03/2018: Per MD note, pt now has septic shock. According to care activity, pt has gained 25 pounds from 10/28-11/03. Pt has 2+ edema BLE which may explain weight gain. However, pt continues to have a poor appetite and not finish meals (average of 42% consumption of 6 meals). Pt not consuming supplement, or consuming minimal supplementation. Pt switched from ADA to [place]. Pt lab values indicate: low hgb of 9.9, low hct of 29.3, low RBC of 3.35, low sodium of 133, and low albumin of 2.3. Will continue to monitor pt intake and weight. - NICOLE WIGGINS Nov 03, 2018 09:51
--- NOTE | 2018-11-03 17:12 | Medical Nutrition Therapy ---
Nutrition Anthropometrics Height (Inches): 68.00 Height (Calculated Centimeters: 172.555020 Weight (Pounds): 185 Weight (Calculated Kilograms): 83.915 BMI: 25.6 Hx Weight Gain: Yes (25 lb in 6 days ) Donald Nutrition Score: Adequate Donald Nutrition Risk Score: 14 Dietary Referral Nutrition Risk Factors: Nutrition Risk Comment: Physical Findings Physical Appearance: Overweight BMI 25-29 Skin Appearance Skin Appearance: Edema Edema Location Modifier: Right Edema Location: Lower Extremity Type of Edema: Degree of Edema: 1+ Gastrointestinal Symptoms GI Symtoms: Tube Present: Bowel Sounds: Recent Bowel Pattern: Stool Characteristics: Nutritional Diagnosis Nutritional Risk Acuity 1: No Appetite Nutritional Risk Acuity 2: Sepsis Past Medical History: Hypothyroid, pulmonary embolism, IVC filter, overactive bladder, hyperlipidemia, T2DM, HTN, hysterectomy, laminectomy, tonsillectomy, orthopedic surgeries x 2 Nutritional Acuity: 1-High Nutrition Diagnosis: Increased Nutrient Needs Nutrition Etiology: Physiological Causes Nutrition Problem/Etiology/Sym: AEB sepsis Energy Requirement: 1864 (MSJ) Protein Requirement: 91.2 (1.2g/kg) Fluid Requirement: 1900 (7635-6753; 25ml/kg/day-30ml/kg/day) Diet Type: Diet as Tolerated [place]/REG Nutrition Intervention: Cont diet as ordered Drug: Warfarin Do Not Serve Any of the Follow: Broccoli, Brussel Sprouts, Spinach, [place] Lettuce, Cranberry Juice Diet Comment To RSA: Offer Boost or Ensure Nutrition Monitoring & Eval RD Patient Assessment Time: [address] Assessment Type: RD Re-Assessment Patient Nutrition Acuity: 2-Moderate Follow Up Date: Nov 07, 2018 Nutritional Comment: 10/29/2018: Pt admitted for cellulitis, but presents with chronic edema, diabetes, and sepsis. Pt does not report any N&V. Laboratory values indicate: high blood glucose of 168, high WBC of 15, low RBC of 4, and low HGB of 11.7. Pt reported taking Lasix and Warfarin, but medications are on hold. A PICC line was placed as part of the plan to help with the treatment of sepsis. Meal intake has not been reported currently, but a supplement is recommended to help with the increased caloric needs. Will continue to monitor weight, laboratory values, and intake. 10/31/2018: Pt continues to have sepsis, per MD note. Pt intake has been poor with an average consumption percentage of 47%. Pt laboratory values indicate: low chloride at 109, high random glucose at 156, low calcium at 7.4, low albumin at 2.3, high WBC at 14.6, low RBC at 3.69, low Hgb at 10.4, and low Hct at 32.5. A supplement is recommended to help meet energy needs. Visited with pt to discuss intake and poor appetite. Pt said that she has a decreased appetite due to her age. Recommended drinking boost or ensure to meet caloric needs. Oumou also suggested small frequent meals to help with early satiety. Pt said that she enjoys the meals provided, especially the potato soup, but has a hard time finishing her meals. Will continue to monitor pt for weight loss, intake, and laboratory values. - JOSH 11/03/2018: Per MD note, pt now has septic shock. According to care activity, pt has gained 25 pounds from 10/28-11/03. Pt has 2+ edema BLE which may explain weight gain. However, pt continues to have a poor appetite and not finish meals (average of 42% consumption of 6 meals). Pt not consuming supplement, or consuming minimal supplementation. Pt switched from ADA to [place]. Pt lab values indicate: low hgb of 9.9, low hct of 29.3, low RBC of 3.35, low sodium of 133, and low albumin of 2.3. Will continue to monitor pt intake and weight. - CIERRA VALLES Nov 03, 2018 17:12
[2018-11-03 17:15] VITALS: BP 139/66
[2018-11-03] MEDS: INSULIN HUM LISPRO 100 UN/ML 3 ML VIAL SUBQ PRN (17:34)
[2018-11-03 19:18] VITALS: BP 125/49
[2018-11-03] MEDS: SIMVASTATIN 40 MG TAB PO SCH (20:25)
[2018-11-03] MEDS: MELATONIN 3 MG TAB PO SCH (20:25)
[2018-11-03 23:26] VITALS: BP 119/57
[2018-11-04 02:31] VITALS: BP 137/73
[2018-11-04] MEDS: LEVOTHYROXINE SOD 0.112 MG TAB PO SCH (05:51)
[2018-11-04 06:04] LABS: INR 1.54
[2018-11-04 06:47] VITALS: BP 136/62
[2018-11-04] MEDS: traMADol 50 MG TAB PO PRN ×3 (07:38→20:41)
[2018-11-04] MEDS: PANTOPRAZOLE SOD 40 MG TABEC PO SCH (08:49)
[2018-11-04] MEDS: ASPIRIN 81 MG ENTERIC COATED PO SCH (08:50)
--- NOTE | 2018-11-04 09:06 | Hospitalist Progress Note ---
Subjective Progress Notes Subjective This patient was admitted for cellulitis. She had no acute changes overnight. Patient Complains of: Cardiovascular: No: Chest Pain Respiratory: No: Shortness of Breath Physical Exam Vital Signs Date Time Temp Pulse Resp B/P (MAP) Pulse Ox O2 Delivery O2 Flow Rate FiO2 11/04/18 07:35 96 Nasal Cannula 2.0 11/04/18 06:47 98.4 71 20 136/62 (86) Intake and Output 11/04/18 07:04 Intake Total 860 ml Output Total 1475 ml Balance -615 ml Intake Oral 860 ml Output Urine Total 1475 ml Cardiovascular: Regular Rate and Rhythm Respiratory: Clear to Auscultation Result Diagram: 11/03/1851411/03/18514 Assessment and Plan Problems: (1) Septic shock Assessment & Plan: She did have an elevated WBC and lactate. She also was hypotensive and required a norepinephrine infusion. She is now maintaining her blood pressure independently. (2) Cellulitis Status: Acute Assessment & Plan: She reported she had bilateral leg pain for 3 days prior to admission and continues to complain of bilateral leg pain, which is worse on the left. Her cultures grew Morganella species. She is on IV ceftriaxone as noted above. She is still having pain. Clinically, her leg looks much improved and her labs have also improved. We discussed repeat CT scan to evaluate for any developing problems, but she did not wish to pursue at this time. Repeat blood culture ordered. (3) Type II diabetes mellitus Status: Chronic Assessment & Plan: Chronically on glimepiride (currently being held). She is on AC and HS glucose monitoring with SSI level 2 to cover. (4) History of pulmonary embolism Status: Chronic Assessment & Plan: She is chronically on warfarin and reportedly has an IVC filter. Her INR was elevated at admission, and warfarin was on hold. Her warfarin was restarted on 11/02. Her INR is subtherapeutic, but her warfarin dose was just readjusted yesterday. (5) Chronic edema Status: Chronic Assessment & Plan: She is on chronic treatment with Lasix, which has been on hold secondary to her sepsis and hypotension. (6) Overactive bladder Status: Chronic Assessment & Plan: Holding solifenacin for now. (7) Carotid stenosis Status: Chronic Assessment & Plan: She is on chronic treatment with aspirin and simvastatin. (8) Grade II diastolic dysfunction Status: Chronic Exam Sepsis Risk: No Definite Risk Problem Qualifiers (1) Cellulitis: Site of cellulitis: extremity Site of cellulitis of extremity: lower extrem ity Laterality: left Qualified Codes: L03.116 - Cellulitis of left lower limb BASILIO MENDOZA DO Nov 04, 2018 09:06
[2018-11-04 10:26] VITALS: BP 139/61
[2018-11-04] MEDS ORDERED: WARFARIN SOD 3 MG TAB PO SCH (13:00)
[2018-11-04] MEDS: CEFTRIAXONE IVP SCH (13:35)
[2018-11-04] MEDS: WATER STERILE IVP SCH (13:35)
--- NOTE | 2018-11-04 15:08 | NUR ---
Physical Therapy Impression Pt able to move B LEs off bed for supine>sit but requires Mod A x2 for trunk. Pt reports less L LE pain with active movement vs. passive. Made several attempts to stand to RW, Pt unable. EZ lift utilized and Pt able to stand from an elevated bed with Mod A x2. Pt reports L LE pain throughout tx. Recommend long-term rehab. Physical Therapy Goals 1. SBA bed mobility. 2. SBA transfers. 3. SBA gait x 150' with RW. Patient's Goals
--- NOTE | 2018-11-04 15:44 | NUR ---
Occupational Therapy Impression Mod Ax2 bed mobility. Mod Ax2 sit<>stand with EZ lift. Recommend long-term rehab. Occupational Therapy Goals 1. Pt. to perform dressing activities with Mod A. 2. Pt.to perform showering activities with Mod A. 3. Pt. to peform toileting activities with Min A. 4. Pt. to perform grooming/ hygiene with BLANK. Patient's Goal
[2018-11-04 16:50] VITALS: BP 146/59
[2018-11-04 19:49] VITALS: BP 154/69
[2018-11-04] MEDS: MELATONIN 3 MG TAB PO SCH (20:41)
[2018-11-04] MEDS: SIMVASTATIN 40 MG TAB PO SCH (20:41)
[2018-11-04 23:32] VITALS: BP 122/70
[2018-11-05] MEDS: APAP/HYDROCODONE 325/5 TAB PO PRN ×2 (00:11→09:37)
[2018-11-05] MEDS: LEVOTHYROXINE SOD 0.112 MG TAB PO SCH (06:13)
[2018-11-05 06:15] VITALS: BP 137/65
[2018-11-05 06:24] LABS: INR 1.79
[2018-11-05 07:01] VITALS: BP 124/65
[2018-11-05] MEDS: PANTOPRAZOLE SOD 40 MG TABEC PO SCH (09:37)
[2018-11-05] MEDS: ASPIRIN 81 MG ENTERIC COATED PO SCH (09:37)
[2018-11-05] MEDS ORDERED: TRAM-420 PO (10:27)
[2018-11-05] MEDS ORDERED: CEFT1VIA63 IV (10:27)
--- NOTE | 2018-11-05 10:37 | Hospitalist Depart ---
Discharge Summary Reason for Hosp/Final Diag: (1) Septic shock Hospital Course & Plan: She did have an elevated WBC and lactate. She also was hypotensive and required a norepinephrine infusion. She is now maintaining her blood pressure independently. She will be transferred to [facility] in [place]. (2) Cellulitis Status: Acute Hospital Course & Plan: She reported she had bilateral leg pain for 3 days prior to admission and continues to complain of bilateral leg pain, which is worse on the left. Her cultures grew Morganella species. She is on IV ceft riaxone as noted above. She is still having pain. Clinically, her leg looks much improved and her labs have also improved. We discussed repeat CT scan to evaluate for any developing problems, but she did not wish to pursue at this time. Repeat blood cultures are negative. She will complete two weeks antibiotic treatment from negative culture date. (3) Type II diabetes mellitus Status: Chronic Hospital Course & Plan: Chronically on glimepiride (currently being held, but will now resume). She was on AC and HS glucose monitoring with SSI level 2 to cover. (4) History of pulmonary embolism Status: Chronic Hospital Course & Plan: She is chronically on warfarin and reportedly has an IVC filter. Her INR was elevated at admission, and warfarin was on hold. Her warfarin was restarted on 11/02. Her INR is subtherapeutic, but her warfarin dose was just readjusted 11/03. (5) Chronic edema Status: Chronic Hospital Course & Plan: She is on chronic treatment with Spironolactone, which has been on hold secondary to her sepsis and hypotension. But may now resume secondary to increasing blood pressures. (6) Overactive bladder Status: Chronic Hospital Course & Plan: Holding solifenacin for now, but will now resume. (7) Carotid stenosis Status: Chronic Hospital Course & Plan: She is on chronic treatment with aspirin and simvastatin. (8) Grade II diastolic dysfunction Status: Chronic Departure Latest Vital Signs Vital Signs 11/05/18 11/05/18 07:01 07:42 Temp 97.8 Pulse 68 Resp 20 B/P (MAP) 124/65 (84) Pulse Ox 94 O2 Delivery Nasal Cannula O2 Flow Rate 2.0 Weight (Pounds): 183 Weight (Ounces): 8.0 Result Diagram: 11/03/18 0515 11/03/18 0515 Condition: Improved Discharge: [facility] PT/OT Follow Up For: PT For Strengthening, OT For ADL's, PT Evaluation and Treat, OT Evaluation and Treat, Other Discharge Instructions Home Meds Active Scripts Tramadol Hcl (TRAMADOL HCL) 50 Mg Tablet, 50 MG PO Q6H PRN for PAIN, #20 TAB Prov:MAGDALENA HART [facility] 11/05/18 Ceftriaxone Sodium (CEFTRIAXONE) 1 Gm Vial, 1 GM IV Q24H, #12 VIAL Prov:MAGDALENA HART [facility] 11/05/18 Levothyroxine Sodium (LEVOTHYROXINE SODIUM) 0.112 Mg Tab, 1 TAB PO QDAY, #90 TAB 3 Refills Prov:TRENT HERNÁNDEZ MD 10/24/18 Pantoprazole Sodium (PANTOPRAZOLE SODIUM) 40 Mg Tablet.dr, 1 TAB PO DAILY, #90 CAP 3 Refills Prov:TRENT HERNÁNDEZ MD 10/23/18 Simvastatin (SIMVASTATIN) 40 Mg Tablet, 40 MG PO HS, #90 TAB 3 Refills Prov:TRENT HERNÁNDEZ MD 09/11/18 Diaper,Brief,Adult, Disposable (Depend Fit-Flex) 1 Each Each, EA EXT TID, #270 Depend underwear max ABS womens size large Prov:TRENT HERNÁNDEZ MD 07/23/18 Cholecalciferol (Vitamin D3) (VITAMIN D3) 1,000 Unit Tablet, 1 TAB PO DAILY, #90 TAB 4 Refills Prov:TRENT HERNÁNDEZ MD 07/23/18 Spironolactone (SPIRONOLACTONE) 25 Mg Tablet, 25 MG PO QDAY, #90 TAB 1 Refill Prov:TRENT HERNÁNDEZ MD 06/24/18 Solifenacin Succinate (VESICARE) 10 Mg Tablet, 1 TAB PO QDAY, #90 TAB 1 Refill Prov:TRENT HERNÁNDEZ MD 06/11/18 Alendronate Sodium (ALENDRONATE SODIUM) 70 Mg Tablet, 1 TAB PO QWEEK for 90 Days, #12 TAB 3 Refills Give dose early every Saturday morning before breakfast, and remain upright for half an hour. Prov:TRENT HERNÁNDEZ MD 02/17/18 Aspirin (ASPIRIN EC) 81 Mg Tabec, 1 TAB PO QDAY, #90 TAB 4 Refills Prov:TRENT HERNÁNDEZ MD 02/12/18 Glimepiride (GLIMEPIRIDE) 1 Mg Tablet, 1 MG PO QDAY, #90 TAB 3 Refills Prov:TRENT HERNÁNDEZ MD 12/31/17 Calcium Carbonate (OYSTER SHELL CALCIUM) 500 Mg Tablet, 1000 MG PO DAILY, #180 TAB 3 Refills Prov:TRENT HERNÁNDEZ MD 12/23/17 Acetaminophen (MAPAP) 325 Mg Tab, 650 MG PO BID PRN for PAIN OR FEVER 100 OR GREATER, #360 TAB 11 Refills Prov:TRENT HERNÁNDEZ MD 04/16/17 Blood Sugar Diagnostic (FREESTYLE LITE TEST STRIPS) 1 Each Strip, 1 EACH MC DAILY PRN for as directed, #1 BOX 4 Refills Check blood sugar as needed. Prov:TRENT HERNÁNDEZ MD 12/21/16 Oxygen (OXYGEN) Inha, 2 L INH HS, #2 L Prov:TRENT HERNÁNDEZ MD 11/10/15 Reported Medications Polyethylene Glycol 3350 (MIRALAX) 17 Gm Powd.pack, 17 GM PO QDAY, PKT 10/28/18 Warfarin Sodium (WARFARIN SODIUM) 3 Mg Tablet, 4.5 MG PO MON,WED,FRI, TAB 10/28/18 Warfarin Sodium (WARFARIN SODIUM) 3 Mg Tablet, 3 MG PO SUN,E,GERSON,SAT, TAB 10/28/18 Docusate Sodium (DOCUSATE SODIUM) 100 Mg Tablet, 2 TAB PO BID 05/09/18 Calcium Carbonate/Mag Hydrox (ANTACID CHEWABLE TABLET) 1 Each Tab.chew, 750 MG PO PRN, TAB.CHEW 05/09/18 Ondansetron 4 Mg Odt (ONDANSETRON 4 MG ODT) 4 Mg Tab.rapdis, 4 MG PO Q12H PRN for NAUSEA 12/19/17 Dextran 70/Hypromellose (ARTIFICIAL TEARS) 1 Each Droperette, 1 EACH OP TID Also PRN from dry eyes 12/19/17 Diet: Diabetic Activity: As Tolerated, With Walker Special Instructions: Take Ceftriaxone antibiotic infusions for 12 additional days. Follow up with primary care provider in 1 week. Copies to: TRENT HERNÁNDEZ MD ; Venous Thromboembolism Antithrombotics Is Pt On Any Antithrombotics?: Yes Problem Qualifiers (1) Cellulitis: Site of cellulitis: extremity Site of cellulitis of extremity: lower extremity Laterality: left Qualified Codes: L03.116 - Cellulitis of left lower limb MAGDALENA HART [employer] Nov 05, 2018 10:37
--- NOTE | 2018-11-05 13:33 | NUR ---
OCCUPATIONAL THERAPY Dressing Assistance: Maximum assistance Dressing Aid Required: None Bathing Assistance: N/T Home Assessment: Not Completed Feeding Assistance: Set-up Feeding Specialized Equipment: None Toilet Use: Max Ax1-2 Verbalizes Needs: Yes Understands Precautions: Yes Cooperative: Yes Family Teaching: No Occupational Therapy Comment:
[2018-11-05] MEDS: traMADol 50 MG TAB PO PRN (13:39)
[2018-11-05] MEDS: WATER STERILE IVP SCH (13:40)
[2018-11-05] MEDS: CEFTRIAXONE IVP SCH (13:40)
[2018-11-05] MEDS: WARFARIN SOD 2.5 MG TAB 2.5 MG, WARFARIN SOD 2 MG TAB 2 MG PO SCH (13:40)
== END 2018-11-05 14:40 | disposition home or self-care (01) | DRG 871 ==
LOC: ER 11:32 → MED 16:09 → ICU 20:00 → MED 11-01 15:15
PROVIDERS: ADMIT Internal Medicine; ATTEND Internal Medicine
PROC: 02HV33Z Insertion of Infusion Device into Superior Vena Cava, Percutaneous Approach (ICD-10-PCS; principal; 2018-10-28)
PROC: 0HDJXZZ Extraction of Left Upper Leg Skin, External Approach (ICD-10-PCS; 2018-10-29)
DX: A41.59 Other Gram-negative sepsis (principal); R65.21 Severe sepsis with septic shock; L03.116 Cellulitis of left lower limb; N39.0 Urinary tract infection, site not specified; I50.32 Chronic diastolic (congestive) heart failure; E11.69 Type 2 diabetes mellitus with other specified complication; N32.81 Overactive bladder; I65.29 Occlusion and stenosis of unspecified carotid artery; E11.40 Type 2 diabetes mellitus with diabetic neuropathy, unspecified; E03.9 Hypothyroidism, unspecified; Z79.84 Long term (current) use of oral hypoglycemic drugs; Z79.01 Long term (current) use of anticoagulants; Z86.711 Personal history of pulmonary embolism; Z88.5 Allergy status to narcotic agent; Z88.8 Allergy status to other drugs, medicaments and biological substances; Z88.6 Allergy status to analgesic agent
CPT/HCPCS: 36415; 36416; 36573; 70450; 71045; 80202; 80305; 80320; 81001; 82040; 82140; 82247; 82310; 82374; 82435; 82565; 82947; 82948; 83605; 83735; 83880; 84075; 84132; 84155; 84295; 84443; 84450; 84460; 84484; 84520; 85025; 85610; 87040; 87077; 87088; 87186; 93005; 93306; 96361; 96372; 96374; 96375; 97161; 97162; 97166; 99285; A4216; C1751; J0131; J0295; J0690; J0696; J1720; J3370; J3480; J7030; J7040; J7050; J7060; J7120; Q9967